=== PATIENT | female | born 1965 | race Caucasian/White ===

== ENCOUNTER 2024-10-03 07:50 | Outpatient (CLI) | payer OTHER, SELFPAY ==
--- NOTE | 2024-10-03 07:54 | MM_ITS ---
WS: [id number] BILATERAL SCREENING DIGITAL TOMOSYNTHESIS MAMMOGRAM WITH CAD HISTORY: SCREENING COMPARISON: None available. Bilateral CC and MLO views with tomosynthesis and synthetic mammography submitted. Computer aided det ection analyzed. Breast composition: The breasts are heterogeneously dense, which may obscure small masses. No suspici ous masses, microcalcifications or architectural distortion. MM/MM scr BI tomosynthesis [id number] IMPRESSION: BI-RADS: 3 - Probably Benign FOLLOW UP: 1 Year Follow-up
== END 2024-10-03 07:51 | disposition home or self-care (01) ==
LOC: RAD 07:52
PROVIDERS: PCP Nurse Practitioner; Visit Provider Nurse Practitioner
DX: Z12.31 Encounter for screening mammogram for malignant neoplasm of breast (principal); R92.333 Mammographic heterogeneous density, bilateral breasts
CPT/HCPCS: 77063; 77067

== ENCOUNTER → 2024-10-24 08:59 | Outpatient (BNVA) | payer OTHER, SELFPAY | PROVIDERS: PCP Nurse Practitioner; Visit Provider Nurse Practitioner Family | DX: L71.8 Other rosacea (principal); L91.8 Other hypertrophic disorders of the skin; D18.01 Hemangioma of skin and subcutaneous tissue; L85.3 Xerosis cutis; Z08 Encounter for follow-up examination after completed treatment for malignant neoplasm | CPT/HCPCS: 17000; 17110; 99204 ==

== ENCOUNTER → 2024-10-30 08:21 | Outpatient (BNVA) | payer OTHER, SELFPAY | PROVIDERS: PCP Nurse Practitioner; Visit Provider Specialist | DX: S83.206A Unspecified tear of unspecified meniscus, current injury, right knee, initial encounter; M25.561 Pain in right knee; G89.29 Other chronic pain; X58.XXXA Exposure to other specified factors, initial encounter | CPT/HCPCS: 73560; 73565; 99204 ==

== ENCOUNTER → 2024-11-06 07:38 | Outpatient (BNVA) | payer OTHER, SELFPAY | PROVIDERS: PCP Nurse Practitioner; Visit Provider Surgery | DX: Z12.11 Encounter for screening for malignant neoplasm of colon (principal); R03.0 Elevated blood-pressure reading, without diagnosis of hypertension | CPT/HCPCS: 99204 ==

== ENCOUNTER 2024-11-14 07:55 | Day surgery (SDC) | payer OTHER, SELFPAY ==
[2024-11-14 08:15] VITALS: BP 143/102; PULSE 93; RESP 18; TEMP 36.4; O2SAT 97; BMI 28.3
--- NOTE | 2024-11-14 08:18 | P.ANESASSM_ITS ---
Pre-Anesthetic Assessment Height/Weight: Height 1.6 m Preop Diagnosis: screening Operation Date: 11/14/24 09:15 Proposed Procedures p Colonoscopy 67174, G0121, Z12.11(Not Applicable) - Vladimir Duran MD Familial anesthetic complications: none Was Beta Radha taken within 24 hours: N/A Was Clonidine taken within 24 hours: N/A Social Alcohol and No tobacco Occassional alcohol, quit smoking 2004 Exam alert, oriented x 3, clear to auscultation bilaterally and regular rate & rhythm Airway Submandibular: within normal limits Cervical ROM: within normal limits Mallampati: Class II Dentition: full History/ROS No significant history except as noted and No significant complaints Pulmonary Chronic Obstructive Pulmonary Disease CV/HEM None reported None reported Hepatic None reported GI Gastroesophageal Reflux Disease Metabolic None reported Musc/skel None reported Rheumatoid arthritis Neuropsych None reported Anesthetic Plan ASA status: 3 Anesthesia: MAC Risk of > 500 ml blood loss (7ml/kg in children): No Medications/Allergies Home Medications ?Medication ?Instructions ?Recorded ?Confirmed ?Last Taken ?Type adalimumab 40 mg/0.8 mL See Rx Instructions SUBCUT . COMPLEX 10/30/24 11/14/24 11/01/24 History subcutaneous pen kit amitriptyline 50 mg tablet 50 mg PO DAILY 10/30/2404/0211/13/24 History bupropion HCl 150 mg 24 hr tablet, 150 mg PO QPM 10/3011/14/24 11/13/24 History extended release calcium 315 mg (as 1 tab PO BID 10/30/2411/13/24 History citrate)-vitamin D3 5 mcg (200 unit) tablet diclofenac sodium 1 % topical gel 2 g topical QID 10/1011/14/24 11/13/24 History (Arthritis Pain (diclofenac)) docusate sodium 50 mg capsule 50 mg PO BID 10/30/2411/13/24 History folic acid 1 mg tablet 1 mg PO DAILY 10/30/2411/1411/13/24 History hydroxychloroquine 300 mg tablet 300 mg PO DAILY 10/3011/14/24 11/13/24 History loratadine 10 mg tablet 10 mg PO DAILY 10/30/2404/0211/13/24 History methotrexate (PF) 25 mg/0.5 mL 25 mg SUBCUT .WEEKLY 11/14/24 11/08/24 History subcutaneous auto-injector (Rasuvo (PF)) pantoprazole 40 mg granules 40 mg PO DAILY 10/30/2411/13/24 History delayed-release for susp in packet sennosides 8.6 mg-docusate sodium 1 tab-cap PO DAILY 0 10/30/24 11/14/24 11/13/24 History 50 mg tablet syringe with needle 1 mL 27 gauge 10/30/24 11/14/24 U nknown History x 3/8 (BD Tuberculin Slip-Tip) zolpidem 5 mg tablet 5 mg PO DAILY 10/30/2411/1411/13/24 History Allergies Allergy/AdvReac Type Severity Reaction Status Date / Time Latex, Natural Rubber Allergy Intermediate hives Verified 11/12/24 10:06 small pox vaccine Allergy Intermediate swelling Uncoded 11/12/24 10:06 [facility] Anesthesia Social History Smoking and tobacco/nicotine status: never used tobacco/nicotine Data Anesthesia Cardiac Studies: No Data to Display
--- NOTE | 2024-11-14 08:18 | ANES.PREANE2 ---
Pre-Anesthetic Assessment Height/Weight: Height 1.6 m Preop Diagnosis: screening Operation Date: 11/14/24 09:15 Proposed Procedures p Colonoscopy 70924, G0121, Z12.11(Not Applicable) - Vladimir Duran MD Familial anesthetic complications: none Was Beta Radha taken within 24 hours: N/A Was Clonidine taken within 24 hours: N/A Social Alcohol and No tobacco Occassional alcohol, quit smoking 2004 Exam alert, oriented x 3, clear to auscultation bilaterally and regular rate & rhythm Airway Submandibular: within normal limits Cervical ROM: within normal limits Mallampati: Class II Dentition: full History/ROS No significant history except as noted and No significant complaints Pulmonary Chronic Obstructive Pulmonary Disease CV/HEM None reported None reported Hepatic None reported GI Gastroesophageal Reflux Disease Metabolic None reported Musc/skel None reported Rheumatoid arthritis Neuropsych None reported Anesthetic Plan ASA status: 3 Anesthesia: MAC Risk of > 500 ml blood loss (7ml/kg in children): No Medications/Allergies Home Medications ?Medication ?Instructions ?Recorded ?Confirmed ?Last Taken ?Type adalimumab 40 mg/0.8 mL See Rx Instructions SUBCUT .COMPLEX 10/30/24 11/14/24 11/01/24 History subcutaneous pen kit amitriptyline 50 mg tablet 50 mg PO DAILY 10/30/24 11/14/24 11/13/24 History bupropion HCl 150 mg 24 hr tablet, 150 mg PO QPM 10/30/24 11/14/24 11/13/24 History extended release calcium 315 mg (as 1 tab PO BID 10/30/24 11/14/24 11/13/24 History citrate)-vitamin D3 5 mcg (200 unit) tablet diclofenac sodium 1 % topical gel 2 g topical QID 10/30/24 11/14/24 11/13/24 History (Arthritis Pain (diclofenac)) docusate sodium 50 mg capsule 50 mg PO BID 10/30/24 11/14/24 11/13/24 History folic acid 1 mg tablet 1 mg PO DAILY 10/30/24 11/14/24 11/13/24 History hydroxychloroquine 300 mg tablet 300 mg PO DAILY 10/30/24 11/14/24 11/13/24 History loratadine 10 mg tablet 10 mg PO DAILY 10/30/24 11/14/24 11/13/24 History methotrexate (PF) 25 mg/0.5 mL 25 mg SUBCUT .WEEKLY 10/30/24 11/14/24 11/08/24 History subcutaneous auto-injector (Rasuvo (PF)) pantoprazole 40 mg granules 40 mg PO DAILY 10/30/24 11/14/24 11/13/24 History delayed-release for susp in packet sennosides 8.6 mg-docusate sodium 1 tab-cap PO DAILY 10/30/24 11/14/24 11/13/24 History 50 mg tablet syringe with needle 1 mL 27 gauge 10/30/24 11/14/24 Unknown History x 3/8 (BD Tuberculin Slip-Tip) zolpidem 5 mg tablet 5 mg PO DAILY 10/30/24 11/14/24 11/13/24 History Allergies Allergy/AdvReac Type Severity Reaction Status Date / Time Latex, Natural Rubber Allergy Intermediate hives Verified 11/12/24 10:06 small pox vaccine Allergy Intermediate swelling Uncoded 11/12/24 10:06 [facility] Anesthesia Social History Smoking and tobacco/nicotine status: never used tobacco/nicotine Data Anesthesia Cardiac Studies: No Data to Display
[2024-11-14] MEDS: sodium chloride 0.9% 500 ML 15 ML IV (08:21)
--- NOTE | 2024-11-14 08:25 | P.HPUD_ITS ---
Surgery/Procedure H&P Update DATE OF PROCEDURE: November 14, 2024 DATE H&P PERFORMED: 11/06/24 H&P UPDATE INFORMATION: I have reviewed H&P completed within last 30 days, I have examined patient prior to procedure, No changes to prior documentation and H&P is in [facility] EMR on date indicated PREOP DIAGNOSIS: screening PLANNED PROCEDURE: Operation Date: 11/14/24 09:15 Proposed Procedures p Colonoscopy 79742, G0121, Z12.11(Not Applicable) - Vladimir Duran MD
[2024-11-14 09:03] VITALS: BP 118/76; PULSE 81; RESP 18; TEMP 36.2; O2SAT 90
[2024-11-14 09:21] VITALS: BP 128/78; PULSE 70; RESP 16; O2SAT 95
[2024-11-14 09:26] VITALS: O2SAT 98
--- NOTE | 2024-11-14 09:40 | ANE.PACU2 ---
Inpatient post-anesthesia follow up: Airway intact: Yes Vital signs: Temperature 97.2 F Pulse Rate 70 Respiratory Rate 16 Blood Pressure 128/78 Pulse Oximetry 98 Oxygen Delivery Me thod Room Air Oxygen Flow Rate Fraction of Inspir ed Oxygen Hydration adequate: Yes Nausea and vomiting: No Pain level: 1 Mental status: Baseline
== END 2024-11-14 09:40 | disposition home or self-care (01) ==
PROVIDERS: PCP Nurse Practitioner; Visit Provider Surgery
PROC: 0DJD8ZZ Inspection of Lower Intestinal Tract, Via Natural or Artificial Opening Endoscopic (ICD-10-PCS; CPT 45378; principal; 2024-11-14 09:15)
DX: Z12.11 Encounter for screening for malignant neoplasm of colon (principal); J44.9 Chronic obstructive pulmonary disease, unspecified; K21.9 Gastro-esophageal reflux disease without esophagitis; Z87.891 Personal history of nicotine dependence; Z79.899 Other long term (current) drug therapy; Z88.8 Allergy status to other drugs, medicaments and biological substances; K63.89 Other specified diseases of intestine; D12.5 Benign neoplasm of sigmoid colon
CPT/HCPCS: 45380; 45385; 88305; J2704; J7040

== ENCOUNTER 2024-11-15 07:50 | Outpatient (CLI) | payer OTHER, SELFPAY ==
--- NOTE | 2024-11-15 08:00 | MR_ITS ---
WS: [id number] MRI RIGHT KNEE ARTHROGRAM TECHNIQUE: Axial PD, coronal PD fat sat, coronal PD, sagittal PD, and sagittal PD fat-sat images obtained. Intra-articular gadolinium CLINICAL INFORMATION: right knee pain. History of RIGHT knee scope x2. FINDINGS: Distal quadriceps and patella tendons are intact. Hypertrophic patella. Moderate chondromalacia patella. Medial and lateral patellar retinaculum are intact. Grade III chondromalacia involving the medial joint compartment with chondral fissuring and and a near full-thickness cartilage defect. No subchondral edema. Diffuse thickening with increased T1 and T2 signal involving the ACL likely due to mucoid degeneration. Recommend correlation for prior ACL injury. Normal lateral meniscus. High-grade tear involving the medial meniscus at the meniscal root with peripheral extrusion of the medial meniscus. Blunting of the posterior horn. Recommend correlation with prior meniscectomy. Full-thickness cartilage defect along the articular surface medial femoral condyle measures approximately 7 mm in AP dimension and 5 mm in transverse dimension. Small amount of fluid deep to the lateral collateral ligament which appears intact. Normal popliteus. Normal medial collateral ligament. Normal popliteal fossa.. Normal PCL. MR/MR knee RT wo/w con [id number] IMPRESSION: 1. 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 Recommend jeri elation for prior ACL injury. Normal PCL. 2. Chronic appearing tear involving the medial meniscus posterior horn at the meniscal root with moderate to loss of the medial joint space. 3. Near full-thickness cartilage defect involving the medial femoral condyle m easuring 7 x 5 mm at the articular surface. No subchondral edema. 4. Moderate chondromalacia patella. 5. Small amount of fluid deep to the lateral collateral ligament can be seen w ith grade 1 injury. LCL and MCL appear intact. 6. No other acute findings. Outbridge grading: grade III: partial-thickness cartilage loss with focal ulcer ation
--- NOTE | 2024-11-15 08:00 | IR_ITS ---
WS: [id number] Right knee arthrogram for MRI of the right knee, 11/15/2024 Clinical Data: knee pain Comparison: Bilateral knees, 10/30/2024 Fluoroscopy time: 0min [id number] # of spot films: 1 Findings: The lateral aspect of the right knee was cleansed with iodine. Approximately 5 mL of 1% lidocaine were injected to anesthetize the skin and subcutaneous tissues. A 22-gauge spinal needle was inserted in the knee joint and a mixture of saline, gadolinium, contrast and lidocaine was injected to a volume of 40 mL. No complications occurred. IR/[place] [id number] Impression: Right knee arthrogram
[2024-11-15] MEDS: iohexol 240 mg/mL 50 mL Btl 25 ML INTRA-ARTI (10:33)
== END 2024-11-15 07:51 | disposition home or self-care (01) ==
LOC: RAD 07:51
PROVIDERS: PCP Nurse Practitioner; Visit Provider Specialist
DX: S83.206A Unspecified tear of unspecified meniscus, current injury, right knee, initial encounter (principal); M25.561 Pain in right knee; M22.41 Chondromalacia patellae, right knee; X58.XXXA Exposure to other specified factors, initial encounter
CPT/HCPCS: 27369; 73723; 77002; A9577

== ENCOUNTER → 2024-11-26 09:18 | Outpatient (BNVA) | payer OTHER, SELFPAY | PROVIDERS: PCP Nurse Practitioner; Visit Provider Surgery | DX: Z09 Encounter for follow-up examination after completed treatment for conditions other than malignant neoplasm (principal); R03.0 Elevated blood-pressure reading, without diagnosis of hypertension | CPT/HCPCS: 99213 ==

== ENCOUNTER → 2024-12-04 07:57 | Outpatient (BNVA) | payer OTHER, SELFPAY | PROVIDERS: PCP Nurse Practitioner; Visit Provider Specialist | DX: M25.561 Pain in right knee (principal); Z09 Encounter for follow-up examination after completed treatment for conditions other than malignant neoplasm | CPT/HCPCS: 20610; 99214; J1100; J2795; J3301 ==

== ENCOUNTER 2024-12-18 10:21 | Outpatient (RCR) | payer OTHER, SELFPAY | END 2025-01-06 23:59 | disposition home or self-care (01) | LOC: SPT 10:21 | PROVIDERS: Visit Provider Specialist | DX: M25.561 Pain in right knee (principal) | CPT/HCPCS: 97110; 97161 ==

== ENCOUNTER → 2024-12-31 08:46 | Outpatient (BNVA) | payer OTHER, SELFPAY | PROVIDERS: PCP Nurse Practitioner; Visit Provider Internal Medicine Rheumatology | DX: M05.79 Rheumatoid arthritis with rheumatoid factor of multiple sites without organ or systems involvement (principal); Z79.899 Other long term (current) drug therapy; Z71.85 Encounter for immunization safety counseling | CPT/HCPCS: 36415; 80076; 82565; 85025; 85651; 86140; 86480; 86704; 86803; 87340; 99204 ==

== ENCOUNTER 2025-01-07 16:38 | Outpatient (RCR) | payer OTHER, SELFPAY | END 2025-02-05 23:59 | disposition home or self-care (01) | LOC: SPT 16:38 | PROVIDERS: Visit Provider Specialist | DX: M25.561 Pain in right knee (principal) | CPT/HCPCS: 97110 ==

== ENCOUNTER 2025-02-06 05:00 | Outpatient (RCR) | payer OTHER, SELFPAY | END 2025-02-28 09:05 | disposition home or self-care (01) | LOC: SPT 05:00 | PROVIDERS: Visit Provider Specialist | DX: M25.561 Pain in right knee (principal) | CPT/HCPCS: 97110 ==

== ENCOUNTER 2025-04-25 07:58 | Emergency (ER) | payer OTHER, SELFPAY ==
--- OUTSIDE RECORDS SUMMARY | 2024-07-15 08:00 | XMS_ITS | Encounter Summary ---
Author Name [facility] Address [address] [place] [address] Care Team Providers Care Caustics Loader Name Role Phone KAT HARGROVE Primary Care Provider Unavail able ANDREZ PAYNE Primary Care Provider Unavail able Insurance Providers: All historical and current Section Date Range: From patient's date of to the date document was created. This section includes the names of all active insurance providers for the patient. Insurance Provider Type of Coverage Plan Name Start of Policy Coverage End of Policy Coverage Group Number Member ID Insurance Provider's Telephone Number Policy Luna's Name Patient's Relationship to Policy Luna BCBS FEP RETIREE [id number] RETIR EE Feb 04, 2007 [id number] ALBERT,A NNETTE PATIENT BCBS FEP PREFERRED PROVIDER ORGANIZAT ION (PPO) [id number] Oct 09, 2005 [id number] [phone] ALBERT,A NNETTE PATIENT [place] F[place] PRESCRIPT [place]ON [id number] Oct 09, 2007 [id number] ALBERT,See NNETTE PATIENT [place] FEP RX [id number] PRESCRIPT ION [id number] Oct 09, 2006 [id number] [phone] See PRICE PATIENT Selected Encounter This section includes the information on record at [place] for the Encounter. Date/Time Encounter Type Encounter Description Reason Provider Source Jul 15, 2024 01:00 PM OFFICE O/P EST MOD 30 MIN RHEUMATOLOGY/ARTH RITIS ICD-10-CM M06.9 Rheumatoid arthritis, unspecified ARMANDO AMANDA IHAri Encounter Template Text not used by [place] Assessments - Encounter Diagnoses This section includes the primary and secondary diagnoses documented for the Encounter. Date/Time Primary/Secondary Diagnosis Diagnosis Name Provider Source Jul 15, 2024 01:50 PM PRIMARY Rheumatoid arthritis, unspecified DELMER GALICIA [facility] Jul 15, 2024 01:50 PM SECONDARY Other jail (current) drug therapy DELMER GALICIA [facility] Plan of Treatment: Future Appointments (+ 6 months) and Future Tests (+/- 45 days) The Plan of Treatment section includes future care activities for the patient from all [place] treatmentfacilities. This section includes future appointments and future orders which are active, pending or scheduled. Future Appointments This section includes appointments that were scheduled to occur 6 months from the date of the Encounter, up to a maximum of 20 appointments. The data comes from all [place] treatment facilities. Appointment Date/Time Appointment Type Appointme nt Facility Name Sep 19, 2024 09:01 AM AMBULATORY - MEDICINE [facility] Oct 03, 2024 08:20 AM AMBULATORY - NEUROLOGY [facility] Oct 14, 2024 09:00 AM AMBULATORY - MEDICINE [facility] Oct 14, 2024 02:00 PM AMBULATORY - MEDICINE [facility] Oct 24, 2024 09:30 AM AMBULATORY - MEDICINE [facility] Oct 30, 2024 08:30 AM AMBULATORY - MEDICINE [facility] Nov 05, 2024 09:30 AM AMBULATORY - MEDICINE [facility] Nov 06, 2024 08:00 AM AMBULATORY - MEDICINE [facility] Nov 06, 2024 02:10 PM AMBULATORY - MEDICINE [facility] Dec 05, 2024 09:11 AM AMBULATORY - MEDICINE [facility] Dec 31, 2024 09:00 AM AMBULATORY - MEDICINE [facility] Active, Pending, and Scheduled Orders This section includes a listing of several types of active, pending, and scheduled orders, including clinic medications orders, diagnostic test orders, procedure orders and consult orders; where the start date of the order is 45 days before the date of the Encounter or 45 days after the date of theEncounter. The data comes from all [place] treatment facilities. Test Date/Time Test Type Test Details Facility Name Jul 12, 2024 12:00 AM Laboratory - Chemi stry Order CBC WITH AUTO DIFF*CI,NE BLOOD, LAVENDER SP [facility] Jul 12, 2024 12:00 AM Laboratory - Chemi stry Order ALT*NE BLOOD, RED OR GREEN OR GOLD SP ONCE [facility] Jul 12, 2024 12:00 AM Laboratory - Chemi stry Order AST*NE BLOOD, RED OR GREEN OR GOLD SP ONCE [facility] Jul 12, 2024 12:00 AM Laboratory - Chemi stry Order ALBUMIN*NE BLOOD, RED OR GREEN OR GOLD SP ONCE [facility] Jul 12, 2024 12:00 AM Laboratory - Chemi stry Order CREATININE + eGFR*NE BLOOD, RED OR GREEN OR GOLD SP ONCE [facility] Jul 12, 2024 12:00 AM Laboratory - Chemi stry Order SEDRATE*NE BLOOD, SED RATE SP ONCE [facility] Jul 12, 2024 12:00 AM Laboratory - Chemi stry Order C-REACTIVE PROTEIN*NE BLOOD, RED OR GREEN OR GOLD SP [facility] Jul 15, 2024 01:20 PM Laboratory - Chemi stry Order ALT*NE BLOOD, RED OR GREEN OR GOLD SP ONCE [facility] Lab Results: +/- 30 days of the encounter This section includes the Chemistry and Hematology Lab Results on record with [place] for the patient. Radiology Reports and Pathology Reports are provided separately, in subsequent sections. Lab Results This section contains the Chemistry/Hematology Results that were resulted 30 days before or 30 daysafter the date of the Encounter. Date/Time Source Result Type Result - Unit Interpretation Reference Range Specimen Type Comment Jul 15, 2024 02:16 PM [facility] C-REACTIVE PROTEIN*NE BLOOD Specimen Type: BLOOD Comment: eGFR(mL/min/1.73 m2) CKD stage Interpretation >=90 G1 Normal 60-89 G2 Mild decrease 45-59 G3A Mild to moderate decrease 30-44 G3B Moderate to severe decrease 15-29 G4 Severe decrease <15 G5 Kidney failure Ordering Provider: DELMER GALICIA Report Released Date/Time: Jul 15, 2024 01:20 PM Reporting Lab: [facility] [address] [phone] Performing Lab: [facility] [address] [phone] C-REACTIVE PROTEIN*NE <0.5 mg/dL < 1.0 Jul 15, 2024 02:16 PM [facility] AST*NE BLOOD Specimen Type: BLOOD Comment: eGFR(mL/min/1.73 m2) CKD stage Interpretation >=90 G1 Normal 60-89 G2 Mild decrease 45-59 G3A Mild to moderate decrease 30-44 G3B Moderate to severe decrease 15-29 G4 Severe decrease <15 G5 Kidney failure Ordering Provider: DELMER GALICIA Report Released Date/Time: Jul 15, 2024 01:20 PM Reporting Lab: [facility] [address] [phone] Performing Lab: [facility] [address] [id number] AST*NE 29 [IU]/L 15-46 Jul 15, 2024 02:16 PM [facility] ALBUMIN*NE BLOOD Specimen Type: BLOOD Comment: eGFR(mL/min/1.73 m2) CKD stage Interpretation >=90 G1 Normal 60-89 G2 Mild decrease 45-59 G3A Mild to moderate decrease 30-44 G3B Moderate to severe decrease 15-29 G4 Severe decrease <15 G5 Kidney failure Ordering Provider: DELMER GALICIA Report Released Date/Time: Jul 15, 2024 01:20 PM Reporting Lab: [facility] [address] [phone] Performing Lab: [facility] [address] [phone] ALBUMIN*NE 4.6 g/dL 3.5-5.0 Jul 15, 2024 02:16 PM [facility] SEDRATE*NE BLOOD Specimen Type: BLOOD No comment entered. Ordering Provider: DELMER GALICIA Report Released Date/Time: Jul 15, 2024 01:20 PM Reporting Lab: [facility] [address] [phone] Performing Lab: [facility] [address] [phone] SEDRATE*NE 12 mm/h 0-30 Jul 15, 2024 02:16 PM [facility] CREATININE + eGFR*NE BLOOD Specimen Type: BLO OD Comment: eGFR(mL/min/1.73 m2) CKD stage Interpretation >=90 G1 Normal 60-89 G2 Mild decrease 45-59 G3A Mild to moderate decrease 30-44 G3B Moderate to severe decrease 15-29 G4 Severe decrease <15 G5 Kidney failure Ordering Provider: DELMER GALICIA Report Released Date/Time: Jul 15, 2024 01:20 PM Reporting Lab: [facility] [address] [place] [address] Performing Lab: [facility] [address] [place] [address] CREATININE*NE 1.0 mg/dL 0.5-1.0 eGFR (CKD-EPI) 66 Jul 15, 2024 02:16 PM [facility] CBC WITH AUTO DIFF*CI,NE BLOOD Specimen Type: BLOOD No comment entered. Ordering Provider: DELMER GALICIA Report Released Date/Time: Jul 15, 2024 01:20 PM Reporting Lab: [facility] [place] [address] Performing Lab: [facility] [place] [address] WBC 5.6 10*3/uL 4.0-11.0 RBC 4.52 10*6/uL 3.7-5.4 HGB 14.1 g/dL 11.5-16 HCT 42.3 34-48 MCV 93.6 fL 80.0-98.0 MCH 31.2 pg 27.0-33.0 MCHC 33.3 g/dL 32.0-36.0 PLT 254 10*3/uL 150-450 RDW 13.4 11.5-15.0 ABS NEUTROPHIL 3.1 10*3/uL 1.7-7.0 NEUTROPHIL % 55.1 43.0-76.0 LYMPHOCYTE % 31.9 16.0-45.0 MONOCYTE % 7.5 5.0-14.0 EOSINOPHIL % 4.1 0.0-5.0 BASOPHIL % 1.2 H 0.0-1.0 ABS LYMPHOCYTE 1.8 10*3/uL 1.0-3.5 ABS MONOCYTE 0.4 10*3/uL 0.2-1.1 ABS EOSINOPHIL 0.2 10*3/uL 0.0-0.4 ABS BASOPHIL 0.1 10*3/uL 0.0-0.1 MPV 10.1 fL 8.3-12.4 IMMATURE GRAN % 0.2 0.0-0.9 ABS IMMATURE GRAN 0.0 10*3/uL 0.00-0.07 NUCLEATED RBC % 0.0 0.0-0.2 ABS NUCLEATED RBC 0.0 10*3/uL 0.00-0.12 Social History: Smoking Status (Most current) and Tobacco Use (All prior to encounter date) This section includes the most current, and the historical, smoking and tobacco- related health factors from the [place] facility where the Encounter took place. Current Smoking Status This section includes the most current smoking, or tobacco-related health factor, from the [place] facility where the Encounter took place. Date/Time Current Smoking Status Comment Byron obrien February 14, 2023 08:15 AM VA-TOBACCO FORMER USER [facility] Tobacco Use History This section includes a history of the smoking, or tobacco-related health factors, that were collected on or before the date of the Encounter. The data comes from the [place] facility where the Encounter took place. Date/Time Smoking Status/Tobacco Use Comment Karen tarango February 14, 2023 08:15 AM [place]-TOBACCO QUIT 15 YRS OR MORE [facility] Encounter Notes: All associated encounter notes This section contains the clinical notes associated to the Encounter. Date/Time Encounter Note(s) Provider Source Jul 15, 2024 01:23 PM RHEUMATOLOGY OUTPATIENT NOTE: LOCAL TITLE: RHEUMATOLOGY CLINIC NOTE STANDARD TITLE: RHEUMATOLOGY OUTPATIENT NOTE DATE OF NOTE: JUL 15, 2024@13:23 ENTRY DATE: JUL 15, 2024@13:27:22 AUTHOR: DELMER GALICIA EXP COSIGNER: ARMANDO AMANDA URGENCY: STATUS: COMPLETED RHEUMATOLOGY CLINIC NOTE Has ADDENDA ACTIVE PROBLEMS: 1. Rheumatoid arthritis - Diagnosed 11/2018 - RF negative, anti-CCP 60, RYAN 1:80; non-erosive (hands/feet) - Previous tx: Triple tx with hcq, ssz discontinued after enbrel initiated - Oral MTX held temporarily in 2020 with acute ALT/AST elevation, now resolved Enbrel 50mg sc weekly (start date: 12/2020 to 08/2022) lost efficacy Current tx: MTX 15 mg sc weekly, Humira 40 mg q14d. folic acid 4 mg daily. HCQ 200 BID. 2. Keratoconjunctivitis sicca 3. Hyperlipidemia 4. Irritable bowel syndrome 5. PTSD 6. GERD 7. Tobacco use history - quit in 2004 8. Acute ALT/AST elevation in May 2021, resolved. ALT peaked at 140, AST peaked at 105. Hepatitis A/B/C viral studies, anti-smooth muscle antibody negative. Moderate alcohol use (3-4 drinks per week), BMI 30, previous hyperlipidemia/hypertriglycerid emia 9. Basal cell carcinoma - nose - s/p Mohs 2020 10. [facility] OA Active Outpatient Medications (excluding Supplies): Active Outpatient Medications Status 1) ADALIMUMAB-BWWD 40MG/0.8ML AUTOINJECTOR INJECT 40MG ACTIVE (0.8ML) UNDER THE SKIN EVERY 14 DAYS 2) AMITRIPTYLINE HCL 50MG TAB TAKE ONE TABLET BY MOUTH ACTIVE AT BEDTIME FOR MOOD 3) BUPROPION HCL 150MG 12HR SA TAB TAKE ONE TABLET BY ACTIVE (S) MOUTH EVERY 12 HOURS FOR MOOD 4) CALCIUM CITRATE 315MG/VIT D 200 UNT TAB TAKE 2 ACTIVE TABLETS BY MOUTH TWICE A DAY 5) CLONIDINE HCL 0.1MG TAB TAKE ONE TABLET BY MOUTH AT ACTIVE (S) BEDTIME NEEDED FOR NIGHTMARES FOR SYMPTOMS 6) DICLOFENAC NA 1% TOP GEL APPLY 2 GRAM TOPICALLY FOUR ACTIVE TIMES A DAY (USE DOSING CARD TO MEASURE DOSE) 7) DOCUSATE NA 50MG/SENNOSIDES 8.6MG TAB TAKE 2 TABLETS ACTIVE BY MOUTH DAILY FOR CONSTIPATION 8) FOLIC ACID 1MG TAB TAKE FOUR TABLETS BY MOUTH EVERY ACTIVE DAY 9) GABAPENTIN 300MG CAP TAKE THREE CAPSULES BY MOUTH ACTIVE (S) EVERY DAY FOR NIGHT SWEATS FOR NIGHT SWEATS 10) HYDROXYCHLOROQUINE SULFATE 300MG TAB TAKE ONE TABLET ACTIVE (S) BY MOUTH EVERY DAY FOR RHEUMATOID ARTHRITIS 11) LACTOBACILLUS ACIDOPHILUS CHEW TAB CHEW 2 TABLETS BY ACTIVE (S) MOUTH EVERY DAY FOR DIETARY SUPPLEMENT FOR DIGESTION 12) LORATADINE 10MG TAB TAKE ONE TABLET BY MOUTH EVERY ACTIVE (S) DAY FOR ALLERGIES (SAME CLARITIN) 13) METHOTREXATE NA 25MG/ML INJ INJECT 15 MG (0.6 ML) ACTIVE UNDER THE SKIN EVERY 7 DAYS 14) PANTOPRAZOLE NA 40MG EC TAB TAKE ONE TABLET BY MOUTH ACTIVE (S) EVERY DAY FOR GASTROESOPHAGEAL REFLUX DISEASE 15) ZOLPIDEM TARTRATE 5MG TAB TAKE ONE TABLET BY MOUTH AT ACTIVE BEDTIME NEEDED FOR SLEEP Active Non-VA Medications Status 1) Non-VA ZZFISH OIL 1000MG (500MG DHA/EPA) CAP 1000MG ACTIVE BY MOUTH EVERY DAY 2) Non-VA ZZTUMERIC CAP/TAB 1 CAP/TAB BY MOUTH EVERY DAY ACTIVE 17 Total Medications INTERVAL HISTORY: Ms. Zimmerman was seen today via video visit for follow up on her rheumatoid arthritis. She was last seen in person in March for her RA, at was continued on her current regimen on humira q14 days, mtx 15 subq, and HCQ 300mg daily. Today she reports that she has been in the process of moving to [facility] as her house is now built. She has been packing and going back and forth between [place] and it is a 7-[address] She has been having more issues with pain, stiffness and swelling in her hands recently. She notes most of the pain and swelling is in her PIPs, her thumb also bothers her. Her morning stiffness is now lasting about 1 hour. Her other joints are doing well. She does not think her joints are currently swollen, but sometimes her PIPs look more puffy. She continues to tolerate her medications well without side effect. AM Stiffness: 1 hour REVIEW OF SYSTEMS: Vision changes: none Oral Ulcers: none Rash: none Shortness of breath: none Chest pain: none Abdominal pain: none Nausea/Vomiting: none Numbness/Tingling: none Weakness limited to one side of the body: none Fever: none Signs of infection: none Other ROS per HPI PHYSICAL EXAMINATION: Limited today as seen via video visit. General: Alert, NAD Lungs: breathing appeared non labored Joints: no apparent swelling of hands or wrists over video visit LABS/XRAYS: wbc 6.1 K/uL (01/30/2024 07:13) hgb 14.6 g/dL (01/30/2024 07:13) plt 278 K/uL (01/30/2024 07:13) mcv 94.2 fL (01/30/2024 07:13) rdw 13.6 % (01/30/2024 07:13) ast 25 IU/L (01/30/2024 07:14) alt 19 IU/L (01/30/2024 07:14) alb 4.5 g/dL (01/30/2024 07:14) Cr 1.0 mg/dL (01/30/2024 07:14) esr 11 mm/hr (01/30/2024 07:13) crp <0.5 mg/dL (01/30/2024 07:14) C3 0 C4 0 uric acid No data available for: URIC ACID*NE LAB TESTS SELECTED Collection DT Specimen Test Name Result Units Ref Range 02/06/2018 09:19 BLOOD RHEUMATOID FACTOR <9 IU/ML 0 - 12 Hand & Foot Films: No data available Dexa Scans: Date Procedure CPT Status Case # 02/20/2024 DXA BONE DENSITY AXIAL [id number] Verified 2086 Normal bone mineral density in the lumbar spine. (It should be noted that the bone mineral density of the lumbar spine may be spuriously elevated in the setting of lumbar spondylosis. Correlation with plain film imaging of the lumbar spine recommended.) Mild osteopenia in the left femoral neck. Osteopenia in the right femoral neck. World Health Organization fracture risk assessment tool measures 10 year risk of major osteoporotic fracture at 9.0 % with risk of hip fracture at 0.8 %. 12/14/2021 DXA BONE DENSITY AXIAL 87123 Verified 1297 1. The lumbar spine bone mineral density is normal. 2. The mean femoral neck bone mineral density is mildly osteopenic. 3. The calculated ten-year fracture risk probability is as follows: Major osteoporotic fracture-15% and hip fracture-0.4%. 07/29/2019 DXA BONE DENSITY AXIAL [id number] Verified 634 1. The lumbar spine and mean femoral neck bone mineral densities are mildly osteopenic. 2. The calculated ten-year fracture risk probability is as follows: Major osteoporotic fracture-12% and hip fracture-0.4%. IMPRESSION/PLAN: 1) RA (714.0): Ms. Zimmerman was seen today via [facility] video visit for follow up of her RA. She had overall been doing well, however the past month has had more pain and stiffness in her hands bilaterally with her ongoing move to [facility]. She is overdue for lab work, she is currently in [place], so will get her labs drawn this week at [facility]. As long as stable, we will have her increase her MTX to 17.5mg subq weekly from 15mg. She previously had transient LFT elevation on 20mg so will monitor lab closely. We will otherwise continue her current medication regimen. With her move to [facility], no [facility] hydraulic lift driver in the area, but will be back in [place] semi-regularily to see family. We will continue to see her via [facility], and at least once annually in person. She prefers to do her next visit via VVC and see us in person in the Spring. - Increase methotrexate from 15 to 17.5 mg SQ once weekly with FA 4 mg daily - She is due for toxicity monitoring labs and will get this week at [facility] - Continue hydroxychloroquine 300mg daily (she has 300mg tabs and takes 1 per day, she prefers this to alternating 200/400mg) - Continue Humira q14 days - RTC in 3 months on VVC, next visit after this in person 2) Medication toxicity monitoring (v58.69): Labs 01/2023 stable and acceptable. -She is due for toxicity monitoring labs and will get these drawn at [facility] as she is in [facility] -Continue q3 months labs. She is aware of need for close lab monitoring and will get these drawn when she is in [facility] -Reports normal plaquenil eye exam 2022 with outside youth development professional. Continue yearly eye exams 3) Bone Health: DEXA 02/2024 with osteopenia, FRAX 8.7%/0.7%. - continue calcium/vitD The patient was instructed to return to clinic via VVC visit in 3 months, and to contact us with questions or concerns in the interim. This patient was staffed by Dr. Amanda who agrees with assessment and plan above. /néstor/ DELMER GALICIA Rheumatology Fellow Signed: 07/15/2024 13:48 /néstor/ ARMANDO AMANDA STAFF PHYSICIAN Cosigned: 07/15/2024 14:42 07/15/2024 ADDENDUM STATUS: AILYN Banuelos was seen in [facility] visit. She is doing well. We will not make any changes to her regimen. She is in [place] and will get labs done. acc /néstor/ ARMANDO AMANDA STAFF PHYSICIAN Signed: 07/15/2024 14:44 DELMER GALICIA [facility]
--- OUTSIDE RECORDS SUMMARY | 2024-09-19 04:01 | XMS_ITS | Encounter Summary ---
Author Name [facility] Address [address] [place] [address] Care Team Providers Care Efficiency Engineer Name Role Phone KAT HARGROVE Primary Care [...] 4 RETIR EE Feb 04, 2007 [id number] ALBERT,A NNETTE PATIENT BCBS FEP PREFERRED PROVIDER ORGANIZAT ION (PPO) [id number] Oct 09, 2005 [id number] [phone] ALBERT,A NNETTE PATIENT CAREMARK FEP PRESCRIPT ION [id number] Oct 09, 2007 [id number] [phone] ALBERT,See NNETTE PATIENT [place]EMARK FEP RX [id number] PRESCRIPT ION [id number] 500 Oct 09, 2006 [id number] See PRICE PATIENT Selected Encounter This section includes the information on record at NH for the Encounter. Date/Time Encounter Type Encounter Description Reason Provider Source Sep 19, 2024 09:01 AM OFFICE O/P NEW MOD 45 MIN PRIMARY CARE/MEDICINE ICD-10-CM F43.12 Post-traumatic stress disorder, chronic LYNDSEY HARGROVE IHE Encounter Template Text not used by VA Assessments - Encounter Diagnoses This section includes the primary and secondary diagnoses documented for the Encounter. Date/Time Primary/Secondary Diagnosis Diagnosis Name Provider Source Sep 22, 2024 09:20 PM PRIMARY Post-traumatic stress disorder, chronic ESTEBAN HARGROVE [facility] Sep 22, 2024 09:20 PM SECONDARY Allergic rhinitis, unspecified ESTEBAN HARGROVE R [facility] Sep 22, 2024 09:20 PM SECONDARY Basal cell carcinoma of skin of unspecified parts of face ESTEBAN HARGROVE R [facility] Sep 22, 2024 09:20 PM SECONDARY Chronic kidney disease, stage 3 unspecified ESTEBAN HARGROVE R [facility] Sep 22, 2024 09:20 PM SECONDARY Chronic obstructive pulmonary disease, unspecified ESTEBAN HARGROVE NE R [facility] Sep 22, 2024 09:20 PM SECONDARY Contact with and exposure to other hazardous substances ESTEBAN HARGROVE R [facility] Sep 22, 2024 09:20 PM SECONDARY Depression, unspecified ESTEBAN HARGROVE NE [facility] Sep 22, 2024 09:20 PM SECONDARY Gastro-esophageal reflux disease without esophagitis ESTEBAN HARGROVE R [facility] Sep 22, 2024 09:20 PM SECONDARY Hyperlipidemia, unspecified ESTEBAN HARGROVE NE [facility] Sep 22, 2024 09:20 PM SECONDARY Insomnia, unspecified ESTEBAN HARGROVE NE [facility] Sep 22, 2024 09:20 PM SECONDARY Irritable bowel syndrome, unspecified ESTEBAN HARGROVE NE [facility] Sep 22, 2024 09:20 PM SECONDARY Low back pain, unspecified ESTEBAN HARGROVE NE [facility] Sep 22, 2024 09:20 PM SECONDARY Oth disrd of bone density and structure, unspecified site ESTEBAN HARGROVE R [facility] Sep 22, 2024 09:20 PM SECONDARY Rheumatoid arthritis, unspecified ESTEBAN HARGROVE R [facility] Sep 22, 2024 09:20 PM SECONDARY Tinnitus, unspecified ear ESTEBAN HARGROVE R [facility] Plan of Treatment: Future Appointments (+ 6 months) and Future Tests (+/- 45 days) The Plan of Treatment section includes future care activities for the [facility] This section includes future appointments and future orders which are active, pending or scheduled. Future Appointments This section includes appointments that were scheduled to occur 6 months from the date of the Encounter, up to a maximum of 20 appointments. The data comes from all [place] treatment [facility]. Appointment Date/Time Appointment Type Appointme nt Facility Name Oct 03, 2024 08:20 AM AMBULATORY - [facility]UROLOGY [place] [facility] Oct 14, 2024 09:00 AM AMBULATORY - MEDICINE [place] [facility] Oct 14, 2024 02:00 PM AMBULATORY - MEDICINE [facility] Oct 24, 2024 09:30 AM AMBULATORY - MEDICINE [place] [facility] Oct 30, 2024 08:30 AM AMBULATORY - MEDICINE [place] [facility] Nov 05, 2024 09:30 AM AMBULATORY - MEDICINE [place] [facility] Nov 06, 2024 08:00 AM AMBULATORY - MEDICINE [place] [facility] Nov 06, 2024 02:10 PM [place]ULATORY - MEDIC[place] [facility] Dec 05, 2024 09:11 AM AMBULATORY - MEDICINE [place] [facility] Dec 31, 2024 09:00 AM AMBULATORY - MEDICINE [place] [facility] Feb 05, 2025 10:20 AM AMBULATORY - MEDIC[place] [facility] Mar 20, 2025 08:30 AM AMBULATORY - MEDICINE [facility] Active, Pending, and Scheduled Orders This section includes a listing of several types of active, pending, and scheduled orders, including clinic medications orders, diagnostic test orders, procedure orders and consult orders; where the start date of the order is 45 days before the date of the Encounter or 45 days after the date of theEncounter. The data comes from all [place] treatment [facility]. Test Date/Time Test Type Test Details Facility Name Oct 15, 2024 12:00 AM Laboratory - Chemi stry Order CBC (NO DIFF)*NE BLOOD, LAVENDER SP ONCE [facility] Oct 15, 2024 12:00 AM Laboratory - Chemi stry Order ALT*NE BLOOD, RED OR GREEN OR GOLD SP ONCE [facility] Oct 15, 2024 12:00 AM Laboratory - Chemi stry Order ALBUMIN*NE BLOOD, RED OR GREEN OR GOLD SP ONCE [facility] Oct 15, 2024 12:00 AM Laboratory - Chemi stry Order CREATININE + eGFR*NE BLOOD, RED OR GREEN OR GOLD SP ONCE [facility] Oct 15, 2024 12:00 AM Laboratory - Chemi stry Order AST*NE BLOOD, RED OR GREEN OR GOLD SP ONCE [facility] Oct 15, 2024 12:00 AM Laboratory - Chemi stry Order C-REACTIVE PROTEIN*NE BLOOD, RED OR GREEN OR GOLD SP [facility] Oct 15, 2024 12:00 AM Laboratory - Chemi stry Order SEDRATE*NE BLOOD, LAVENDER SP [facility] Lab Results: +/- 30 days of the encounter This section includes the Chemistry and Hematology Lab Results on record with NH for the patient. Radiology Reports and Pathology Reports are provided separately, in subsequent sections. Lab Results This section contains the Chemistry/Hematology Results that were resulted 30 days before or 30 daysafter the date of the Encounter. Date/Time Source Result Type Result - Unit Interpretation Reference Range Specimen Type Comment Sep 19, 2024 10:16 AM [facility] RHEUMATOID FACTOR (PB) SERUM Specimen Type: SERUM No comment entered. Ordering Provider: CATHY HARGROVE Report Released Date/Time: Sep 19, 2024 10:09 AM Reporting Lab: [place] [facility] [address] [place] [address] Performing Lab: [place] [facility] [address] [place] [address] RHEUMATOID FACTOR (PB) <15.0 [IU]/mL L 0-3 0 Sep 19, 2024 10:16 AM [facility] ESR,ISED-PB BLOOD Specimen Typ e: BLOOD No comment entered. Ordering Provider: KAT HARGROVE Report Released Date/Time: Sep 19, 2024 10:09 AM Reporting Lab: [place] [facility] [address] [place] [address] Performing Lab: [place] [facility] [address] [place] [address] ESR,ISED-PB 30 mm/h H 0-29 Sep 19, 2024 10:16 AM [facility] CBC BLOOD Specimen Type: BLOOD No comment entered. Ordering Provider: KAT HARGROVE Report Released Date/Time: Sep 19, 2024 10:09 AM Reporting Lab: [place] [facility] [address] [place] [address] Performing Lab: [place] [facility] [address] [place] [address] WBC 8.3 10*3/uL 3.6-11.2 RBC 4.95 10*6/uL 3.60-5.00 HGB 15.0 g/dL H 11.0-14.9 HCT 45.1 H 32.6-43.4 MCV 91.1 fL 80.0-100.0 MCH 30.3 pg 27.0-34.0 MCHC 33.3 g/dL 33.0-36.0 PLT 333 10*3/uL 150-400 MPV 10.4 fL 7.5-11.2 RDW 13.2 11.8-15.1 LYMPHOCYTES, AUTO % 23.4 MONOCYTES, AUTO % 7.3 NEUTROPHILS, AUTO % 61.8 EOSINOPHILS, AUTO % 6.2 BASOPHILS, AUTO % 1.1 LYMPHOCYTES, ABSOLUTE 1.93 10*3/uL 0.77- 4.50 MONOCYTES, ABSOLUTE 0.60 10*3/uL 0.19-0. 8 NEUTROPHILS, ABSOLUTE 5.10 10*3/uL 2.10- 8.00 EOSINOPHILS, ABSOLUTE 0.51 10*3/uL 0.00- 0.60 BASOPHILS, ABSOLUTE 0.09 10*3/uL 0.00-0. 20 IMMATURE GRANS, AUTO % 0.2 IMMATURE GRANS, AUTO ABS 0.02 10*3/uL 0. 00-0.05 Sep 19, 2024 10:16 AM [facility] HGA1C BLOOD Specimen Type: BLOOD No comment entered. Ordering Provider: KAT HARGROVE Report Released Date/Time: Sep 19, 2024 10:09 AM Reporting Lab: [place] [facility] [address] [place] [address] Performing Lab: [place] [facility] [address] [place] [address] HGA1C 5.7 4.0-6.0 Sep 19, 2024 10:16 AM [facility] COMPREHENSIVE METABOLIC PANEL PLASMA Specimen Type: PLASMA No comment entered. Ordering Provider: KAT HARGROVE Report Released Date/Time: Sep 19, 2024 10:09 AM Reporting Lab: [place] [facility] [address] [place] [address] Performing Lab: [place] [facility] [address] [place] [address] CREATININE 1.03 mg/dL 0.6-1.1 UREA NITROGEN 14 mg/dL 9-25 GLUCOSE 104 mg/dL H 72-99 SODIUM 140 meq/L 136-145 POTASSIUM 4.1 meq/L 3.5-5 CHLORIDE 105 meq/L 98-107 CARBON DIOXIDE 24 meq/L 22-31 CALCIUM 10.0 mg/dL 8.4-10.4 PROTEIN 7.5 g/dL 6-8.6 ALBUMIN 4.3 g/dL 3.4-5 TOTAL BILIRUBIN 0.2 mg/dL 0.2-1.2 ALKALINE PHOSPHATASE 109 U/L 40-150 AST/SGOT 16 U/L 5-34 ALT/SGPT 12 U/L 8-40 EGFR (CKD-EPI 2020) 63 Sep 19, 2024 10:16 AM [facility] CHOLE[facility] PANEL (PB) PLASMA Specimen Type: P LASMA No comment entered. Ordering Provider: KAT HARGROVE Report Released Date/Time: Sep 19, 2024 10:09 AM Reporting Lab: [place] [facility] [address] [place] [address] Performing Lab: [place] [facility] [address] [place] [address] CHOLESTEROL 222 mg/dL H 0-200 TRIGLYCERIDE 120 mg/dL 0-150 CALCULATED LDL 140.5 mg/dL HDL(New) 57.5 mg/dL H >40 HDL % OF TOTAL CHOLESTEROL (PB) 25.9 >25 Sep 19, 2024 10:16 AM [facility] TSH (MA-PB) SERUM Specimen Typ e: SERUM No comment entered. Ordering Provider: KAT HARGROVE Report Released Date/Time: Sep 19, 2024 10:09 AM Reporting Lab: [place] [facility] [address] [place] [address] Performing Lab: [place] [facility] [address] [place] [facility] TSH 2.264 u[IU]/mL 0.47-5 Sep 19, 2024 10:16 AM [facility] URINALYSIS (STL-PB) URINE Specimen Type: URIN E No comment entered. Ordering Provider: KAT HARGROVE Report Released Date/Time: Sep 19, 2024 10:09 AM Reporting Lab: [place] [facility] [address] [place] [facility] Performing Lab: [place] [facility] [address] [place] [facility] URINE COLOR Light Yellow Yellow U.BILIRUBIN NEGATIVE mg/dL Negative U.PH 6.5 5.0-8.0 APPEARANCE CLEAR Clear U.NITRITE NEGATIVE mg/dL Negative URN.GLUCOSE NORMAL mg/dL Negative URN.PROTEIN NEGATIVE mg/dL URN.UROBILINOGEN NORMAL mg/dL Normal URN.BLOOD NEGATIVE mg/dL Negative-Trace URN.KETONES NEGATIVE mg/dL Negative-Trac e URN.LEUK.EST. NEGATIVE Negative-Trace URN.SPECIFIC GRAVITY 1.017 1.005-1.029 Sep 19, 2024 10:16 AM [facility] VITAMIN D, 25-HYDROXY SERUM Specimen Type: SE RUM No comment entered. Ordering Provider: KAT HARGROVE Report Released Date/Time: Sep 19, 2024 10:09 AM Reporting Lab: [place] [facility] [address] [place] [facility] Performing Lab: [place] [facility] [address] [place] [address] VITAMIN D, 25-HYDROXY 29.7 ng/mL L 30-96 Vital Signs: All taken on the encounter date This section contains inpatient and outpatient Vital Signs collected on the date of the Encounter. Date/Time Temperature Pulse Blood Pressure Respiratory Rate SP02 Pain Height Weight Body Mass Index Source Sep 19, 2024 09:25 AM 98.4 77 134/88 18 99 0 63 163.6 29 [facility] Social History: Smoking Status (Most current) and Tobacco Use (All prior to encounter date) This section includes the most current, and the historical, smoking and tobacco- related health factors from the NH facility where the Encounter took place. Current Smoking Status This section includes the most current smoking, or tobacco-related health factor, from the NH facility where the Encounter took place. Date/Time Current Smoking Status Comment Facil ity Sep 19, 2024 09:01 AM NH-TOBACCO USE FORMER CIGARETTES [facility] Tobacco Use History This section includes a history of the smoking, or tobacco-related health factors, that were collected on or before the date of the Encounter. The data comes from the NH facility where the Encounter took place. Date/Time Smoking Status/Tobacco Use Comment F acility Sep 19, 2024 09:01 AM NH-TOBACCO USE FORMER CIGARETTES [facility] Radiology Reports: +/- 30 days of the encounter Radiology Reports For cases when an order for radiology services may have been completed prior to the date of the Encounter, the report list includes the Radiology Reports that were completed up to 30 days before dateof the Encounter. For cases when an order for radiology services may have been completed after the date of the Encounter, the report list also includes the Radiology Reports that were completed up to30 days after date of the Encounter. The data comes from all NH treatment facilities. Date/Time Radiology Report Provider Source Oct 03, 2024 08:00 AM FEE BASE OUTSIDE S CREENING MAMMOGRAM: CHAN MORRISON [id number] -[id number] F Exm Date: OCT 03, 2024@08:00 Req Phys: KAT HARGROVE Loc: PB-ALIZA PACT [facility] [facility] (Req Img Loc: PB-MAMMOGRAM Service: Unknown (Case [id number] COMPLETE) FEE BASE OUTSIDE SCREENING MAMMOG(JACOBY Detailed) CPT:47052 Reason for Study: Mammogram Clinical History: Report Status: Electronically Filed Date Reported: OCT 03, 2024 Report: see impression text Impression: Impression: Exam was performed at an outside facility. Images and report have not been reviewed or read by NH staff. To review report, you will need to log into [facility] and select the correct patient to see the canned in document. Consult dated:[id number] BIRADS:3 [facility] VERIFIED BY: / *ELECTRONICALLY FILED* [facility] [facility] Sep 19, 2024 10:10 AM KNEE,RIGHT 3 VIEWS : CHAN MORRISON [id number] -[id number] F Exm Date: SEP 19, 2024@10:10 Req Phys: KAT HARGROVE R Pat Loc: PB-ALIZA PACT [facility]EE[facility] [facility] (Req Img Loc: PB-XRAY HENNING Service: [place] [address] (Case [id number] COMPLETE) KNEE,RIGHT 3 VIEWS (RAD Detailed) CPT:05473 Proc Modifiers : RIGHT Reason for Study: right knee arthritis Clinical History: refer to ortho-history of RA Report Status: Verified Date Reported: SEP 19, 2024 Date Verified: SEP 19, 2024 Focuser E-Sig: Report: Right knee 3 views including AP weightbearing view. There is no fracture or dislocation. No bony destruction. Knee joint appears fairly well maintained. No significant degenerative changes. Impression: No significant degenerative changes Primary Interpreting Staff: VIRI MOHAN, RADIOLOGIST (Focuser, no e-sig) /VIRI Mendez [facility] Sep 19, 2024 10:10 AM CHEST X-RAY, 2 VIE WS: TAMIKO,CHAN FARIDA [id number] -[id number] F Exm Date: SEP 19, 2024@10:10 Req Phys: KAT HARGROVE R Pat Loc: PB-ALIZA PACT [facility] [address] [facility]ICE (Req Img Loc: PB-XRAY [place]ENNING Service: [place] [address] (Case [id number] COMPLETE) CHEST X-RAY, 2 VIEWS (RAD Detailed) CPT:76756 Reason for Study: screening Clinical History: Report Status: Verified Date Reported: SEP 19, 2024 Date Verified: SEP 19, 2024 Focuser E-Sig: Report: Chest 2 views. No infiltrates or effusions. Heart normal size. Impression: No acute cardiopulmonary process Primary Interpreting Staff: VIRI MOHAN, RADIOLOGIST (Focuser, no e-sig) /VIRI Mendez [facility] Encounter Notes: All associated encounter notes This section contains the clinical notes associated to the Encounter. Date/Time Encounter Note(s) Provider Source February 10, 2025 12:12 PM ADDENDUM: LOCAL TITLE: Addendum STANDARD TITLE: ADDENDUM DATE OF NOTE: FEBRUARY 10, 2025@12:12:34 ENTRY DATE: FEBRUARY 10, 2025@12:12:35 AUTHOR: MAYA CRUMP EXP COSIGNER: URGENCY: STATUS: COMPLETED came into clinic today to speak with PACT nurse regarding missed phone call. states that she has not scheduled follow up appointment just the initial appointment. She states [facility] wanted to send her to [place] but [place] would not schedule her until they recieved office notes from initial visit from [facility] or NH. Please contact for further questions. /néstor/ [facility] Signed: 02/10/2025 12:16 Receipt Acknowledged By: 02/18/2025 11:55 /néstor/ Chichi Luciano RN [facility], [facility] --- Original Document --- 02/07/25 NURSING NOTE PB: Tickler Reminder Please place tickler reminder for Dermatology consult for [facility] for follow up on Attempted to contact regarding tickler reminder to see if she has made dermatology follow up appt. /néstor/ Chichi Luciano RN [facility], [facility] Signed: 02/07/2025 14:09 MAYA CRUMP [facility] February 07, 2025 02:03 PM NURSING PROGRESS NOTE: LOCAL TITLE: NURSING NOTE PB STANDARD TITLE: NURSING PROGRESS NOTE DATE OF NOTE: FEBRUARY 07, 2025@14:03 ENTRY DATE: FEBRUARY 07, 2025@14:03:40 AUTHOR: CHICHI LUCIANO COSIGNER: URGENCY: STATUS: COMPLETED NURSING NOTE PB Has ADDENDA Tickler Reminder Please place tickler reminder for Dermatology consult for [facility] for follow up on Attempted to contact regarding tickler reminder to see if she has made dermatology follow up appt. /néstor/ Chichi Luciano RN [place] [facility]EL[facility], RADHA [facility] Signed: 02/07/2025 14:09 02/10/2025 ADDENDUM STATUS: COMPLETED came into clinic today to speak with PACT nurse regarding missed phone call. states that she has not scheduled follow up appointment just the initial appointment. She states [facility] wanted to send her to [place] but [place] would not schedule her until they recieved office notes from initial visit from [facility] or NH. Please contact for further questions. /néstor/ MAYA LUCIANOHENNING [facility] Signed: 02/10/2025 12:16 Receipt Acknowledged By: * AWAITING SIGNATURE * CHICHI LUCIANO JEANNIE RENEE [facility] Sep 19, 2024 10:10 AM PRIMARY CARE PROGRESS NOTE: LOCAL TITLE: PRIMARY CARE CLINIC PROGRESS NOTE PB STANDARD TITLE: PRIMARY CARE PROGRESS NOTE DATE OF NOTE: SEP 19, 2024@10:10 ENTRY DATE: SEP 19, 2024@10:10:32 AUTHOR: KAT HARGROVEIGNER: URGENCY: STATUS: COMPLETED PRIMARY CARE CLINIC PROGRESS NOTE PB Has ADDENDA PROVIDER ASSESSMENT DATE & TIME:Sep@10:10 CHIEF COMPLAINT: [facility] with [facility]. HISTORY OF PRESENT ILLNESS: Kannan is being seen to establish care with the NH and the [facility] PACT team. Kannan states she has depression most days. She is not actively suicidal. She has PTSD. She quit smoking in 2004. She is due for a colonoscopy and would like this locally in . Kannan is registered for the PACT Act and has a positive JENNIFER screen. She was in [place] in [phone]. She was around [place]. Kannan is also due for a mammogram. She would like this at [facility]. states she is not due for a pap for 2 years. [place] states she has been told she has COPD. Kannan would like a referral to chiro and acupuncture for her back pain. Kannan would like to be set up with Rheumatology here. She states her current Soldering Inspector will continue to fill her medication until she is established. needs a referral to Dermatology. [place] needs to see an opthamologist and would like to see Dr. Gutierrez. [place] would like to see Dr. Winn for her knee pain. Active problems/med list machine puller over: 1) Chronic Post-Traumatic Stress Disorder ([facility] [id number]) 2) Rheumatoid arthritis 3) Gastroesophageal reflux disease without esophagitis 4) Depression 5) Allergic Rhinitis ([facility] [id number]) 6) Thoracic back pain 7) Low back pain 8) Basal cell carcinoma of face 9) Insomnia 10) Carpal tunnel syndrome Active Outpatient Medications (including Supplies): No Medications Found REVIEW OF SYSTEMS: HEENT: No Headache. No blurry vision, vision loss, eye pain, red eyes, or foreign body. No runnynose, congestion, or nose bleed. No hearing loss, ringing in the ears, or vertigo. No sore throat or dental pain. RESPIRATORY: No cough, SOA, wheezing, or sputum production. CARDIOVASCULAR: No chest pain, palpitations, tachycardia, PND, or orthopnea. GI: No abdominal pain, nausea, vomiting, diarrhea, constipation, melena, or hematochezia. : No dysuria, hematuria, urinary frequency, weak stream, or post-void dribbling. MUSCULOSKELETAL:No muscle or joint pain. SKIN: No rash, lesions, or infection PSYCH: No Depression or Anxiety. Not suicidal. PHYSICAL ASSESSMENT: VITAL SIGNS Pulse: 77 (09/19/2024 09:25) Blood Pressure: 134/88 (09/19/2024 09:25) Respiratory Rate: 18 (09/19/2024 09:25) Temperature: 98.4 F [36.9 C] (09/19/2024 09:25) Weight: 163.6 lb [74.21 kg] (09/19/2024 09:25) Height: 63 in [160.0 cm] (09/19/2024 09:25) Pain: 0 (09/19/2024 09:25) HEENT:PERRL, EOMI, Fundi benign, TM's clear, Pharynx not red and without exudate, tonsils normal size. NECK: Supple, no lymhadenopathy, thyroid normal. CARDIAC: Regular rate and rhythm without murmur. No edema. RESPIRATORY: CTA, BEBS GI: Abdomen soft,with ABS, no HSM, no guarding or rebound. MUSCULOSKELETAL: Chronic joint pain with no acute change. FROM. Right knee crepitus with flexion/extension, patella stable. SKIN: [place] without rash or lesions. NEUROLOGICAL: The [place] is alert and oriented without distress. Affect appropriate. IMPRESSION: Rheumatoid Arthritis-chronic Depression-current Allergic Rhinitis-current PTSD-chronic Thoracic Back Pain-chronic Lumbar Back Pain-chronic Insomnia-chronic COPD-current, stable Right Knee Pain-current PLAN: Will refill medications. Labs today. Will order colonoscopy. Will consult chiro and acupuncture. Will consult for eye exam. Will consult for dermatology. Will consult orthopedics. Monthly self breast exam. Will consult for mammogram. RTC in one year or sooner if needed. Will consult Rheumatology. Patient is advised this primary care clinic has open access and he can make a same day appointment anytime a problem/concern arises. Patient further advised he can be seen on a walk-in basis as needed. Patient is provided clinic contact information. Medications reviewed and reconciled. Discussed diet and exercise as relevant to patient conditions. Treatment plan as noted above and the After Visit Summary was reviewed with [place]; opportunity provided to report concerns and ask question regarding aspects of care or treatment or services; concurrence reached and verbalized understanding. Please refer to addendum or follow up lab letter for plan of care/changes related to lab/test results not available at conclusion of appointment, if any. Discussed with patient that in the event of community imaging / testing being ordered in the future, once the imaging / testing has been completed, please notify PACT of within 1 week by a [facility] PACT member; this is due to intermittent lapses in notification of imaging completion within CPRS. All questions answered; agrees to plan of care. Follow up as listed above, annually, and as needed. Keep all completion at outside facility if not called with results appointments. Medications Reconciled. Time spent 30 minutes Avg Risk Colorectal Cancer Screen - L,N,P,PH: AVERAGE RISK colorectal cancer screening is due based on information available to this clinical reminder Screening is due now. Colonoscopy consult has been ordered. See orders tab for details. Mammogram Screening - L,N,P,PH,U: See orders tab for any orders that may have been entered. Toxic Exposure Screening Follow-Up - NS,P: Exposure Concern(s): 09/19/2024 Airborne Hazards/Open Burn Pit - Toxic Exposure Concern Follow-up Question(s): 09/19/2024 Benefits/Claims Questions - Toxic Exposure Concern Health/Medical Questions - Toxic Exposure Concern No Questions - Toxic Exposure Concern Registry Questions - Toxic Exposure Concern NH Healthcare Enrollment Questions - Toxic Exposure Concern /caregiver has no health or medical concerns related to their concern of environmental exposure. The following connections were provided to the /caregiver: Crisis Nurse/Organization (VSO) Zachariah Gonzales: /néstor/ LISA Hollingsworth- PARAMJIT Azar Signed: 09/22/2024 21:19 11/18/2024 ADDENDUM STATUS: COMPLETED Colonoscopy GAP Reminder - L,N,P,PH: Recommendations are needed in the clinical reminder system following the patient's most recent colorectal cancer screening/surveillance test (Colonoscopy, Sigmoidoscopy or CT Colonography) Prior/outside colonoscopy results: Polyps in sigmoid colon. Follow up recommended in 5 years Date: November 14, 2024 Colonoscopy reminder set 5 years from NOV 18, 2024. /néstor/ SERA Menchaca JJP [facility] Signed: 11/18/2024 14:31 KAT HARGROVE [place] PARAMJIT Sep 19, 2024 09:59 AM COMMUNICATION NOTE: LOCAL TITLE: SELF ALERT NOTE STANDARD TITLE: COMMUNICATION NOTE DATE OF NOTE: SEP 19, 2024@09:59 ENTRY DATE: SEP 19, 2024@09:59:40 AUTHOR: CHICHI LUCIANO COSIGNER: URGENCY: STATUS: COMPLETED Tickler/Reminder: remind me on: February 06, 2025@00:00 Tickler/Reminder Text: Please place tickler reminder for Dermatology consult for [facility] for follow up on /néstor/ SERA Menchaca Plainanyi YUSUF, [facility] Signed: 09/19/2024 10:00 Receipt Acknowledged By: 09/25/2024 17:54 /es/ Kat Hargrove [facility] CHICHI HAMMER HENNING GARRISON LUIS FELIPE Sep 19, 2024 09:43 AM GENERAL MEDICINE NOTE: LOCAL TITLE: General Note PB STANDARD TITLE: GENERAL MEDICINE NOTE DATE OF NOTE: SEP 19, 2024@09:43 ENTRY DATE: SEP 19, 2024@09:43:17 AUTHOR: KAT HARGROVE EXP COSIGNER: URGENCY: STATUS: COMPLETED Please place tickler reminder for Dermatology consult for [facility] for follow up on basal cell carcinoma on February 2025-needs appt in March. /néstor/ Kat Hargrove [facility] Signed: 09/19/2024 09:46 Receipt Acknowledged By: 09/19/2024 10:37 /es/ Chichi Luciano RN [facility], [facility] KAT HARGROVE HENNING GARRISON YUSUF Sep 19, 2024 09:27 AM PRIMARY CARE NURSING NOTE: LOCAL TITLE: PRIMARY CARE NURSING PROGRESS NOTE (TEXT) NURSING P STANDARD TITLE: PRIMARY CARE NURSING NOTE DATE OF NOTE: SEP 19, 2024@09:27 ENTRY DATE: SEP 19, 2024@09:27:40 AUTHOR: CHICHI LUCIANO COSIGNER: URGENCY: STATUS: COMPLETED New Patient CHAN MORRISON IS A 59 YEAR OLD FEMALE BEING SEEN IN CLINIC SEP 19, 2024. REASON FOR VISIT: Establishing care with the [facility]. Moved from [place]. Are you receiving care any where other than the NH? No HEALTH HISTORY: Patient reports current health hx as listed: Acid Reflux, Depression, PTSD, Low Back Issues RA SURGICAL HISTORY: Does patient report using home oxygen? No CURRENT ACTIVE MEDICATIONS FOR REVIEW: Allergies/ADRs (Tool #5) FACILITY ALLERGY/ADR -------- [facility] VACCINE [place] [facility] LATEX [facility] [facility] LATEX [place] [facility] LATEX [facility] [place] VACCINE Med. Reconciliation (Tool #1) INCLUDED IN THIS LIST: Alphabetical list of active outpatient prescriptions dispensed from this NH (local) and dispensed from another NH or [facility] facility (remote) as well as inpatient orders (local pending and active), local clinic medications, locally documented non-VA medications, and local prescriptions that have or been discontinued in the past 90 days. Non-VA Meds Last Documented On: Data not found NOTE The display of VA prescriptions dispensed from another NH or DoD facility (remote) is limited to active outpatient prescription entries matched to National Drug File at the originating site and may not include some items such as investigational drugs, compounds, etc. NOT INCLUDED IN THIS LIST: Medications self-entered by the patient into personal health records (i.e. [employer]) are NOT included in this list. Non-VA medications documented outside this NH, remote inpatient orders (regardless of status) and remote clinic medications are NOT included in this list. The patient and provider must always discuss medications the patient is taking, regardless of where the medication was dispensed or obtained. Remote ADALIMUMAB-BWWD 40MG/0.8ML AUTOINJECTOR INJECT 40MG (0.8ML) UNDER THE SKIN EVERY 14 DAYS Last Filled: 05/26/24 (Active at [facility]) Rx Expiration Date: 03/13/25 Supply: 84 Remote AMITRIPTYLINE HCL 50MG TAB TAKE ONE TABLET BY MOUTH AT BEDTIME FOR MOOD Last Filled: 10/18/24 (Active/Suspended at [facility]) Rx Expiration Date: 01/31/25 Days Supply: 90 Remote BUPROPION HCL 150MG 12HR TAB,SA TAKE ONE TABLET BY MOUTH EVERY 12 HOURS FOR MOOD Last Filled: 09/18/24 (Active at [facility]) Rx Expiration Date: 01/31/25 Days Supply: 90 Remote CALCIUM CITRATE 315MG/VITAMIN D 200UNT TAB TAKE 2 TABLETS BY MOUTH TWICE A DAY Last Filled: 10/06/24 (Active/Suspended at [facility]) Rx Expiration Date: 04/20/25 Days Supply: 90 Remote CLONIDINE HCL 0.1MG TAB TAKE ONE TABLET BY MOUTH AT BEDTIME NEEDED FOR NIGHTMARES FOR SYMPTOMS Last Filled: 09/18/24 (Active at [facility]) Rx Expiration Date: 01/31/25 Days Supply: 90 Remote DICLOFENAC NA 1% GEL,TOP APPLY 2 GRAM TOPICALLY FOUR TIMES A DAY (USE DOSING CARD TO MEASURE DOSE) Last Filled: 02/26/24 (Active at [facility]) Rx Expiration Date: 02/26/25 Days Supply: 90 Remote DOCUSATE NA 50MG/SENNOSIDES 8.6MG TAB TAKE 2 TABLETS BY MOUTH DAILY FOR CONSTIPATION Last Filled: 08/30/24 (Active at [facility]) Rx Expiration Date: 08/30/25 Days Supply: 50 Remote FOLIC ACID 1MG TAB TAKE FOUR TABLETS BY MOUTH EVERY DAY Last Filled: 10/19/24 (Active/Suspended at [facility]) Rx Expiration Date: 10/31/24 Days Supply: 90 Remote GABAPENTIN 300MG CAP TAKE THREE CAPSULES BY MOUTH EVERY DAY FOR NIGHT SWEATS FOR NIGHT SWEATS Last Filled: 09/18/24 (Active at [facility]) Rx Expiration Date: 01/31/25 Days Supply: 90 Remote HYDROXYCHLOROQUINE SO4 300MG TAB TAKE ONE TABLET BY MOUTH EVERY DAY FOR RHEUMATOID ARTHRITIS Last Filled: 08/30/24 (Active at [facility]) Rx Expiration Date: 03/13/25 Days Supply: 90 Remote LACTOBACILLUS ACIDOPHILUS TAB,CHEWABLE CHEW 2 TABLETS BY MOUTH EVERY DAY FOR DIETARY SUPPLEMENT FOR DIGESTION Last Filled: 09/18/24 (Active at [facility]) Rx Expiration Date: 01/31/25 Days Supply: 90 Remote LORATADINE 10MG TAB TAKE ONE TABLET BY MOUTH EVERY DAY FOR ALLERGIES (SAME CLARITIN) Last Filled: 09/18/24 (Active at [facility]) Rx Expiration Date: 01/31/25 Days Supply: 90 Remote METHOTREXATE NA 25MG/ML INJ INJECT 15 MG (0.6 ML) UNDER THE SKIN EVERY 7 DAYS Last Filled: 05/26/24 (Active at [facility]) Rx Expiration Date: 03/13/25 Days Supply: 84 Remote PANTOPRAZOLE NA 40MG TAB,EC TAKE ONE TABLET BY MOUTH EVERY DAY FOR GASTROESOPHAGEAL REFLUX DISEASE Last Filled: 09/18/24 (Active at [facility]) Rx Expiration Date: 01/31/25 Days Supply: 90 SUPPLIES Remote TUBERCULIN SYRINGE 1ML 27G 1/2IN USE SYRINGE UNDER THE SKIN EVERY 7 DAYS Last Filled: 06/20/24 (Active at [facility]) Rx Expiration Date: 10/31/24 Days Supply: 84 PHARMACY TERMS AND POSSIBLE PATIENT ACTIONS INPT = NH inpatient order IV = NH intravenous medication OUTPT = NH outpatient prescription PHARMACY POSSIBLE PATIENT TERMS EXPLANATION ACTIONS -------- --- ACTIVE A prescription that can be If you have refills, filled at the local VA pharmacy. you may request a refill of this prescription from your VA pharmacy. CLINIC A medication you received during If you have questions a visit to a VA clinic or about this medication emergency department. contact your VA healthcare team. DISCONTINUED A prescription your provider has Contact your VA stopped. It is no longer healthcare team if you available to be sent to you or need more of this picked up at the NH pharmacy medication. window. A prescription which is too old Contact your VA to fill. This does not refer to healthcare team if you the expiration date of the need more of this medication in the container. medication. NON-VA A medication that came from If this medication someplace other than a VA information is pharmacy. This may be a incorrect or out of prescription from either the VA date, please tell your or non VA providers that was VA healthcare team. filled outside the VA. Or, it may be an zgof-oto-buglczl (OTC), herbal, dietary supplements or sample medication. ON HOLD An active prescription that will Contact your VA not be filled until pharmacy pharmacy when you need resolves the issue. more of this medication. PARKED An active prescription that will Contact your VA not be filled until the patient pharmacy when you need requests it. this medication. PENDING This prescription order has been If you have been sent to the pharmacy for review instructed to start and is not ready yet. this medication now, contact your VA pharmacy. SUSPENDED An active prescription that is Contact your NH not scheduled to be filled yet. pharmacy if you need You should receive it before this medication now. you run out. ======== Patient reports taking medications as See Provier's note. Medication reviewed from [facility] IS PATIENT TAKING ANY OVER THE COUNTER MEDICATIONS, SUCH VITAMINS OR HERBAL SUPPLEMENTS, INCLUDING ANY MEDICATIONS PRESCRIBED BY ANOTHER PHYSICIAN? No ALLERGIES/ADVERSE REACTIONS: LATEX GLOVE Does patient have any new allergies to report since last visit? NO VITALS: TEMPERATURE: 98.4 F [36.9 C] (09/19/2024:) BP: 134/88 (09/19/2024:) RESP: 18 (09/19/2024:) PULSE: 77 (09/19/2024:) HT: 63 in [160.0 cm] (09/19/2024) WT: 163.6 lb [74.21 kg] (09/19/2024) BMI: 29.0 PAIN ASSESSMENT: (Most Recent Pain Score in Vitals Package: 0 (09/19/2024:) ) The patient indicated that they and their close contacts have not traveled outside of the [place] in the past 21 days. The patient reports the following symptoms: No symptoms present The patient is not immunocompromised. The patient does not report having a history of Multi Drug Resistant Organism (MDRO) within the last five years. The patient does not report having been exposed to measles, chickenpox, or zoster in last 30 days. Patient reports no pain at this visit. Pain Score = 0. STRESS: Thank you for your service. Now let us serve you. At the [facility], we strive to provide you with exceptional health care that improves your health and well-being. Are you feeling sad, empty, or depressed? No Do you need to talk about things in your life that worry you or cause you stress? No Do you need to talk about personal problems, family problems, alcohol use, drug use, or mental or emotional illness? No SUICIDE SCREENING: The patient was asked, Over the past two weeks, how often have you been bothered by thoughts that you would be better off or of hurting yourself in some way? Not At All SPIRITUAL ASSESSMENT: Are there adventist practices or spiritual concerns you want the dairy processing supervisor, your physician, and other health care team members to immediately know about? No Patient advised to call the clinic for any concerns, questions, or symptoms. Patient and/or caregiver verbalized understanding of plan of care. Suicide Screen - V: C-SSRS Screening [place] Suicide Severity Rating Scale (C-SSRS) screener 1. Over the past month, have you wished you were or wished you could go to sleep and not wake up? No 2. Over the past month, have you had any actual thoughts of killing yourself? No 3. Over the past month, have you been thinking about how you might do this? Response not required due to responses to other questions. 4. Over the past month, have you had these thoughts and had some intention of acting on them? Response not required due to responses to other questions. 5. Over the past month, have you started to work out or worked out the details of how to kill yourself? Response not required due to responses to other questions. 6. If yes, at any time in the past month did you intend to carry out this plan? Response not required due to responses to other questions. 7. In your lifetime, have you ever done anything, started to do anything, or prepared to do anything to end your life (for example, collected pills, obtained a gun, gave away valuables, went to the roof but didn't jump)? No 8. If YES, was this within the past 3 months? Response not required due to responses to other questions. 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 /caregiver believes the [place] was exposed to the following while serving in the Armed Forces: Airborne Hazards and Open Burn Pit: [place]/caregiver was made aware of educational resources that includes information on the Registry Program, presumptive conditions and how to file a claim. Printed information was offered and provided if desired. Health/Medical Questions All patients who report a health/medical concern will receive follow-up from a clinician. For urgent or emergent concerns, they were advised to follow local facility policy. Benefits/Claims Questions [place]/caregiver was informed of local point of contact. [place] Health Care Enrollment and Eligibility Questions /caregiver was informed of local point of contact. Registry Questions /caregiver was informed of local point of contact. No questions at this time [place]/caregiver was informed of local points of contact. Contact information for local resources: [facility] Registry Exam Program: [phone] Eligibility: [phone] [id number] Toxic Exposure Screening Follow-Up reminder is needed. Name of person notified: Esequiel Hargrove APRN [place] is already signed up for PA[employer] Act Depression Screening - V: Perform PHQ-2 A PHQ-2 screen was performed. The score was 0 which is a negative screen for depression. Over the past two weeks, how often have you been bothered by the following problems? 1. Little interest or pleasure in doing things Not at all 2. Feeling down, depressed, or hopeless Not at all Tobacco Use Screening - AT,DE,L,M,N,P,PH,PS,RT,S,U: The patient is a former cigarette smoker. The patient has never used other types of tobacco. HX of smoking for 18 years. Has not smoked in 20 years Screen for Embedded Fragments - L,N,P,S,U: SCREEN FOR EMBEDDED FRAGMENTS The patient reports no embedded fragments. Alcohol Use Screen (AUDIT-C) - V: Alcohol Screen: SCREEN FOR ALCOHOL (AUDIT-C) An alcohol screening test (AUDIT-C) was negative (score=0). 1. How often did you have a drink containing alcohol in the past year? Consider a drink to be a 12 ounce can or bottle of regular beer, 8 ounces of malt liquor, a 5 ounce glass of table wine, or a 1.5 ounce shot of liquor (like scotch, gin, or vodka). Never 2. How many drinks containing alcohol did you have on a typical day when you were drinking in the past year? Response not required due to responses to other questions. 3. How often did you have 4 or more drinks on one occasion in the past year? Response not required due to responses to other questions. PTSD Screening - V: PC-PTSD-5 A PTSD screening test (PC-PTSD-5) was positive (score=4). IN THE PAST MONTH, have you ever had any experience that was so frightening, horrible or traumatic. For example: A serious accident or fire a physical or sexual assault or abuse An earthquake or flood A war Seeing someone be killed or seriously injured Having a loved one through homicide or suicide 1. Have you ever experienced this kind of event? YES 2. Had nightmares about the event(s) or thought about the event(s) when you did not want to? YES 3. Tried hard not to think about the event(s) or went out of your way to avoid situations that reminded you of the event(s)? YES 4. Been constantly on guard, watchful, or easily startled? YES 5. [place] numb or detached from people, activities, or your surroundings? YES 6. [place] guilty or unable to stop blaming yourself or others for the event(s) or any problems the event(s) may have caused? NO Licensed Independent Provider notified of positive screen and need for follow-up. Name of provider notified: Kat Hargrove APRN Influenza Immunization - L,N,P,PH,U: Deferral / Refusal The patient declines to receive the recommended dose of seasonal influenza vaccine. Immunization: INFLUENZA, UNSPECIFIED FORMULATION Refusal Reason: PATIENT DECISION Patient refuses all immunization(s) in the FLU group Date Documented: 09/19/24 09:35 Advanced Directive Screen/Photography Instructor: ADVANCE DIRECTIVE SCREENING: I asked if the patient has an advance directive, and determined that: Patient does not have an Advance Directive. Patient was given form to update and return when completed. ADVANCE DIRECTIVE NOTIFICATION I provided the patient with written notification about advance directives. Level of understanding: Good Homelessness/Food Insecurity Screen - DI,L,N,P,PH,PS,S,U: In the past 2 months, have you been living in stable housing that you own, rent, or stay in as part of a household? Yes - Living in stable housing. Are you worried or concerned that in the next 2 months you may NOT have stable housing that you own, rent, or stay in as part of a household? No - Not worried about housing near future The [place] reports the following: Within the past 12 months, you worried whether your food would run out before you got money to buy more. Never true Within the past 12 months, the food you bought just didn't last and you didn't have money to get more. Never true Tdap Immunization - L,N,P,PH,U: The patient declines to receive the recommended dose of Tdap vaccine. Immunization: TDAP Refusal Reason: PATIENT DECISION Patient refuses all immunization(s) in the TDAP group Date Documented: 09/19/24 09:37 Weight Control/Nutrition Counseling: * The patient received the following counseling at this encounter: Patient was encouraged to restrict fat, especially saturated fats, in a normal diet. Benefit of a diet high in fiber was discussed. Patient was advised to include 5 or more servings of fruit and vegetables and six or more servings of grains as a well balanced diet. /néstor/ Chichi Luciano RN [place] CBLUIS FELIPE, JErinP [facility] Signed: 09/19/2024 09:38 CHICHI LUCIANO [place]
--- OUTSIDE RECORDS SUMMARY | 2024-10-14 09:00 | XMS_ITS | Encounter Summary ---
Author Name [facility] [facility] [place] [facility] [place] [facility] [place] Address [address] [place] [address] Care Team Providers Care Manager Of Hospital Name Role Phone KAT HARGROVE Primary Care [...] 4 RETIR EE Feb 04, 2007 104 [id number] [phone] ALBERT,A NNETTE PATIENT BCBS FEP PREFERRED PROVIDER ORGANIZAT ION (PPO) [id number] Oct 09, [phone] [id number] ALBERT,A NNETTE PATIENT [place] FEP PRESCRIPT ION [id number] Oct 09, 2007 [id number] ALBERT,See NNETTE PATIENT CAREMARK FEP RX [id number] PRESCRIPT ION [id number] 500 Oct 09, 2006 [id number] See PRICE PATIENT Selected Encounter This section includes the information on record at [place] for the Encounter. Date/Time Encounter Type Encounter Description Reason Provider Source Oct 14, 2024 02:00 PM OFFICE O/P EST MOD 30 MIN RHEUMATOLOGY/ARTH RITIS ICD-10-CM M06.9 Rheumatoid arthritis, unspecified LIVANARMANDO C IHAri Encounter Template Text not used by [place] Assessments - Encounter Diagnoses This section includes the primary and secondary diagnoses documented for the Encounter. Date/Time Primary/Secondary Diagnosis Diagnosis Name Provider Source Oct 14, 2024 03:14 PM PRIMARY Rheumatoid arthritis, unspecified FRIDAAMY LAWSONOE G [facility] Oct 14, 2024 03:14 PM SECONDARY Encounter for screening for other musculoskeletal disorder AMY GALICIAOE rEik [facility] Oct 14, 2024 03:14 PM SECONDARY Other residential (current) drug therapy FRIDAAMYDELMER Erik [facility] Plan of Treatment: Future Appointments (+ 6 months) and Future Tests (+/- 45 days) The Plan of Treatment section includes future care activities for the patient [facility] [place] [facility] This section includes future appointments and future orders which are active, pending or scheduled. Future Appointments This section includes appointments that were scheduled to occur 6 months from the date of the Encounter, up to a maximum of 20 appointments. The data comes from all [place] treatment facilities. Appointment Date/Time Appointment Type Appointme nt Facility Name Oct 24, 2024 09:30 AM AMBULATORY - MEDICINE [place] [facility] Oct 30, 2024 08:30 AM [facility] [place] [facility] Nov 05, 2024 09:30 AM [facility]ATORY - [place]IC[place] [facility] Nov 06, 2024 08:00 AM AMBULATORY - [place]ICINE [place] [facility] Nov 06, 2024 02:10 PM AMBULATORY - MEDICINE [place] [facility] Dec 05, 2024 09:11 AM AMBULATORY - MEDICINE [place] [facility] Dec 31, 2024 09:00 AM AMBULATORY - MEDICINE [place] [facility] Feb 05, 2025 10:20 AM AMBULATORY - MEDICINE [place] [facility] Mar 20, 2025 08:30 AM [facility]INE [facility] Active, Pending, and Scheduled Orders This section includes a listing of several types of active, pending, and scheduled orders, including clinic medications orders, diagnostic test orders, procedure orders and consult orders; where the start date of the order is 45 days before the date of the Encounter or 45 days after the date of theEncounter. The data comes from all [place] treatment facilities. Test Date/Time Test Type Test Details Facility Name Oct 15, 2024 12:00 AM Laboratory - Chemi stry Order ALT*NE BLOOD, RED OR GREEN OR GOLD SP ONCE [facility] Oct 15, 2024 12:00 AM Laboratory - Chemi stry Order CBC (NO DIFF)*NE BLOOD, LAVENDER SP ONCE [facility] Oct 15, 2024 12:00 AM Laboratory - Chemi stry Order ALBUMIN*NE BLOOD, RED OR GREEN OR GOLD SP ONCE [facility] Oct 15, 2024 12:00 AM Laboratory - Chemi stry Order AST*NE BLOOD, RED OR GREEN OR GOLD SP ONCE [facility] Oct 15, 2024 12:00 AM Laboratory - Chemi stry Order CREATININE + eGFR*NE BLOOD, RED OR GREEN OR GOLD SP ONCE [facility] Oct 15, 2024 12:00 AM Laboratory - Chemi stry Order SEDRATE*NE BLOOD, LAVENDER SP [facility] Oct 15, 2024 12:00 AM Laboratory - Chemi stry Order C-REACTIVE PROTEIN*NE BLOOD, RED OR GREEN OR GOLD SP [facility] Lab Results: +/- 30 days of the encounter This section includes the Chemistry and Hematology Lab Results on record with [place] for the patient. Radiology Reports and Pathology Reports are provided separately, in subsequent sections. Lab Results This section contains the Chemistry/Hematology Results that were resulted 30 days before or 30 daysafter the date of the Encounter. Date/Time Source Result Type Result - Unit Interpretation Reference Range Specimen Type Comment Sep 19, 2024 10:16 AM [facility] RHEUMATOID FACTOR (PB) SERUM Specimen Type: SERUM No comment entered. Ordering Provider: CATHY HARGROVE Report Released Date/Time: Sep 19, 2024 10:09 AM Reporting Lab: [place] [facility] [address] [facility] [place] [address] Performing Lab: [place] [facility] [address] [place] [facility] RHEUMATOID FACTOR (PB) <15.0 [IU]/mL L 0-3 0 Sep 19, 2024 10:16 AM [facility] ESR,ISED-PB BLOOD Specimen Typ e: BLOOD No comment entered. Ordering Provider: KAT HARGROVE Report Released Date/Time: Sep 19, 2024 10:09 AM Reporting Lab: [place] [facility] [address] [place] [address] Performing Lab: [place] [facility] [address] [place] [facility] ESR,ISED-PB 30 mm/h H 0-29 Sep 19, 2024 10:16 AM [facility] BLOOD Specimen Type: BLOOD No comment entered. Ordering Provider: KAT HARGROVE Report Released Date/Time: Sep 19, 2024 10:09 AM Reporting Lab: [place] [facility] [address] [place] [address] Performing Lab: [place] [facility] [address] [place] [facility] WBC 8.3 10*3/uL 3.6-11.2 RBC 4.95 10*6/uL [...] 0. 00-0.05 Sep 19, 2024 10:16 AM [facility] HGA1C BLOOD Specimen Type: BLOOD No comment entered. Ordering Provider: KAT HARGROVE Report Released Date/Time: Sep 19, 2024 10:09 AM Reporting Lab: [place] [facility] [address] [place] [address] Performing Lab: [place] [facility] [address] [place] [address] HGA1C 5.7 4.0-6.0 Sep 19, 2024 10:16 AM [facility] COMPREHENSIVE METABOLIC PANEL PLASMA Specimen Type: PLASMA No comment entered. Ordering Provider: KAT HARGROVE Report Released Date/Time: Sep 19, 2024 10:09 AM Reporting Lab: [place] [facility] [address] [place] [address] Performing Lab: [place] [facility] [address] [place] [address] CREATININE 1.03 mg/dL 0.6-1.1 UREA NITROGEN 14 [...] 2020) 63 Sep 19, 2024 10:16 AM [facility] CHOLESTEROL PANEL (PB) PLASMA Specimen Type: P LASMA No comment entered. Ordering Provider: KAT HARGROVE Report Released Date/Time: Sep 19, 2024 10:09 AM Reporting Lab: [place] [facility] [address] [place] [id number] Performing Lab: [place] [facility] [address] [place] [address] CHOLESTEROL 222 mg/dL H 0-200 TRIGLYCERIDE 120 mg/dL 0-150 CALCULATED LDL 140.5 mg/dL HDL(New) 57.5 mg/dL H >40 HDL % OF TOTAL CHOLESTEROL (PB) 25.9 >25 Sep 19, 2024 10:16 AM [facility] TSH (MA-PB) SERUM Specimen Typ e: SERUM No comment entered. Ordering Provider: KAT HARGROVE Report Released Date/Time: Sep 19, 2024 10:09 AM Reporting Lab: [place] [facility] [address] [place] [address] Performing Lab: [place] [facility] [address] [place] [address] TSH 2.264 u[IU]/mL 0.47-5 Sep 19, 2024 10:16 AM [facility] URINALYSIS (STL-PB) URINE Specimen Type: URIN E No comment entered. Ordering Provider: KAT HARGROVE Report Released Date/Time: Sep 19, 2024 10:09 AM Reporting Lab: [place] [facility] [address] [place] [address] Performing Lab: [place] [facility] [address] [place] [address] URINE COLOR Light Yellow Yellow U.BILIRUBIN NEGATIVE mg/dL Negative U.PH 6.5 5.0-8.0 APPEARANCE CLEAR Clear U.NITRITE NEGATIVE mg/dL Negative URN.GLUCOSE NORMAL mg/dL Negative URN.PROTEIN NEGATIVE mg/dL URN.UROBILINOGEN NORMAL mg/dL Normal URN.BLOOD NEGATIVE mg/dL Negative-Trace URN.KETONES NEGATIVE mg/dL Negative-Trac e URN.LEUK.EST. NEGATIVE Negative-Trace URN.SPECIFIC GRAVITY 1.017 1.005-1.029 Sep 19, 2024 10:16 AM [facility] VITAMIN D, 25-HYDROXY SERUM Specimen Type: SE RUM No comment entered. Ordering Provider: KAT HARGROVE Report Released Date/Time: Sep 19, 2024 10:09 AM Reporting Lab: [place] [facility] [address] [place] [address] Performing Lab: [place] [facility] [address] [place] [address] VITAMIN D, 25-HYDROXY 29.7 ng/mL L 30-96 Social History: Smoking Status (Most current) and Tobacco Use (All prior to encounter date) This section includes the most current, and the historical, smoking and tobacco- related health factors from the [place] facility where the Encounter took place. Current Smoking Status This section includes the most current smoking, or tobacco-related health factor, from the [place] facility where the Encounter took place. Date/Time Current Smoking Status Comment Facil ity February 14, 2023 08:15 AM [place]-TOBACCO FORMER USER [facility] Tobacco Use History This section includes a history of the smoking, or tobacco-related health factors, that were collected on or before the date of the Encounter. The data comes from the [place] facility where the Encounter took place. Date/Time Smoking Status/Tobacco Use Comment F acility February 14, 2023 08:15 AM [place]-TOBACCO QUIT 15 YRS OR MORE [facility] Radiology Reports: +/- 30 days of the [...] the Encounter. The data comes from all [place] treatment facilities. Date/Time Radiology Report Provider Source Oct 03, 2024 08:00 AM FEE BASE OUTSIDE S CREENING MAMMOGRAM: MARY JANE ZIMMERMAN [id number] -[id number] F Exm Date: OCT 03, 2024@08:00 Req Phys: KAT HARGROVE Loc: PB-ALIZA PACT KEEGAN LOPEZ (Req Img Loc: PB-MAMMOGRAM Service: Unknown (Case [id number] COMPLETE) FEE BASE OUTSIDE SCREENING MAMMOG(JACOBY Detailed) CPT:02207 Reason for Study: Mammogram Clinical History: Report Status: Electronically Filed Date Reported: OCT 03, 2024 Report: see impression text Impression: Impression: Exam was performed at an outside facility. Images and report have not been reviewed or read by [place] staff. To review report, you will need to log into [facility] and select the correct patient to see the canned in document. Consult dated:[id number] BIRADS:3 [facility] VERIFIED BY: / *ELECTRONICALLY FILED* [place] [facility] Sep 19, 2024 10:10 AM KNEE,RIGHT 3 VIEWS : MARY JANE ZIMMERMAN [id number] -[id number] F Exm Date: SEP 19, 2024@10:10 Req Phys: KAT HARGROVE Loc: [facility] (Req Img Loc: PB-XRAY [facility] Service: [place] [address] (Case [id number] COMPLETE) KNEE,RIGHT 3 VIEWS (RAD Detailed) CPT:74431 Proc Modifiers : RIGHT Reason for Study: right knee arthritis Clinical History: refer to ortho-history of RA Report Status: Verified Date Reported: SEP 19, 2024 Date Verified: SEP 19, 2024 Dimensional Engineer E-Sig: Report: Right knee 3 views including AP weightbearing view. There is no fracture or dislocation. No bony destruction. Knee joint appears fairly well maintained. No significant degenerative changes. Impression: No significant degenerative changes Primary Interpreting Staff: VIRI MOHAN, RADIOLOGIST (Dimensional Engineer, no e-sig) /VIRI Mendez [facility] Sep 19, 2024 10:10 AM CHEST X-RAY, 2 VIE WS: MARY JANE ZIMMERMAN [id number] -[id number] F Exm Date: SEP 19, 2024@10:10 Req Phys: KAT HARGROVE Pat Loc: PB-ALIZA PACT [facility] DEVICE SALES CONSULTANT (Req Img Loc: PB-XRAY [facility] Service: [place] [address] (Case [id number] COMPLETE) CHEST X-RAY, 2 VIEWS (RAD Detailed) CPT:27951 Reason for Study: screening Clinical History: Report Status: Verified Date Reported: SEP 19, 2024 Date Verified: SEP 19, 2024 Dimensional Engineer E-Sig: Report: Chest 2 views. No infiltrates or effusions. Heart normal size. Impression: No acute cardiopulmonary process Primary Interpreting Staff: VIRI MOHAN, RADIOLOGIST (Dimensional Engineer, no e-sig) /VIRI Mendez [facility] Encounter Notes: All associated encounter notes This section contains the clinical notes associated to the Encounter. Date/Time Encounter Note(s) Provider Source Oct 14, 2024 02:20 PM RHEUMATOLOGY OUTPATIENT NOTE: LOCAL TITLE: RHEUMATOLOGY CLINIC NOTE STANDARD TITLE: RHEUMATOLOGY OUTPATIENT NOTE DATE OF NOTE: OCT 14, 2024@14:20 ENTRY DATE: OCT 14, 2024@14:20:40 AUTHOR: DELMER GALICIA EXP COSIGNER: ARMANDO AMANDA [...] to 08/2022) lost efficacy Current tx: MTX 17.5 mg sc weekly, Humira 40 mg q14d. folic acid 4 mg daily. HCQ 300mg daily 2. Keratoconjunctivitis sicca 3. Hyperlipidemia 4. Irritable [...] Status 1) ADALIMUMAB-BWWD 40MG/0.8ML AUTOINJECTOR INJECT 40MG (0.8ML) ACTIVE UNDER THE SKIN EVERY 14 DAYS 2) AMITRIPTYLINE HCL 50MG TAB TAKE ONE TABLET BY MOUTH AT ACTIVE BEDTIME Indication: FOR MOOD 3) BUPROPION HCL 150MG 12HR SA TAB TAKE ONE TABLET BY MOUTH ACTIVE EVERY 12 HOURS Indication: FOR MOOD 4) CALCIUM CITRATE 315MG/VIT D 200 UNT TAB TAKE 2 TABLETS BY ACTIVE MOUTH TWICE A DAY Indication: FOR DIETARY SUPPLEMENT 5) CLONIDINE HCL 0.1MG TAB TAKE ONE TABLET BY MOUTH AT BEDTIME ACTIVE NEEDED FOR SYMPTOMS Indication: FOR NIGHTMARES 6) DICLOFENAC NA 1% TOP GEL APPLY 2 GRAM TOPICALLY FOUR TIMES A ACTIVE DAY (USE DOSING CARD TO MEASURE DOSE) Indication: OSTEOARTHRITIS 7) DOCUSATE NA 50MG/SENNOSIDES 8.6MG TAB TAKE 2 TABLETS BY ACTIVE MOUTH DAILY Indication: FOR CONSTIPATION 8) GABAPENTIN 300MG CAP TAKE THREE CAPSULES BY MOUTH EVERY DAY ACTIVE Indication: FOR NIGHT SWEATS 9) HYDROXYCHLOROQUINE SULFATE 300MG TAB TAKE ONE TABLET BY ACTIVE MOUTH EVERY DAY Indication: FOR RHEUMATOID ARTHRITIS 10) LACTOBACILLUS ACIDOPHILUS CHEW TAB CHEW 2 TABLETS BY MOUTH ACTIVE EVERY DAY FOR DIGESTION Indication: FOR DIETARY SUPPLEMENT 11) LORATADINE 10MG TAB TAKE ONE TABLET BY MOUTH EVERY DAY ACTIVE (SAME CLARITIN) Indication: FOR ALLERGIES 12) METHOTREXATE NA 25MG/ML INJ INJECT 15 MG (0.6 ML) UNDER THE ACTIVE SKIN EVERY 7 DAYS Indication: RHEUMATOID ARTHRITIS 13) PANTOPRAZOLE NA 40MG EC TAB TAKE ONE TABLET BY MOUTH EVERY ACTIVE DAY Indication: FOR GASTROESOPHAGEAL REFLUX DISEASE Active Non-VA Medications Status 1) Non-VA ZZFISH OIL 1000MG (500MG DHA/EPA) CAP 1000MG BY MOUTH ACTIVE EVERY DAY 2) Non-VA ZZTUMERIC CAP/TAB 1 CAP/TAB BY MOUTH EVERY DAY ACTIVE 15 Total Medications INTERVAL HISTORY: Ms. Zimmerman was seen today via C video visit for follow up of her RA. At her last visit her MTX was increased to 17.5mg weekly subq given some increased stiffness in her fingers, and she was continued on humira q14 days, and hydroxychloroquine 300mg daily (she has 300mg tabs and prefers to take one of these to alternating 200mg/400mg every other day). Today, she reports that she has overall been doing well since her last video visit with us. 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 She has been getting [place] with there at the [place] and [place] have a new [facility] [place]. Unfortunately they do not have any rheumatology care there through the [place] and she would have to drive several hours to see a metallurgist helper, so she would like to continue to follow with us. She reports that she has had a bit more stiffness in the cold winter weather in her hands, but does feel that going up on the MTX has helped and does feel that her RA is doing well currently, she would like to continue on her same regimen. she has not noted any swelling in her joints. She is having about 30 minutes of morning stiffness or less. No medication side effects. She did establish with ophthalmology today and had HCQ eye exam with no toxicity noted. She had labs with her PCP in 09/19/24 which included CBC and CMP which were unremarkable. AM Stiffness: 30 minutes REVIEW OF SYSTEMS: Vision changes: none Oral Ulcers: none Rash: none Shortness of breath: none Chest pain: none Abdominal pain: none Nausea/Vomiting: none Numbness/Tingling: none Weakness limited to one side of the body: none Fever: none Signs of infection: none Other ROS per HPI PHYSICAL EXAMINATION: Measurement DT TEMP PULSE RESP BP HT WT F(C) IN(CM) LB(KG)[BMI] ---- ----- ---- -- ------ 04/24/2024 08:03 97.6(36.4) 83 18 121/77 Measurement DT CVP POx CG CMH20(MMHG) (L/MIN)(%) IN(CM) ------ 04/24/2024 08:03 97 Measurement DT Pain ---- 04/24/2024 08:03 0 Weight: UNKNOWN Exam limited by virtual video visit today General: Alert, NAD Lungs: breathing appears non labored over video visit Joints: hands do not appear to have swelling over video LABS/XRAYS: wbc 5.6 K/uL (07/15/2024 14:16) hgb 14.1 g/dL (07/15/2024 14:16) plt 254 K/uL (07/15/2024 14:16) mcv 93.6 fL (07/15/2024 14:16) rdw 13.4 % (07/15/2024 14:16) ast 29 IU/L (07/15/2024 14:16) alt 19 IU/L (01/30/2024 07:14) alb 4.6 g/dL (07/15/2024 14:16) Cr 1.0 mg/dL (07/15/2024 14:16) esr 12 mm/hr (07/15/2024 14:16) crp <0.5 mg/dL (07/15/2024 14:16) C3 0 C4 0 uric acid No data available for: URIC ACID*NE UA No data available Urine Micro ____ Urine spot Pro/CR SLT - Lab Tests Selected No data available for: CREATININE RANDOM URINE(..04/26)*ia PROTEIN RANDOM URINE(..04/26)*ia LAB TESTS SELECTED Collection DT Specimen Test Name Result Units Ref Range 02/06/2018 09:19 BLOOD RHEUMATOID FACTOR <9 IU/ML 0 - 12 LAB CUMULATIVE SELECTED CBC1 No data available for: ANTI-CCP LAB CUMULATIVE SELECTED 1 No data available for: ANCA SCREEN*ne,ci LAB CUMULATIVE SELECTED 3 No data available for: PR3 (PROTEINASE-3) ANTIBODIES LAB CUMULATIVE SELECTED 4 No data available for: RYAN SCREEN*ne LAB CUMULATIVE SELECTED 5 No data available for: ANTI-CCP ryan 0 ryan panel: No selection items chosen for this component. TB Quantiferon No data available for: QUANTIFERON*ne NIL*ne,ia MITOGEN-NIL*ne,ia TB AG-NIL*ne,ia Hep C 0 HBV SAgNo data available for: HBsAg*ic HBV SAbNo data available for: HBsAb*ic HBV CAb0 Hand & Foot Films: No data available Dexa Scans: Date Procedure CPT Status Case # 02/20/2024 DXA BONE DENSITY AXIAL [id number] Verified 2086 Normal bone mineral density in [...] 0.8 %. 12/14/2021 DXA BONE DENSITY AXIAL [id number] Verified 1297 1. The lumbar spine bone mineral density is normal. 2. The mean femoral neck bone mineral density is mildly osteopenic. 3. The calculated ten-year fracture risk probability is as follows: Major osteoporotic fracture-15% and hip fracture-0.4%. IMPRESSION/PLAN: 1) RA (714.0): Ms. Zimmerman was seen today via [facility] video visit for follow up of her RA. She is following with us via VV as she has relocated to [facility] and no [facility] rheumatology care in the area, she has otherwise [facility] the [facility]. She has been doing well since her last visit, with no major flare ups of RA symptoms. At her last visit MTX was increased to 17.5mg subq weekly given stiffness in her hands and she found this helpful. She otherwise has continued on HCQ 300mg daily, and humira q2 weeks. We will continue her current medications without modification, and plan to see her back via VVC in 3 months. When she is in town, discussed we would like to see her in person if able every year or so. - continue methotrexate 17.5 mg SQ once weekly with FA 4 mg daily - Continue hydroxychloroquine 300mg daily (she has 300mg tabs and takes 1 per day, she prefers this to alternating 200/400mg) - Continue Humira q14 days - had MTX monitoring labs [facility] at [facility],reviewed in [facility] and acceptable - RTC in 3 months on VVC, next visit after this in person 2) Medication toxicity monitoring (v58.69): Labs 09/2024 in [facility] stable and acceptable. -She will continue to get q3 month toxicity monitoring labs done with her PCP in [place], next due in December -Reports normal plaquenil eye exam 10/14/2024. Continue yearly eye exams 3) Bone Health: DEXA 02/2024 with osteopenia, FRAX 8.7%/0.7%. - continue calcium/vitD The patient was instructed to return to clinic via VVC visit in 3 months, and to contact us with questions or concerns in the interim. This patient was staffed by Dr. Amanda who agrees with assessment and plan above. /néstor/ DELMER GALICIA Rheumatology Fellow Signed: 10/14/2024 15:08 /néstor/ ARMANDO AMANDA STAFF PHYSICIAN Cosigned: 10/15/2024 15:20 10/15/2024 ADDENDUM STATUS: COMPLETED I was present during Mary Jane's VVC visit and agree with the assessment and plan above. acc /néstor/ ARMANDO AMANDA STAFF PHYSICIAN Signed: 10/15/2024 15:21 DELMER GALICIA [facility]
--- OUTSIDE RECORDS SUMMARY | 2024-10-31 06:06 | XMS_ITS | Encounter Summary ---
Author Name [facility] [place] [facility] [place] [facility] [place] Address [address] [place] [address] Care Team Providers Care Health Promotion Educator Name Role Phone KAT HARGROVE Primary Care [...] 4 RETIR EE Feb 04, 2007 104 [id number] ALBERT,A NNETTE PATIENT BCBS FEP PREFERRED PROVIDER ORGANIZAT ION (PPO) [id number] Oct 09, 2005 105 [id number] ALBERT,A NNETTE PATIENT CAREMARK FEP PRESCRIPT ION [id number] 500 Oct 09, 2007 [id number] [phone] ALBERT,See NNETTE PATIENT CAREMARK FEP RX [id number] PRESCRIPT ION [id number] 500 Oct 09, 2006 [id number] See PRICE PATIENT Selected Encounter This section includes the information on record at [place] for the Encounter. Date/Time Encounter Type Encounter Description Reason Provider Source Oct 31, 2024 11:06 AM Outpatient Encounter ADMIN PAT ACTIVTIES (MASNONCT) EMIGDIO SOMERS IHAri Encounter Template Text not used by [place] Plan of Treatment: Future Appointments (+ 6 months) and Future Tests (+/- 45 days) The Plan of Treatment section includes future care activities for the patient from all [place] [facility] This section includes future appointments and future orders which are active, pending or scheduled. Future Appointments This section includes appointments that were scheduled to occur 6 months from the date of the Encounter, up to a maximum of 20 appointments. The data comes from all [facility]. Appointment Date/Time Appointment Type Appointme nt Facility Name Nov 05, 2024 09:30 AM [facility] - [facility] Nov 06, 2024 08:00 AM [facility] Nov 06, 2024 02:10 PM AMBULATORY - [facility] Dec 05, 2024 09:11 AM [facility] - [facility] Dec 31, 2024 09:00 AM [facility] Feb 05, 2025 10:20 AM [facility]ORY - [facility] Mar 20, 2025 08:30 AM [facility]ATORY - MEDICINE [facility] Active, Pending, and Scheduled Orders This section includes a listing of several types of active, pending, and scheduled orders, including clinic medications orders, diagnostic test orders, procedure orders and consult orders; where the start date of the order is 45 days before the date of the Encounter or 45 days after the date of theEncounter. The data comes from all [facility]. Test Date/Time Test Type Test Details Facility Name Oct 15, 2024 12:00 AM Laboratory - Chemi stry Order ALT*NE BLOOD, RED OR GREEN OR GOLD SP ONCE [facility] Oct 15, 2024 12:00 AM Laboratory - Chemi stry Order ALBUMIN*NE BLOOD, RED OR GREEN OR GOLD SP ONCE [facility] Oct 15, 2024 12:00 AM Laboratory - Chemi stry Order AST*NE BLOOD, RED OR GREEN OR GOLD SP ONCE [facility] Oct 15, 2024 12:00 AM Laboratory - Chemi stry Order CREATININE + eGFR*NE BLOOD, RED OR GREEN OR GOLD SP ONCE [facility] Oct 15, 2024 12:00 AM Laboratory - Chemi stry Order C-REACTIVE PROTEIN*NE BLOOD, RED OR GREEN OR GOLD SP [facility] Oct 15, 2024 12:00 AM Laboratory - Chemi stry Order CBC (NO DIFF)*NE BLOOD, LAVENDER SP ONCE [facility] Oct 15, 2024 12:00 AM Laboratory - Chemi stry Order SEDRATE*NE BLOOD, LAVENDER SP [facility] Radiology Reports: +/- 30 days [...] the Encounter. The data comes from all [facility] facilities. Date/Time Radiology Report Provider Source Oct 03, 2024 08:00 AM FEE BASE OUTSIDE S CREENING MAMMOGRAM: CHAN MORRISON [id number] -[id number] F Exm Date: OCT 03, 2024@08:00 Req Phys: KAT HARGROVE Loc: PB-ALIZA PACT KEEGAN BATTERY ASSEMBLER (Req Img Loc: PB-MAMMOGRAM Service: Unknown (Case [id number] COMPLETE) FEE BASE OUTSIDE SCREENING MAMMOG(JACOBY Detailed) CPT:83747 Reason for Study: Mammogram Clinical History: Report Status: Electronically Filed Date Reported: OCT 03, 2024 Report: see impression text Impression: Impression: Exam was performed at an outside facility. Images and report have not been reviewed or read by [place] staff. To review report, you will need to log into [facility] and select the correct patient to see the canned in document. Consult dated:[id number] BIRADS:3 [facility] VERIFIED BY: / *ELECTRONICALLY FILED* EMERITA JI [facility] Encounter Notes: All associated encounter notes This section contains the clinical notes associated to the Encounter. Date/Time Encounter Note(s) Provider Source Oct 31, 2024 11:06 AM PRIMARY CARE NOTE: LOCAL TITLE: TVC TRAVELING PCMM NOTE PB STANDARD TITLE: PRIMARY CARE NOTE DATE OF NOTE: OCT 31, 2024@11:06 ENTRY DATE: OCT 31, 2024@11:06:48 AUTHOR: EMIGDIO SOMERS EXP COSIGNER: URGENCY: STATUS: COMPLETED Pt. has established care with [facility] on 09-19-24. PCMM complete. /néstor/ EMIGDIO Velasquez Cboc RNCC Signed: 10/31/2024 11:07 EMIGDIO SOMERS [facility]
--- OUTSIDE RECORDS SUMMARY | 2024-11-11 05:41 | XMS_ITS ---
Author Name [facility] [facility] [place] [facility] [place] Address [address] [place] [address] Care Team Providers Care Training And Development Project Leader Name Role Phone KAT HARGROVE Primary Care [...] 4 RETIR EE Feb 04, 2007 104 [id number] ALBERT,A NNETTE PATIENT BCBS FEP PREFERRED PROVIDER ORGANIZAT ION (PPO) [id number] Oct 09, 2005 105 [id number] [phone] ALBERT,A NNETTE PATIENT CAREMARK FEP PRESCRIPT ION [id number] 500 Oct 09, 2007 [id number] [phone] ALBERT,A NNETTE PATIENT CAREMARK FEP RX [id number] PRESCRIPT ION [id number] 500 Oct 09, 2006 [id number] [phone] See PRICE PATIENT Selected Encounter This section includes the information on record at [place] for the Encounter. Date/Time Encounter Type Encounter Description Reason Provider Source Nov 11, 2024 10:41 AM Outpatient Encounter ADMIN PAT ACTIVTIES (MASNONCT) INES VOGEL IHAri Encounter Template Text not used by [place] Plan of Treatment: Future Appointments (+ 6 months) and Future Tests (+/- 45 days) The Plan of Treatment section includes future care activities for the patient from all [place] [facility]. This section includes future appointments and future orders which are active, pending or scheduled. Future Appointments This section includes appointments that were scheduled to occur 6 months from the date of the Encounter, up to a maximum of 20 appointments. The data comes from all [facility] facilities. Appointment Date/Time Appointment Type Appointme nt Facility Name Dec 05, 2024 09:11 AM AMBULATORY - MEDICINE [facility] Dec 31, 2024 09:00 AM AMBULATORY - MEDICINE [facility] Feb 05, 2025 10:20 AM AMBULATORY - MEDICINE [facility] Mar 20, 2025 08:30 AM AMBULATORY - MEDICINE [facility] Active, Pending, and Scheduled Orders This section includes a listing of several types of active, pending, and scheduled orders, including clinic medications orders, diagnostic test orders, procedure orders and consult orders; where the start date of the order is 45 days before the date of the Encounter or 45 days after the date of theEncounter. The data comes from all [facility]. Test Date/Time Test Type Test Details Facility Name Oct 15, 2024 12:00 AM Laboratory - Chemi stry Order CBC (NO DIFF)*NE BLOOD, LAVENDER SP ONCE [facility] Oct 15, 2024 12:00 AM Laboratory - Chemi stry Order ALT*NE BLOOD, RED OR GREEN OR GOLD SP ONCE [facility] Oct 15, 2024 12:00 AM Laboratory - Chemi stry Order AST*NE BLOOD, RED OR GREEN OR GOLD SP ONCE [facility] Oct 15, 2024 12:00 AM Laboratory - Chemi stry Order ALBUMIN*NE BLOOD, RED OR GREEN OR GOLD SP ONCE [facility] Oct 15, 2024 12:00 AM Laboratory - Chemi stry Order CREATININE + eGFR*NE BLOOD, RED OR GREEN OR GOLD SP ONCE [facility] Oct 15, 2024 12:00 AM Laboratory - Chemi stry Order SEDRATE*NE BLOOD, LAVENDER SP [facility] Oct 15, 2024 12:00 AM Laboratory - Chemi stry Order C-REACTIVE PROTEIN*NE BLOOD, RED OR GREEN OR GOLD SP [facility] Social History: Smoking Status (Most current) and Tobacco Use (All prior to encounter date) This section includes the most current, and the historical, smoking and tobacco- related health factors from the [place] facility where the Encounter took place. Current Smoking Status This section includes the most current smoking, or tobacco-related health factor, from the [place] facility where the Encounter took place. Date/Time Current Smoking Status Comment Facil ity February 14, 2023 08:15 AM [place]-TOBACCO QUIT 15 YRS OR MORE [facility] Tobacco Use History This section includes a history of the smoking, or tobacco-related health factors, that were collected on or before the date of the Encounter. The data comes from the [place] facility where the Encounter took place. Date/Time Smoking Status/Tobacco Use Comment F acility February 14, 2023 08:15 AM [place]-TOBACCO QUIT 15 YRS OR MORE [facility] Encounter Notes: All associated encounter notes This section contains the clinical notes associated to the Encounter. Date/Time Encounter Note(s) Provider Source Nov 11, 2024 10:41 AM ADMINISTRATIVE NOT E: LOCAL TITLE: TRAVELING COORDINATOR PCMM NOTE STANDARD TITLE: ADMINISTRATIVE NOTE DATE OF NOTE: NOV 11, 2024@10:41 ENTRY DATE: NOV 11, 2024@10:41:51 AUTHOR: INES VOGEL EXP COSIGNER: URGENCY: STATUS: COMPLETED PCMM alert received to transfer care to: [facility] Relocation:Verified Scheduled to establish care on: Established care on: Sep Alert: Approved will be un-assigned from [place] Care established at another location Transfer of care initiated by: [place] Comments: /néstor/ INES VOGEL RN Signed: 11/11/2024 10:42 Receipt Acknowledged By: 11/11/2024 10:48 /es/ Regina Garza Associate Professor Of Management/PCMM Coordinator INES VOGEL [facility], [facility]
--- OUTSIDE RECORDS SUMMARY | 2025-01-01 05:21 | XMS_ITS ---
Author Name [facility] [place] Address [address] [place] [address] Care Team Providers Care Tactical Air Control Party Manager Name Role Phone KAT HARGROVE Primary Care [...] 4 RETIR EE Feb 04, 2007 104 [id number] ALBERT,A NNETTE PATIENT BCBS FEP PREFERRED PROVIDER ORGANIZAT ION (PPO) [id number] Oct 09, 2005 105 [id number] ALBERT,A NNETTE PATIENT [employer] FEP PRESCRIPT ION [id number] 500 Oct 09, 2007 [id number] [phone] ALBERT,See NNETTE PATIENT CAREMARK FEP RX [id number] PRESCRIPT ION [id number] 500 Oct 09, 2006 [id number] [phone] See DESOUZA PATIENT Selected Encounter This section includes the information on record at [place] for the Encounter. Date/Time Encounter Type Encounter Description Reason Provider Source Jan 01, 2025 10:21 AM MTMS BY PHARM LONG TERM CARE SOCIAL WORKER 15 MIN CLINICAL PHARMACY ICD-10-CM M06.9 Rheumatoid arthritis, unspecified ROSA BROCK Encounter Template Text not used by [place] Assessments - Encounter Diagnoses This section includes the primary and secondary diagnoses documented for the Encounter. Date/Time Primary/Secondary Diagnosis Diagnosis Name Provider Source Jan 01, 2025 10:27 AM PRIMARY Rheumatoid arthritis, unspecified ROSA BROCK V [facility] Plan of Treatment: Future Appointments (+ 6 months) and Future Tests (+/- 45 days) The Plan of Treatment section includes future care activities for the patient from all [place] treatmentfacilities. This section includes future appointments and future orders which are active, pending or scheduled. Future Appointments This section includes appointments that were scheduled to occur 6 months from the date of the Encounter, up to a maximum of 20 appointments. The data comes from all [place] treatment facilities. Appointment Date/Time Appointment Type Appointme nt Facility Name Feb 05, 2025 10:20 AM AMBULATORY - MEDICINE [facility] Mar 20, 2025 08:30 AM AMBULATORY - MEDICINE [facility] Encounter Notes: All associated encounter notes This section contains the clinical notes associated to the Encounter. Date/Time Encounter Note(s) Provider Source Jan 01, 2025 10:21 AM PHARMACY CONSULT: LOCAL TITLE: NON FORMULARY CONSULT PB STANDARD TITLE: PHARMACY CONSULT DATE OF NOTE: JAN 01, 2025@10:21 ENTRY DATE: JAN 01, 2025@10:21:24 AUTHOR: ROSA BROCK V EXP COSIGNER: URGENCY: STATUS: COMPLETED The medical record has been reviewed with regard to this prior authorization drug request. This prior authorization drug request originated with a [facility] provider. Medication requested: ADALIMUMAB-BWWD 40MG/0.8ML AUTOINJECTOR (HADLIMA) Medication indication: Rheumatoid arthritis Medical history relevant to this request: Rheumatoid arthritis.In addition to PRED,MTX & HCQ. Hadlima approved at previous [facility]. Process as Hadlima Adalimumab-BWWD 40mg/0.8ml autoinjector The request is approved - Meets [place] Continuity of Care Criteria /néstor/ ROSA BROCK CLINICAL NURSING HOME ASSISTANT ADMINISTRATOR Signed: 01/01/2025 10:27 Receipt Acknowledged By: 01/01/2025 12:32 /es/ ROSA MAGALLANES CPhT [facility]
--- OUTSIDE RECORDS SUMMARY | 2025-03-20 03:30 | XMS_ITS | Encounter Summary ---
Author Name [facility] Organization [facility] [place] Address [address] [place] [address] Care Team Providers Care Supervisor Tubing Name Role Phone KAT HARGROVE Primary Care [...] 4 RETIR EE Feb 04, 2007 104 [id number] [phone] ALBERT,A NNETTE PATIENT BCBS FEP PREFERRED PROVIDER ORGANIZAT ION (PPO) [id number] Oct 09, 2005 [id number] [phone] ALBERT,A NNETTE PATIENT CAREMARK FEP PRESCRIPT ION [id number] 500 Oct 09, 2007 [id number] [phone] ALBERT,See NNETTE PATIENT CAREMARK FEP RX [id number] PRESCRIPT ION [id number] 500 Oct 09, 2006 [id number] [phone] See DESOUZA PATIENT Selected Encounter This section includes the information on record at [place] for the Encounter. Date/Time Encounter Type Encounter Description Reason Provider Source Mar 20, 2025 08:30 AM OFFICE O/P EST MOD 30 MIN PRIMARY CARE/MEDICINE ICD-10-CM M06.9 Rheumatoid arthritis, unspecified LYNDSEY HARGROVE R IHE Encounter Template Text not used by [place] Assessments - Encounter Diagnoses This section includes the primary and secondary diagnoses documented for the Encounter. Date/Time Primary/Secondary Diagnosis Diagnosis Name Provider Source Mar 24, 2025 11:52 AM PRIMARY Rheumatoid arthritis, unspecified ESTEBAN HARGROVE [place] [facility] Mar 24, 2025 11:52 AM SECONDARY Chronic obstructive pulmonary disease, unspecified KARLY HARGROVEERI [place] [facility] Mar 24, 2025 11:52 AM SECONDARY Gastro-esophageal reflux disease without esophagitis ESTEBAN HARGROVE [place] [facility] Mar 24, 2025 11:52 AM SECONDARY Hyperlipidemia, unspecified ESTEBAN HARGROVE [place] [facility] Mar 24, 2025 11:52 AM SECONDARY Insomnia, unspecified KARLY HARGROVEERI [place] [facility] Mar 24, 2025 11:52 AM SECONDARY Irritable bowel syndrome, unspecified HARGROVEKARLYERI [place] [facility] Mar 24, 2025 11:52 AM SECONDARY Low back pain, unspecified ESTEBAN HARGROVE [place] [facility] Plan of Treatment: Future Appointments (+ 6 months) and Future Tests (+/- 45 days) The Plan of Treatment section includes future care activities for the patient from all [place] treatmentfacilities. This section includes future appointments and future orders which are active, pending or scheduled. Active, Pending, and Scheduled Orders This section includes a listing of several types of active, pending, and scheduled orders, including clinic medications orders, diagnostic test orders, procedure orders and consult orders; where the start date of the order is 45 days before the date of the Encounter or 45 days after the date of theEncounter. The data comes from all [place] treatment facilities. Test Date/Time Test Type Test Details Facility Name Apr 23, 2025 12:36 PM Consult Order COMMUNITY CARE-CHIROPRACTIC [id number] Cons Rn New Graduate's Choice EMERITA SLADE [facility] Vital Signs: All taken on the encounter date This section contains inpatient and outpatient Vital Signs collected on the date of the Encounter. Date/Time Temperature Pulse Blood Pressure Respiratory Rate SP02 Pain Height Weight Body Mass Index Source Mar 20, 2025 08:40 AM 97.7 79 129/84 97 165.1 29 [facility] Social History: Smoking Status (Most current) and Tobacco Use (All prior to encounter date) This section includes the most current, and the historical, smoking and tobacco- related health factors from the [place] facility where the Encounter took place. Current Smoking Status This section includes the most current smoking, or tobacco-related health factor, from the [place] facility where the Encounter took place. Date/Time Current Smoking Status Comment Facil ity Sep 19, 2024 09:01 AM PR-TOBACCO USE FORMER CIGARETTES [facility] Tobacco Use History This section includes a history of the smoking, or tobacco-related health factors, that were collected on or before the date of the Encounter. The data comes from the [place] facility where the Encounter took place. Date/Time Smoking Status/Tobacco Use Comment F acility Sep 19, 2024 09:01 AM VA-TOBACCO USE FORMER CIGARETTES [facility] Encounter Notes: All associated encounter notes This section contains the clinical notes associated to the Encounter. Date/Time Encounter Note(s) Provider Source Mar 20, 2025 09:17 AM PRIMARY CARE NURSING NOTE: LOCAL TITLE: PRIMARY CARE NURSING PROGRESS NOTE (TEXT) NURSING P STANDARD TITLE: PRIMARY CARE NURSING NOTE DATE OF NOTE: MAR 20, 2025@09:17 ENTRY DATE: MAR 20, 2025@09:17:11 AUTHOR: CHICHI LUCIANO EXP COSIGNER: URGENCY: STATUS: COMPLETED Established Patient CHAN MORRISON IS A 59 YEAR OLD FEMALE BEING SEEN IN CLINIC MAR 20, 2025. REASON FOR VISIT: RTC 6 months Are you receiving care any where other than the VA? No HEALTH AND SURGICAL HISTORY: Does patient report using home oxygen? No CURRENT ACTIVE MEDICATIONS FOR REVIEW: If the list for review does not include a component, then it was not applicable to this patient. Allergies/ADRs (Tool #5) FACILITY ALLERGY/ADR -------- [facility] VACCINE [facility] LATEX [facility] [place] [facility] LATEX [facility] LATEX [facility] [place] VACCINE Med. Reconciliation (Tool #1) INCLUDED IN THIS LIST: Alphabetical list of active outpatient prescriptions dispensed from this [place] (local) and dispensed from another [place] or [facility] facility (remote) as well as inpatient orders (local pending and active), local clinic medications, locally documented non-VA medications, and local prescriptions that have or been discontinued in the past 90 days. Non-VA Meds Last Documented On: Data not found NOTE The display of VA prescriptions dispensed from another [place] or DoD facility (remote) is limited to active outpatient prescription entries matched to National Drug File at the originating site and may not include some items such as investigational drugs, compounds, etc. NOT INCLUDED IN THIS LIST: Medications self-entered by the patient into personal health records (i.e. [employer]) are NOT included in this list. Non-VA medications documented outside this [place], remote inpatient orders (regardless of status) and remote clinic medications are NOT included in this list. The patient and provider must always discuss medications the patient is taking, regardless of where the medication was dispensed or obtained. OUTPT ADALIMUMAB-BWWD 40MG/0.8ML AUTOINJECTOR (Status = Discontinued) INJECT 40MG/0.8ML UNDER THE SKIN EVERY 14 DAYS Rx# [id number] Last Released: Qty/Days Supply: 12/06 Rx Expiration Date: 01/01/26 Refills Remainin OUTPT ADALIMUMAB-BWWD 40MG/0.8ML AUTOINJECTOR (Status = Active) INJECT 40MG/0.8ML UNDER THE SKIN EVERY 14 DAYS Rx# [id number] Last Released: 02/11/25 Qty/Days Supply: Rx Expiration Date: 01/01/26 Refills Remainin Remote ADALIMUMAB-BWWD 40MG/0.8ML AUTOINJECTOR INJECT 40MG (0.8ML) UNDER THE SKIN EVERY 14 DAYS Last Filled: 12/04/24 (Active at [facility]) Rx Expiration Date: 12/04/25 Days Supply: 84 OUTPT AMITRIPTYLINE HCL 50MG TAB (Status = Active/Suspended) TAKE ONE TABLET BY MOUTH AT BEDTIME FOR DEPRESSION Rx# [id number] Last Released: 12/25/24 Qty/Days Supply: 90 Rx Expiration Date: 09/23/25 Refills Remainin Indication: FOR DEPRESSION OUTPT BUPROPION HCL 150MG 12HR SA TAB (Status = Active) TAKE ONE TABLET BY MOUTH TWICE A DAY FOR DEPRESSION SWALLOW WHOLE - DO NOT CRUSH OR CHEW. Rx# [id number] Last Released: 02/24/25 Qty/Days Supply: 180/90 Rx Expiration Date: 09/23/25 Refills Remainin Indication: FOR DEPRESSION OUTPT CALCIUM 500MG/VITAMIN D 200 UNT TAB (Status = Active) TAKE 1 TABLET BY MOUTH ONCE A DAY FOR CALCIUM SUPPLEMENTATION TAKE WITH FOOD Rx# [id number] Last Released: 02/28/25 Qty/Days Supply: 120/90 Rx Expiration Date: 09/23/25 Refills Remainin Indication: FOR CALCIUM SUPPLEMENTATION OUTPT DOCUSATE NA 50MG/SENNOSIDES 8.6MG TAB (Status = Active/Suspended) TAKE 2 TABLETS BY MOUTH ONCE A DAY FOR SOFTENING STOOL HOLD FOR LOOSE STOOL/DIARRHEA. Rx# [id number] Last Released: 12/25/24 Qty/Days Supply: 200/90 Rx Expiration Date: 09/23/25 Refills Remainin Indication: FOR SOFTENING STOOL OUTPT FOLIC ACID 1MG TAB (Status = Discontinued) TAKE FOUR TABLETS BY MOUTH ONCE A DAY FOR FOLIC ACID SUPPLEMENTATION Rx# [id number] Last Released: 12/03/24 Qty/Days Supply: 400/90 Rx Expiration Date: 11/22/25 Refills Remainin Indication: FOR FOLIC ACID SUPPLEMENTATION OUTPT FOLIC ACID 1MG TAB (Status = Active/Suspended) TAKE FOUR TABLETS BY MOUTH ONCE A DAY Rx# [id number] Last Released: 02/03/25 Qty/Days Supply: 400/90 Rx Expiration Date: 01/01/26 Refills Remainin OUTPT GABAPENTIN 300MG CAP (Status = Active) TAKE ONE CAPSULE BY MOUTH THREE TIMES A DAY FOR NERVE PAIN Rx# [id number] Last Released: 02/19/25 Qty/Days Supply: 270/90 Rx Expiration Date: 09/23/25 Refills Remainin Indication: FOR NERVE PAIN OUTPT HYDROXYCHLOROQUINE SULFATE 200MG TAB (Status = Discontinued) TAKE ONE AND ONE-HALF TABLETS BY MOUTH ONCE A DAY FOR RHEUMATOID ARTHRITIS -REMINDER TO HAVE EYE EXAMS EVERY 12 MONTHS. TAKE WITH FOOD Rx# [id number] Last Released: 11/13/24 Qty/Days Supply: 135/90 Rx Expiration Date: 09/23/25 Refills Remainin Indication: FOR RHEUMATOID ARTHRITIS OUTPT HYDROXYCHLOROQUINE SULFATE 200MG TAB (Status = Active/Suspended) TAKE ONE AND ONE-HALF TABLETS BY MOUTH ONCE A DAY -REMINDER TO HAVE EYE EXAMS EVERY 12 MONTHS. TAKE WITH FOOD Rx# [id number] Last Released: 01/29/25 Qty/Days Supply: 135/90 Rx Expiration Date: 01/01/26 Refills Remainin OUTPT LACTOBACILLUS ACIDOPHILUS CAP (Status = Active) TAKE 2 CAPSULES BY MOUTH ONCE A DAY FOR NUTRITION/DIETARY SUPPLEMENTATION Rx# [id number] Last Released: 03/04/25 Qty/Days Supply: 200/90 Rx Expiration Date: 09/26/25 Refills Remainin Indication: FOR NUTRITION/DIETARY SUPPLEMENTATION OUTPT LORATADINE 10MG TAB (Status = Active) TAKE ONE TABLET BY MOUTH ONCE A DAY FOR ALLERGIC RHINITIS ON EMPTY STOMACH Rx# [id number] Last Released: 02/17/25 Qty/Days Supply: 90/90 Rx Expiration Date: 09/23/25 Refills Remainin Indication: FOR ALLERGIC RHINITIS OUTPT METHOTREXATE NA 25MG/ML PF INJ (Status = Active) INJECT 17.5MG/0.7ML INTRAMUSCULARLY EVERY 7 DAYS SINGLE DOSE VIALS Rx# [id number] Last Released: 02/11/25 Qty/Days Supply: Rx Expiration Date: 01/01/26 Refills Remainin OUTPT PANTOPRAZOLE NA 40MG EC TAB (Status = Active) TAKE ONE TABLET BY MOUTH EVERY MORNING BEFORE A MEAL FOR GASTROESOPHAGEAL REFLUX DISEASE TAKE 30 MINUTES BEFORE MEAL(S) Rx# [id number] Last Released: 02/18/25 Qty/Days Supply: Rx Expiration Date: 09/23/25 Refills Remainin Indication: FOR GASTROESOPHAGEAL REFLUX DISEASE OUTPT PREDNISONE 20MG TAB (Status = Active) TAKE ONE TO TWO TABLETS BY MOUTH ONCE A DAY NEEDED FOR UP TO 7 DAYS. TAKE WITH FOOD OR MILK. Rx# [id number] Last Released: 01/02/25 Qty/Days Supply: Rx Expiration Date: 01/01/26 Refills Remainin OUTPT ZOLPIDEM TARTRATE 5MG TAB (Status = Active) TAKE ONE TABLET BY MOUTH AT BEDTIME NEEDED FOR INSOMNIA (TAKE IMMEDIATELY BEFORE BEDTIME DUE TO RAPID ONSET OF ACTION) Rx# [id number] Last Released: 02/13/25 Qty/Days Supply: Rx Expiration Date: 03/25/25 Refills Remainin Indication: FOR INSOMNIA SUPPLIES OUTPT SYRINGE 2.5-3ML/NDL 22G 1.5IN (Status = Active) USE 1 SYRINGE INTRAMUSCULARLY ONCE A DAY FOR INJECTION Rx# [id number] Last Released: 02/12/25 Qty/Days Supply: Rx Expiration Date: 02/12/26 Refills Remainin Indication: FOR INJECTION OUTPT TUBERCULIN SYRINGE 1ML 28G 1/2IN (Status = Active) USE SYRINGE INTRAMUSCULARLY DIRECTED Rx# [id number] Last Released: Qty/Days Supply: Rx Expiration Date: 06/11/25 Refills Remainin PHARMACY TERMS AND POSSIBLE PATIENT ACTIONS INPT = [place] inpatient order IV = PR intravenous medication OUTPT = [place] outpatient prescription PHARMACY POSSIBLE PATIENT TERMS EXPLANATION ACTIONS -------- --- ACTIVE A prescription that can be If you have refills, filled at the local [place] pharmacy. you may request a refill of this prescription from your VA pharmacy. CLINIC A medication you received during If you have questions a visit to a [place] clinic or about this medication emergency department. contact your VA healthcare team. DISCONTINUED A prescription your provider has Contact your VA stopped. It is no longer healthcare team if you available to be sent to you or need more of this picked up at the [place] pharmacy medication. window. A prescription which is [...] the VA. Or, it may be an lodw-upc-soyynom (OTC), herbal, dietary supplements or sample medication. [...] An active prescription that is Contact your VA not scheduled to be filled yet. pharmacy if you need You should receive it before this medication now. you run out. ======== Medication list reviewed with Patient Patient/Caregiver reports taking medications as ordered. IS PATIENT TAKING ANY OVER THE COUNTER MEDICATIONS, SUCH VITAMINS OR HERBAL SUPPLEMENTS, INCLUDING ANY MEDICATIONS PRESCRIBED BY ANOTHER PHYSICIAN? No Does patient have any new allergies to report since last visit? NO VITALS: TEMPERATURE: 97.7 F [36.5 C] (03/20/2025 08:40) BP: 129/84 (03/20/2025 08:40) RESP: 18 (09/19/2024 09:25) PULSE: 79 (03/20/2025 08:40) HT: 63 in [160.0 cm] (09/19/2024 09:25) WT: 165.1 lb [74.89 kg] (03/20/2025 08:40) BMI: 29.3 PAIN ASSESSMENT: (Most Recent Pain Score in Vitals Package: 0 (09/19/2024 09:25) ) The patient indicated that they and [...] Now let us serve you. At the [facility], we strive to provide you with exceptional [...] Not At All SPIRITUAL ASSESSMENT: Are there jain practices or spiritual concerns you want the mixing machine tender, your physician, and other health care team members to immediately know about? No Patient advised to call the clinic for any concerns, questions, or symptoms. Patient and/or caregiver verbalized understanding of plan of care. /néstor/ Chichi Luciano RN [facility], [facility] Signed: 03/20/2025 09:19 CHICHI LUCIANO ND [facility] Mar 20, 2025 08:57 AM PRIMARY CARE PROGRESS NOTE: LOCAL TITLE: PRIMARY CARE CLINIC PROGRESS NOTE PB STANDARD TITLE: PRIMARY CARE PROGRESS NOTE DATE OF NOTE: MAR 20, 2025@08:57 ENTRY DATE: MAR 20, 2025@08:57:56 AUTHOR: KAT HARGROVE COSIGNER: URGENCY: STATUS: COMPLETED PROVIDER ASSESSMENT DATE & TIME:Mar@08:58 CHIEF COMPLAINT: 6 month follow up on chronic illness. HISTORY OF PRESENT ILLNESS: is being seen for month follow up on chronic illness. [place] is followed with Rheumatology and Orthopedics. is compliant with medications. [place] needs some refills on her medications. [place] does not use alcohol or tobacco products. denies any home needs. Active problems/med list sinker puller: 1) Chronic Post-Traumatic Stress Disorder ([facility] 168465505) 2) Rheumatoid arthritis 3) Gastroesophageal reflux disease without esophagitis 4) Depression 5) Allergic Rhinitis ([facility] 62504823) 6) Thoracic back pain 7) Low back pain 8) Basal cell carcinoma of face 9) Insomnia 10) Carpal tunnel syndrome 11) Osteopenia 12) Chronic kidney disease stage 3 13) Tinnitus 14) Irritable bowel syndrome 15) Hyperlipidemia ([facility] 10227025) 16) COPD - Chronic Obstructive Pulmonary Disease ([facility] [id number]) 17) Exposure to potentially hazardous substance ([facility] [id number]) Active Outpatient Medications (including Supplies): Active Outpatient Medications Status 1) ADALIMUMAB-BWWD 40MG/0.8ML AUTOINJECTOR INJECT 40MG/0.8ML ACTIVE UNDER THE SKIN EVERY 14 DAYS 2) AMITRIPTYLINE HCL 50MG TAB TAKE ONE TABLET BY MOUTH AT ACTIVE (S) BEDTIME Indication: FOR DEPRESSION 3) BUPROPION HCL 150MG 12HR SA TAB TAKE ONE TABLET BY MOUTH ACTIVE TWICE A DAY SWALLOW WHOLE - DO NOT CRUSH OR CHEW. Indication: FOR DEPRESSION 4) CALCIUM 500MG/VITAMIN D 200 UNT TAB TAKE 1 TABLET BY MOUTH ACTIVE ONCE A DAY TAKE WITH FOOD Indication: FOR CALCIUM SUPPLEMENTATION 5) DOCUSATE NA 50MG/SENNOSIDES 8.6MG TAB TAKE 2 TABLETS BY ACTIVE (S) MOUTH ONCE A DAY HOLD FOR LOOSE STOOL/DIARRHEA. Indication: FOR SOFTENING STOOL 6) FOLIC ACID 1MG TAB TAKE FOUR TABLETS BY MOUTH ONCE A DAY ACTIVE (S) 7) GABAPENTIN 300MG CAP TAKE ONE CAPSULE BY MOUTH THREE TIMES A ACTIVE DAY Indication: FOR NERVE PAIN 8) HYDROXYCHLOROQUINE SULFATE 200MG TAB TAKE ONE AND ONE-HALF ACTIVE (S) TABLETS BY MOUTH ONCE A DAY -REMINDER TO HAVE EYE EXAMS EVERY 12 MONTHS. TAKE WITH FOOD 9) LACTOBACILLUS ACIDOPHILUS CAP TAKE 2 CAPSULES BY MOUTH ONCE ACTIVE A DAY Indication: FOR NUTRITION/DIETARY SUPPLEMENTATION 10) LORATADINE 10MG TAB TAKE ONE TABLET BY MOUTH ONCE A DAY ON ACTIVE EMPTY STOMACH Indication: FOR ALLERGIC RHINITIS 11) METHOTREXATE NA 25MG/ML PF INJ INJECT 17.5MG/0.7ML ACTIVE INTRAMUSCULARLY EVERY 7 DAYS SINGLE DOSE VIALS 12) PANTOPRAZOLE NA 40MG EC TAB TAKE ONE TABLET BY MOUTH EVERY ACTIVE MORNING BEFORE A MEAL TAKE 30 MINUTES BEFORE MEAL(S) Indication: FOR GASTROESOPHAGEAL REFLUX DISEASE 13) PREDNISONE 20MG TAB TAKE ONE TO TWO TABLETS BY MOUTH ONCE A ACTIVE DAY NEEDED FOR UP TO 7 DAYS. TAKE WITH FOOD OR MILK. 14) SYRINGE 2.5-3ML/NDL 22G 1.5IN USE 1 SYRINGE INTRAMUSCULARLY ACTIVE ONCE A DAY Indication: FOR INJECTION 15) TUBERCULIN SYRINGE 1ML 28G 1/2IN USE SYRINGE INTRAMUSCULARLY ACTIVE DIRECTED 16) ZOLPIDEM TARTRATE 5MG TAB TAKE ONE TABLET BY MOUTH AT ACTIVE BEDTIME NEEDED (TAKE IMMEDIATELY BEFORE BEDTIME DUE TO RAPID ONSET OF ACTION) Indication: FOR INSOMNIA REVIEW OF SYSTEMS: HEENT: No Headache. No [...] urinary frequency, weak stream, or post-void dribbling. MUSCULOSKELETAL:Chronic joint pain. SKIN: No rash, lesions, or infection PSYCH: No Depression or Anxiety. Not suicidal. PHYSICAL ASSESSMENT: VITAL SIGNS Pulse: 79 (03/20/2025 08:40) Blood Pressure: 129/84 (03/20/2025 08:40) Respiratory Rate: 18 (09/19/2024 09:25) Temperature: 97.7 F [36.5 C] (03/20/2025 08:40) Weight: 165.1 lb [74.89 kg] (03/20/2025 08:40) Height: 63 in [160.0 cm] (09/19/2024 09:25) Pain: 0 (09/19/2024 09:25) HEENT:PERRL, EOMI, Fundi benign, TM's clear, Pharynx not red and without exudate, tonsils normal size. NECK: Supple, no lymhadenopathy, thyroid normal. CARDIAC: Regular rate and rhythm without murmur. No edema. RESPIRATORY: CTA, BEBS GI: Abdomen soft,with ABS, no HSM, no guarding or rebound. MUSCULOSKELETAL:Chronic joint pain with no acute change. FROM. SKIN: [place] without rash or lesions. NEUROLOGICAL: The [place] is alert and oriented without distress. Affect appropriate. IMPRESSION: Hyperlipidemia-stable GERD-stable Rheumatoid Arthritis-chronic Insomnia-chronic IBS-chronic Low Back Pain-chronic COPD-chronic PLAN: Increase water intake. Continue current medications. Will refill medications. Labs today. Monthly self breast exam. RTC in 6 months or sooner if needed. Patient is advised this primary care clinic [...] the After Visit Summary was reviewed with ; opportunity provided to report concerns and ask [...] results appointments. Medications Reconciled. Time spent 30 minutes. Cervical Cancer Screening - L,N,P,PH,U: The Pap smear reminder is being deferred. Reason: denies at this time /néstor/ LISA Hollingsworth- PARAMJIT Azar Signed: 03/24/2025 11:52 KAT HARGROVE
--- OUTSIDE RECORDS SUMMARY | 2025-03-20 09:45 | XMS_ITS | Encounter Summary ---
Author Name [facility] [place] [facility] [place] [facility] [place] Address [address] [place] [address] Care Team Providers Care Therapist Phys Name Role Phone KAT HARGROVE Primary Care [...] 4 RETIR EE Feb 04, 2007 104 [id number] ALBERT,A NNETTE PATIENT BCBS FEP PREFERRED PROVIDER ORGANIZAT ION (PPO) [id number] Oct 09, 2005 105 [id number] ALBERT,A NNETTE PATIENT CAR[employer] FEP PRESCRIPT ION [id number] 500 Oct 09, 2007 [id number] [phone] ALBERT,See NNETTE PATIENT CAREMARK FEP RX [id number] PRESCRIPT ION [id number] 500 Oct 09, 2006 [id number] [phone] See PRICE PATIENT Selected Encounter This section includes the information on record at [place] for the Encounter. Date/Time Encounter Type Encounter Description Reason Pro vider Source Mar 20, 2025 02:45 PM Outpatient Encounter ADMIN PAT ACTIVTIES (MASNONCT) IHE Encounter Template Text not used by [place] Plan of Treatment: Future Appointments (+ 6 months) and Future Tests (+/- 45 days) The Plan of Treatment section includes future care activities for the patient from all [place] treatmentfacilities. This section includes future appointments and [...] of theEncounter. The data comes from all [place] treatment facilities. Test Date/Time Test Type Test Details Facility Name Apr 23, 2025 12:36 PM Consult Order [facility] CARE-CHIROPRACTIC [id number] Cons [employer] Entertainer's Choice [facility] Encounter Notes: All associated encounter notes This section contains the clinical notes associated to the Encounter. Date/Time Encounter Note(s) Provider Source Mar 20, 2025 02:45 PM ADMINISTRATIVE NOT E: LOCAL TITLE: ADMINISTRATIVE NOTE PB STANDARD TITLE: ADMINISTRATIVE NOTE DATE OF NOTE: MAR 20, 2025@14:45 ENTRY DATE: MAR 20, 2025@14:45:34 AUTHOR: LAURA MONIQUE V EXP COSIGNER: URGENCY: STATUS: COMPLETED Voicemail left for requesting a return call to schedule pb-vernell pact jonathan amaral wh pid 09/19. Letter mailed. /es/ LAURA CHOW [facility] Signed: 03/20/2025 14:46 LAURA MONIQUE [facility]
--- OUTSIDE RECORDS SUMMARY | 2025-04-23 05:14 | XMS_ITS | Encounter Summary ---
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 Date/Time Encounter Type Encounter Description Reason Pro vider Source Apr 23, 2025 10:14 AM Outpatient Encounter COMMUNITY CARE CONSULT IHE Encounter Template Text not used by [facility] Plan of Treatment: Future Appointments (+ 6 months) and Future Tests (+/- 45 days) The Plan of Treatment section includes future care activities for the patient from all [facility] treatmentfacilities. This section includes future appointments and future orders which are active, pending or scheduled. Future Appointments This section includes appointments that were scheduled to occur 6 months from the date of the Encounter, up to a maximum of 20 appointments. The data comes from all [facility] treatment facilities. Appointment Date/Time Appointment Type Appointme nt Facility Name Sep 23, 2025 08:30 AM AMBULATORY - MEDICINE [facility] Active, Pending, and Scheduled Orders This section includes a listing of several types of active, pending, and scheduled orders, including clinic medications orders, diagnostic test orders, procedure orders and consult orders; where the start date of the order is 45 days before the date of the Encounter or 45 days after the date of theEncounter. The data comes from all [facility] treatment facilities. Test Date/Time Test Type Test Details Facility Name Apr 23, 2025 12:36 PM Consult Order COMMUNITY CARE-CHIROPRACTIC [id number] Cons Quality Control Technician's Choice [facility] Encounter Notes: All associated encounter notes This section contains the clinical notes associated to the Encounter. Date/Time Encounter Note(s) Provider Source Apr 23, 2025 10:23 AM LETTERS: LOCAL TITLE: COMMUNITY CARE-REQUEST FOR SERVICES (RFS) LETTER PB STANDARD TITLE: LETTERS DATE OF NOTE: APR 23, 2025@10:23 ENTRY DATE: APR 23, 2025@10:23:22 AUTHOR: MACRINA GREEN COSIGNER: URGENCY: STATUS: COMPLETED Name of Ordering Provider: Dr. Toni Hall Office: [facility] Address, [facility]: [address] [place] [id number] Dear Provider, [place] Information: Patient Name: CHAN MORRISON Date of : Mar The Ajay Vo [facility] has received the request for continuation of care from you for services that were not originally authorized in the [facility] for this . A consult has been entered for requested services. This consult request will be reviewed for services offered within the [facility] before approving services to community provider. If approved for community services, authorization will be faxed to the referred provider's office. It is recommended no further appointments be scheduled until the consult has been approved for community care, as the care may be deemed inappropriate for referral outside [facility]. Should you have questions, please contact us at [phone] to speak with a patient sales service executive. As a reminder, if applicable, return medical records within 30 days for routine services. Sincerely, Community Care Staff MACRINA GREEN [facility] Apr 23, 2025 10:14 AM NONVA NOTE: LOCAL TITLE: COMMUNITY CARE-REQUEST FOR SERVICE NOTE PB STANDARD TITLE: NONVA NOTE DATE OF NOTE: APR 23, 2025@10:14 ENTRY DATE: APR 23, 2025@10:14:15 AUTHOR: MACRINA GREEN EXP COSIGNER: URGENCY: STATUS: COMPLETED COMMUNITY CARE-REQUEST FOR SERVICE NOTE PB Has ADDENDA Request for Services (RFS) documentation has been sent for scanning to [facility] Community Care Consult: COMMUNITY CARE-Chiropractic [id number] Consult No: [id number] Date sent to scanning: Apr A Request for Service (RFS) form [id number] has been received which includes the following: Care Requested: RFS received from Dr. Hall requesting continuation of care for M54.41, M99.03, M54.6, M54.51, M62.830, M99.02, M99.04, and M99.05. Next appointment scheduled 04/25/2025 at 0810. Requesting 12 visits. ICD-10 Dx code: M54.41 Date [facility] received request: Apr Date service required: Apr Requesting Community Provider Information: Name of Ordering Provider: Dr. Toni Hall Office: [facility] Address, [facility]: [address] [place] [id number] /es/ MACRINA GREEN RN [facility] Signed: 04/23/2025 10:19 04/23/2025 ADDENDUM STATUS: COMPLETED [facility] Scanned Document - Addendum. Request for Services (RFS) documentation has been sent for scanning to [facility] Community Care Consult: [facility] CARE-Chiropractic [id number] Consult No: [id number] Date sent to scanning: Apr SCANNED DOCUMENT SIGNATURE NOT REQUIRED Electronically Filed: 04/23/2025 by: MACRINA Rosenthal [facility]
--- NOTE | 2025-04-25 08:05 | XR_ITS ---
WS: [id number] XR knee LT 3V* [id number] REASON FOR EXAM: Pain FINDINGS: No fracture or focal bone lesion. Joint spaces are intact and well preserved. The knee is unchanged compared to 10/30/2024. XR/XR knee LT 3V* [id number] IMPRESSION: Stable knee with no acute abnormality.
--- OUTSIDE RECORDS SUMMARY | 2025-04-25 08:10 | XMS_ITS | Continuity of Care Document ---
Author Name [facility] Organization [facility] Care Team Providers Care Hat Brusher Machine Name Role Phone [facility] Unavailable Unavailable Problems Combined list of problems from Department of Defense and Veterans Affairs facilities. It does not include entries that were removed or entered in error. Problem Status Onset Date Problem Type Date of Resolution Comments Source Depression Active 004 Condition [facility] Arthritis Active 003 Condition [facility] Allergic Rhinitis (SCT 46083389) Active Condition [facility] Allergic rhinitis (SNOMED CT 36702411) Active Condition [facility] Atrophic vaginitis Active Condition [facility] Basal cell carcinoma of face Active Condition [facility] Basal cell carcinoma of nose Active Condition [facility] Carpal tunnel syndrome Active Condition [facility] Chronic kidney disease stage 3 Active Condition [facility] Chronic Kidney Disease Stage 3 (SCT 548011618) Active Condition [facility] Chronic Post-Traumatic Stress Disorder (SCT 900733884) Active Condition [facility] Chronic post-traumatic stress disorder following combat (SNOMED CT 954995362) Active Condition [facility] COPD - Chronic Obstructive Pulmonary Disease (SCT 72059408) Active Condition [facility] Depression Active Condition [facility] Depression, NOS Active Condition [facility] Dyspareunia Active Condition [facility] Exposure to potentially hazardous substance (SCT 781689494389741) Active Condition February 06 4 Entered By: DANIEL MEDINA Comment: Entered automatically through JENNIFER Problem List documentation program [facility] Exposure to potentially hazardous substance (SCT 689117190993664) Active Condition Sep 25 4 Entered By: RAMIRO HEALY Comment: Entered automatically through JENNIFER Problem List documentation program [facility] Gastroesophageal reflux disease Active Condition [facility] Gastroesophageal reflux disease without esophagitis Active Condition [facility] Headache Active Condition [facility] History of squamous cell carcinoma of skin Active Condition [facility] History of traumatic brain injury Active Condition [facility] Hyperlipidemia (SCT 68013032) Active Condition [facility] Hyperlipidemia (SNOMED CT 91909970) Active Condition [facility] Insomnia Active Condition [facility] Insomnia (SNOMED CT 644980617) Active Condition [facility] Irritable bowel (SNOMED CT 66573631) Active Condition [facility] Irritable bowel syndrome Active Condition [facility] Keratoconjunctivitis sicca Active Condition [facility] Low back pain Active Condition [facility] Low back pain (SNOMED CT 378020587) Active Condition [facility] Neck pain Active Condition [facility] Osteopenia Active Condition March 05 024 Entered By: SHERRY PAYNE Comment: - last DEXA 02/2024 [facility] Osteopenia Active Condition [facility] PTSD, Chronic Active Condition [facility] Rheumatoid arthritis Active Condition [facility] Thoracic back pain Active Condition [facility] Tinnitus Active Condition [facility] Tinnitus of left ear Active Condition V [facility] Tinnitus of right ear Active Condition [facility] Tobacco Use Disorder Active Condition COUNT INCLUDES [facility] Vulvovaginitis Active Condition [facility] Acne (ICD-9-CM 706.1) Inactive Condition 02/21/2022 [facility] Constipation (SNOMED CT 23610459) Inactive Condition 02/21/2022 [facility] Degeneration of cervical intervertebral disc (ICD-9-CM 722.4) Inactive Condition 02/21/2022 [facility] Family History of other Specified Malignant Neoplasm (ICD-9-CM V16.8) Inactive Condition 02/21/2022 [facility] Heart Murmurs * (ICD-9-CM 785.2) Inactive Condition 02/21/2022 [facility] Hip: arthralgia (pain on rotation, pain in groin) * (ICD-9-CM 719.45) Inactive Condition 02/21/2022 [facility] Hypertriglyceridemia * (ICD-9-CM 272.1) Inactive Condition 02/21/2022 [facility] Irritability and anger Inactive Condition 02/21/2022 [facility] Nervousness Inactive Condition 02/21/2022 [facility] Paresthesias * (ICD-9-CM 782.0) Inactive Condition 02/21/2022 [facility] Personal History of Tobacco Use (ICD-9-CM V15.82) Inactive Condition 02/21/2022 [facility] RECTAL BLEEDING Inactive Condition 02/21/2022 Oct 18, 2012 Entered By: LASHAE BORJA Comment: colonoscopy 10/21 at [place] normal. Repeat in 10 yrs [facility] Snoring * Inactive Condition 02/21/2022 [facility] TINEA CRURIS Inactive Condition 02/21/2022 [facility] URINARY INCONTINENCE, UNSPEC Inactive Condition 02/21/2022 [facility] Diagnosis: ICD-10-CM M06.9 Rheumatoid arthritis, unspecified Active Diagnosis [facility] Diagnosis: ICD-10-CM K02.52 Dental caries on pit and fissure surfc penetrat into dentin Active Diagnosis [place] [facility] Diagnosis: ICD-10-CM F43.12 Post-traumatic stress disorder, chronic Active Diagnosis [facility] Diagnosis: ICD-10-CM Z12.2 Encntr screen for malignant neoplasm of respiratory organs Active Diagnosis [place] [facility] Diagnosis: ICD-10-CM C44.311 Basal cell carcinoma of skin of nose Active Diagnosis [facility] Diagnosis: ICD-10-CM Z76.0 Encounter for issue of repeat prescription Active Diagnosis [facility] Diagnosis: ICD-10-CM M25.561 Pain in right knee Active Diagnosis [facility] Diagnosis: ICD-10-CM Z01.810 Encounter for preprocedural cardiovascular examination Active Diagnosis [facility] Diagnosis: ICD-10-CM Z71.89 Other specified counseling Active Diagnosis [facility] Medications Combined list of outpatient medications from Department of Defense and [facility] facilities.Medications provided include 1) outpatient medications from the last 15 months, and 2) patient-reported medications. Medication Details Route Status Patient Instructions Prescription Expires Prescription Number Last Dispense Date Ordering Provider Order Date Order Qty Source ADALIMUMAB- BWWD 40MG/0.8ML AUTOINJECTO R INJECT 40MG/0.8 ML UNDER THE SKIN EVERY 14 DAYS SUBCUT ANEOUS ACTIVE 01/01/2026 [id number] 5 NOEL ZIMMERMAN 2024 6 [place] [facility] ADALIMUMAB- BWWD 40MG/0.8ML AUTOINJECTO R INJECT 40MG (0.8ML) UNDER THE SKIN EVERY 14 DAYS SUBCUT ANEOUS ACTIVE 12/04/2025 [id number] 5 YING PORTILLO 2024 6 [facility] ADALIMUMAB- BWWD 40MG/0.8ML AUTOINJECTO R INJECT 40MG/0.8 ML UNDER THE SKIN EVERY 14 DAYS SUBCUT ANEOUS DISCONT INUED 01/01/2026 [id number] 5 NOEL ZIMMERMAN 2024 2 [place] [facility] ADALIMUMAB- BWWD 40MG/0.8ML AUTOINJECTO R INJECT 40MG (0.8ML) UNDER THE SKIN EVERY 14 DAYS SUBCUT ANEOUS DISCONT INUED 03/13/2025 [id number] YING PORTILLO 2023 6 [facility] [place] AMITRIPTYLI NE HCL 50MG TAB TAKE ONE TABLET BY MOUTH AT BEDTIME FOR DEPRESSI ON ORAL SUSPEND ED 09/23/2025 [id number] 5 Halle HARGROVE R 2024 90 [facility] [place] AMITRIPTYLI NE HCL 50MG TAB TAKE ONE TABLET BY MOUTH AT BEDTIME FOR MOOD ORAL DISCONT INUED 01/31/2025 [id number] 5 Peggy PAYNE 2023 90 [facility] BUPROPION HCL 150MG 12HR TAB,SA TAKE ONE TABLET BY MOUTH TWICE A DAY FOR DEPRESSI ON SWALLOW WHOLE - DO NOT CRUSH OR CHEW. ORAL SUSPEND ED 09/23/2025 [id number] 5 Halle HARGROVE 2024 180 [facility] BUPROPION HCL 150MG 12HR TAB,SA TAKE ONE TABLET BY MOUTH EVERY 12 HOURS FOR MOOD ORAL DISCONT INUED 01/31/2025 [id number] 4 Peggy PAYNE 2023 180 [facility] CALCIUM 500MG/VITAM IN D 200UNT TAB TAKE 1 TABLET BY MOUTH ONCE A DAY FOR CALCIUM SUPPLEME NTATION TAKE WITH FOOD ORAL SUSPEND ED 09/23/2025 [id number] 5 Halle HARGROVE R 2023 120 [facility] CALCIUM CITRATE 315MG/VITAM IN D 200UNT TAB TAKE 2 TABLETS BY MOUTH TWICE A DAY ORAL DISCONT INUED 04/20/2025 [id number] 4 Peggy PAYNE 2023 360 [facility] CLONIDINE HCL 0.1MG TAB TAKE ONE TABLET BY MOUTH AT BEDTIME NEEDED FOR NIGHTMAR ES FOR SYMPTOMS ORAL 01/31/2025 [id number] 5 Peggy PAYNE 2023 90 [facility] DICLOFENAC NA 1% GEL,TOP APPLY 2 GRAM TOPICALL Y FOUR TIMES A DAY (USE DOSING CARD TO MEASURE DOSE) TOPICA L 02/26/2025 [id number] 4 PARISH COSTELLO 2023 800 [facility] DOCUSATE NA 50MG/SENNOS IDES 8.6MG TAB TAKE 2 TABLETS BY MOUTH ONCE A DAY FOR SOFTENIN G STOOL HOLD FOR LOOSE STOOL/DI ARRHEA. ORAL SUSPEND ED 09/23/2025 [id number] 5 Halle HARGROVE 2024 200 [facility] DOCUSATE NA 50MG/SENNOS IDES 8.6MG TAB TAKE 2 TABLETS BY MOUTH DAILY FOR CONSTIPA TION ORAL DISCONT INUED 08/30/2025 [id number] 5 Peggy PAYNE 2023 100 [facility] DOCUSATE NA 50MG/SENNOS IDES 8.6MG TAB TAKE 2 TABLETS BY MOUTH DAILY FOR CONSTIPA TION ORAL DISCONT INUED 11/15/2024 [id number] 4 Peggy PAYNE 2023 100 [facility] FISH OIL 1000MG (500MG DHA/EPA) CAP,ORAL TAKE 1 CAPSULE BY MOUTH EVERY DAY ORAL ACTIVE NAHEED OTTOHI HARJINDER Chapman 2018 [facility] FOLIC ACID 1MG TAB TAKE FOUR TABLETS BY MOUTH ONCE A DAY ORAL ACTIVE 01/01/2026 [id number] 5 NOEL ZIMMERMAN 2024 400 [place] [facility] FOLIC ACID 1MG TAB TAKE FOUR TABLETS BY MOUTH ONCE A DAY FOR FOLIC ACID SUPPLEME NTATION ORAL DISCONT INUED 11/22/2025 [id number] 5 Halle HARGROVE 2024 400 [facility] FOLIC ACID 1MG TAB TAKE ONE TABLET BY MOUTH ONCE A DAY FOR FOLIC ACID SUPPLEME NTATION ORAL DISCONT INUED (EDIT) 09/23/2025 [id number] 5 Halle HARGROVE 2024 100 [facility] FOLIC ACID 1MG TAB TAKE FOUR TABLETS BY MOUTH EVERY DAY ORAL DISCONT INUED 10/31/2024 [id number] 4 EMILY BURTON IN T 2023 400 [facility] [place] [facility] GABAPENTIN 300MG CAP TAKE ONE CAPSULE BY MOUTH THREE TIMES A DAY FOR NERVE PAIN ORAL SUSPEND ED 09/23/2025 [id number] 5 Halle HARGROVE 2024 270 [facility] GABAPENTIN 300MG CAP TAKE THREE CAPSULES BY MOUTH EVERY DAY FOR NIGHT SWEATS FOR NIGHT SWEATS ORAL DISCONT INUED 01/31/2025 [id number] 4 Peggy PAYNE 2023 270 [facility] HYDROXYCHLO ROQUINE SO4 200MG TAB TAKE ONE AND ONE-HALF TABLETS BY MOUTH ONCE A DAY -REMINDE R TO HAVE EYE EXAMS EVERY 12 MONTHS. TAKE WITH FOOD ORAL ACTIVE 01/01/2026 [id number] 5 NOEL ZIMMERMAN 2024 135 [place] [facility] HYDROXYCHLO ROQUINE SO4 200MG TAB TAKE ONE AND ONE-HALF TABLETS BY MOUTH ONCE A DAY FOR RHEUMATO ID ARTHRITI S -REMINDE R TO HAVE EYE EXAMS EVERY 12 MONTHS. TAKE WITH FOOD ORAL DISCONT INUED 09/23/2025 [id number] 5 Halle HARGROVE 2024 135 [facility] HYDROXYCHLO ROQUINE SO4 200MG TAB TAKE ONE TABLET BY MOUTH TWICE A DAY ORAL DISCONT INUED (EDIT) 10/31/2024 [id number] 4 EMILY BURTON IN T 2023 180 [facility] [place] [facility] HYDROXYCHLO ROQUINE SO4 300MG TAB TAKE ONE TABLET BY MOUTH EVERY DAY FOR RHEUMATO ID ARTHRITI S ORAL DISCONT INUED 03/13/2025 [id number] YING PORTILLO 2023 90 [facility] [place] [facility] LACTOBACILL US ACIDOPHILUS CAP TAKE 2 CAPSULES BY MOUTH ONCE A DAY FOR NUTRITIO N/DIETAR Y SUPPLEME NTATION ORAL SUSPEND ED 09/26/2025 [id number] 5 Halle HARGROVE 2023 200 [facility] LACTOBACILL US ACIDOPHILUS TAB,CHEWABL E CHEW 2 TABLETS BY MOUTH EVERY DAY FOR DIETARY SUPPLEME NT FOR DIGESTIO N ORAL 01/31/2025 [id number] 5 Peggy PAYNE 2023 200 [facility] LORATADINE 10MG TAB TAKE ONE TABLET BY MOUTH ONCE A DAY FOR ALLERGIC RHINITIS ON EMPTY STOMACH ORAL SUSPEND ED 09/23/2025 [id number] 5 Halle HARGROVE R 2024 90 [place] [facility] LORATADINE 10MG TAB TAKE ONE TABLET BY MOUTH EVERY DAY FOR ALLERGIE S (SAME CLARITIN ) ORAL DISCONT INUED 01/31/2025 [id number] 4 Peggy PAYNE 2023 90 [facility] Franc Meloxicam (Meloxicam) , 15mg, Tablet, Oral, [facility], 1000 Ea. Bottle Cancele d [id number] : 2023 0 Pharmac y Data Transac tion Service Facilit y METHOTREXAT E NA 25MG/ML (PF) INJ INJECT 17.5MG/0 .7ML INTRAMUS CULARLY EVERY 7 DAYS SINGLE DOSE VIALS INTRAM USCULA R ACTIVE 01/01/2026 [id number] 5 NOEL ZIMMERMAN 2024 10 [place] [facility] METHOTREXAT E NA 25MG/ML INJ INJECT 0.7ML INTRAMUS CULARLY EVERY 7 DAYS INTRAM USCULA R ACTIVE 04/08/2026 [id number] 5 NOEL ZIMMERMAN 2024 10 [place] [facility] METHOTREXAT E NA 25MG/ML INJ INJECT 15 MG (0.6 ML) UNDER THE SKIN EVERY 7 DAYS SUBCUT ANEOUS DISCONT INUED 10/31/2024 [id number] EMILY BURTON IN [place] 2023 4 [facility] N METHOTREXAT E NA 25MG/ML INJ INJECT 15 MG (0.6 ML) UNDER THE SKIN EVERY 7 DAYS SUBCUT ANEOUS 03/13/2025 [id number] YING PORTILLO 2023 8 [facility] OXYCODONE HCL (OXYCODONE HCL), 5MG, TABLET, ORAL, [facility], 100 ea. BOTTLE Active [id number] 2023 42 Pharmac y Data Transac tion Service Facilit y PANTOPRAZOL E NA 40MG TAB,EC TAKE ONE TABLET BY MOUTH EVERY MORNING BEFORE A MEAL FOR GASTROES OPHAGEAL REFLUX DISEASE TAKE 30 MINUTES BEFORE MEAL(S) ORAL SUSPEND ED 09/23/2025 [id number] 5 Halle HARGROVE 2024 90 [facility] PANTOPRAZOL E NA 40MG TAB,EC TAKE ONE TABLET BY MOUTH EVERY DAY FOR GASTROES OPHAGEAL REFLUX DISEASE ORAL DISCONT INUED 01/31/2025 [id number] 4 Peggy PAYNE 2023 90 [facility] PREDNISONE 20MG TAB TAKE ONE TO TWO TABLETS BY MOUTH ONCE A DAY NEEDED FOR UP TO 7 DAYS. TAKE WITH FOOD OR MILK. ORAL ACTIVE 01/01/2026 [id number] 5 NOEL ZIMMERMAN 2024 30 [place] [facility] ZOLPIDEM TARTRATE 5MG TAB TAKE ONE TABLET BY MOUTH AT BEDTIME NEEDED FOR INSOMNIA (TAKE IMMEDIAT LOU BEFORE BEDTIME DUE TO RAPID ONSET OF ACTION) ORAL 03/25/2025 [id number] 5 Halle HARGROVE 2023 30 [facility] ZOLPIDEM TARTRATE 5MG TAB TAKE ONE TABLET BY MOUTH AT BEDTIME NEEDED FOR SLEEP ORAL 08/02/2024 [id number] Peggy PAYNE 2023 30 [facility] ZZTUMERIC CAP/TAB TAKE 1 CAP/TAB BY MOUTH EVERY DAY ORAL ACTIVE Erin RAI 2019 [facility] Allergies, Adverse Reactions, Alerts Combined list of allergies from Department of Defense and Veterans Affairs facilities. It does not include entries that were removed or entered in error. Substance Category Reaction Severity Reaction type Status Date Reported Comments Source LATEX Propensity to adverse reactions to drug (finding) Itching active 6 [facility] LATEX Propensity to adverse reactions to drug (finding) Eruption active 9 [facility] LATEX [place] Propensity to adverse reactions to drug (finding) Urticaria SEVERE active 4 [facility] SMALLPOX VACCINE Propensity to adverse reactions to drug (finding) active 4 [facility] SMALLPOX VACCINE Propensity to adverse reactions to drug (finding) Lymphadenopa thy active 6 [facility] SMALLPOX VACCINE Propensity to adverse reactions to drug (finding) Edema active 9 [facility] Immunizations Combined list of available immunizations from the Department of Defense and Veterans Affairs facilities. Immunization Series Date Given Administered By Site Reaction Lot Number CVX Code Drug Billet Cutter Status Comments Source ZOSTER RECOMBINANT 2 2021 187 complet ed [facility] ZOSTER RECOMBINANT 1 2021 187 complet ed [facility] INFLUENZA, INJECTABLE, QUADRIVALENT, PRESERVATIVE FREE 2019 150 complet ed [facility] [place] [facility] PNEUMOCOCCAL POLYSACCHARID E [id number] 2 2019 33 complet ed HISTORICA L INFORMATI ON - FROM OTHER REGISTRY, [facility] PNEUMOCOCCAL CONJUGATE PCV 13 2018 133 complet ed wyeth [id number] 07/28 [facility] Influenza, injectable, quadrivalent, preservative free 1 2017 Unknown, Provider [id number] 150 [employer] (SEQ) complet ed Influenza , injectabl e, quadrival ent, preservat ewelina free [facility] INFLUENZA, SEASONAL, INJECTABLE 2017 141 complet ed [facility] [place] [facility] INFLUENZA, INJECTABLE, QUADRIVALENT, PRESERVATIVE FREE 2017 150 complet ed [facility] INFLUENZA, SEASONAL, INJECTABLE, PRESERVATIVE FREE 2015 140 complet ed [facility] INFLUENZA, INJECTABLE, QUADRIVALENT, PRESERVATIVE FREE 2015 150 complet ed [facility] INFLUENZA, UNSPECIFIED FORMULATION 2013 88 complet ed [facility] TETANUS DIPHTHERIA AND PERTUSSIS (HISTORICAL) 2013 107 complet ed [id number] 05-03-2016 [facility] INFLUENZA, UNSPECIFIED FORMULATION 2011 88 complet ed [facility] INFLUENZA, UNSPECIFIED FORMULATION 2010 88 complet ed [facility] NOVEL INFLUENZA-H1N 1-09, ALL FORMULATIONS 2008 128 complet ed [facility] [place] [facility] INFLUENZA, UNSPECIFIED FORMULATION 2008 NONE 88 complet ed Completed Series, [facility] INFLUENZA, UNSPECIFIED FORMULATION 2006 88 complet ed [facility] INFLUENZA, UNSPECIFIED FORMULATION 2003 MAN BAE 88 complet ed [facility] anthrax vaccine 3 2003 Unknown, Provider [id number] [employer] [facility] ([place]) complet ed anthrax vaccine DoD influenza virus vaccine, split virus (incl. purified surface antigen)-reti red CODE 1 2002 Unknown, Provider [id number] 15 [employer] ([facility]) complet ed influenza virus vaccine, split virus (incl. purified surface antigen)- retired CODE DoD hepatitis B vaccine, adult dosage 1 2002 Unknown, Provider UNK 43 Unknown (UNK) complet ed hepatitis B vaccine, adult dosage DoD hepatitis A vaccine, adult dosage 2 2002 Unknown, Provider UNK 52 Unknown (UNK) complet ed hepatitis A vaccine, adult dosage DoD anthrax vaccine 2 2002 Unknown, Provider [id number] Other (OTH) complet ed anthrax vaccine DoD hepatitis B vaccine, adult dosage 2 2002 Unknown, Provider UNK 43 Unknown (UNK) complet ed hepatitis B vaccine, adult dosage DoD anthrax vaccine 3 2002 Unknown, Provider UNK 24 Unknown (UNK) complet ed anthrax vaccine DoD TD(ADULT) UNSPECIFIED FORMULATION 2002 139 complet ed [facility] anthrax vaccine 2 2002 Unknown, Provider UNK 24 Unknown (UNK) complet ed anthrax vaccine DoD meningococcal polysaccharid e vaccine (MPSV4) 1 2002 Unknown, Provider UNK 32 Unknown (UNK) complet ed meningoco ccal polysacch aride vaccine (MPSV4) DoD yellow fever vaccine 1 2002 Unknown, Provider UNK 37 Unknown (UNK) complet ed yellow fever vaccine DoD hepatitis B vaccine, unspecified formulation 1 2002 Unknown, Provider UNK 45 Unknown (UNK) complet ed hepatitis B vaccine, unspecifi ed formulati on DoD typhoid vaccine, unspecified formulation 1 2002 Unknown, Provider UNK 91 Unknown (UNK) complet ed typhoid vaccine, unspecifi ed formulati on DoD tetanus and diphtheria toxoids, adsorbed, preservative free, for adult use (2 Lf of tetanus toxoid and 2 Lf of diphtheria toxoid) 1 2002 Unknown, Provider UNK 09 Unknown (UNK) complet ed tetanus and diphtheri a toxoids, adsorbed, preservat ewelina free, for adult use (2 Lf of tetanus toxoid and 2 Lf of diphtheri a toxoid) DoD influenza virus vaccine, split virus (incl. purified surface antigen)-reti red CODE 1 2002 Unknown, Provider UNK 15 Unknown (UNK) complet ed influenza virus vaccine, split virus (incl. purified surface antigen)- retired CODE DoD anthrax vaccine 1 2002 Unknown, Provider [id number] Jahaira (BAY) complet ed anthrax vaccine DoD hepatitis A vaccine, adult dosage 1 2002 Unknown, Provider UNK 52 Unknown (UNK) complet ed hepatitis A vaccine, adult dosage DoD TD(ADULT) UNSPECIFIED FORMULATION 2002 139 complet ed [employer] influenza virus vaccine, split virus (incl. purified surface antigen)-reti red CODE 1 2000 Unknown, Provider [id number] 15 [employer] Pasteur ([facility]) complet ed influenza virus vaccine, split virus (incl. purified surface antigen)- retired CODE DoD Results Combined list of recent chemistry, hematology and other laboratory results from Department of Defense and Veterans Affairs, ranging from 15 months to all on record, depending upon the facility. Order Name Results Value Reference Range Date Interpretation Specimen Comments Source RHEUMATO ID FACTOR (PB) RHEUMATOID FACTOR [UNITS/VOL UME] IN SERUM OR PLASMA <15.0[IU ]/mL 0 - 30 09/19 L Specimen Type: SERUM No comment entered. Ordering Provider: SHAYY HARGROVE Report Released Date/Time: Sep 19, 2024 10:09 AM Reporting Lab: [place] [facility] [address] [place] [phone] Performing Lab: [place] [facility] [address] [place] [address] [facility] ESR,ISED -PB ERYTHROCYT E SEDIMENTAT ION RATE 30 mm/h 0 - 29 09/19 H Specimen Type: BLOOD No comment entered. Ordering Provider: SHAYY HARGROVE Report Released Date/Time: Sep 19, 2024 10:09 AM Reporting Lab: [place] [facility] [address] [place] [phone] Performing Lab: [place] [facility] [address] [place] [address] [facility] CBC LEUKOCYTES [#/VOLUME] IN BLOOD BY AUTOMATED COUNT 8.3 10*3/uL 3.6 - 11.2 09/19 Specimen Type: BLOOD No comment entered. Ordering Provider: SHAYY HARGROVE Report Released Date/Time: Sep 19, 2024 10:09 AM Reporting Lab: [place] [facility] [address] [place] [address] Performing Lab: [place] [facility] [address] [place] [address] [facility] CBC ERYTHROCYT ES [#/VOLUME] IN BLOOD BY AUTOMATED COUNT 4.95 10*6/uL 3.60 - 5.00 09/19 Specimen Type: BLOOD No comment entered. Ordering Provider: SHAYY HARGROVE Report Released Date/Time: Sep 19, 2024 10:09 AM Reporting Lab: [place] [facility] [address] [place] [address] Performing Lab: [place] [facility] [address] [place] [address] [facility] CBC HEMOGLOBIN [MASS/VOLU ME] IN BLOOD 15.0 g/dL 11.0 - 14.9 09/19 H Specimen Type: BLOOD No comment entered. Ordering Provider: SHAYY HARGROVE R Report Released Date/Time: Sep 19, 2024 10:09 AM Reporting Lab: [place] [facility] [address] [place] [address] Performing Lab: [place] [facility] [address] [place] [address] [facility] CBC HEMATOCRIT [VOLUME FRACTION] OF BLOOD 45.1 32.6 - 43.4 09/19 H Specimen Type: BLOOD No comment entered. Ordering Provider: SHAYY HARGROVE R Report Released Date/Time: Sep 19, 2024 10:09 AM Reporting Lab: [place] [facility] [address] [place] [id number] Performing Lab: [place] [facility] [facility] [address] [place] [id number] [facility] CBC MCV [ENTITIC VOLUME] BY AUTOMATED COUNT 91.1 fL 80.0 - 100.0 09/19 Specimen Type: BLOOD No comment entered. Ordering Provider: SHAYY HARGROVE R Report Released Date/Time: Sep 19, 2024 10:09 AM Reporting Lab: [place] [facility] [address] [place] [address] Performing Lab: [place] [facility] [address] [place] [id number] [facility] CBC MCH [ENTITIC MASS] BY AUTOMATED COUNT 30.3 pg 27.0 - 34.0 09/19 Specimen Type: BLOOD No comment entered. Ordering Provider: SHAYY HARGROVE R Report Released Date/Time: Sep 19, 2024 10:09 AM Reporting Lab: [place] [facility] [address] [place] [facility] Performing Lab: [place] [facility] [address] [place] [address] [facility] CBC MCHC [MASS/VOLU ME] BY AUTOMATED COUNT 33.3 g/dL 33.0 - 36.0 09/19 Specimen Type: BLOOD No comment entered. Ordering Provider: SHAYY HARGROVE Report Released Date/Time: Sep 19, 2024 10:09 AM Reporting Lab: [place] [facility] [address] [place] [address] Performing Lab: [place] [facility] [address] [place] [address] [facility] CBC PLATELETS [#/VOLUME] IN BLOOD BY AUTOMATED COUNT 333 10*3/uL 150 - 400 09/19 Specimen Type: BLOOD No comment entered. Ordering Provider: SHAYY HARGROVE Report Released Date/Time: Sep 19, 2024 10:09 AM Reporting Lab: [place] [facility] [address] [place] [address] Performing Lab: [place] [facility] [address] [place] [address] [facility] CBC PLATELET MEAN VOLUME [ENTITIC VOLUME] IN BLOOD BY AUTOMATED COUNT 10.4 fL 7.5 - 11.2 09/19 Specimen Type: BLOOD No comment entered. Ordering Provider: SHAYY HARGROVE R Report Released Date/Time: Sep 19, 2024 10:09 AM Reporting Lab: [place] [facility] [address] [place] [address] Performing Lab: [place] [facility] [address] [place] [address] [facility] CBC ERYTHROCYT E DISTRIBUTI ON WIDTH [RATIO] BY AUTOMATED COUNT 13.2 11.8 - 15.1 09/19 Specimen Type: BLOOD No comment entered. Ordering Provider: SHAYY HARGROVE R Report Released Date/Time: Sep 19, 2024 10:09 AM Reporting Lab: [place] [facility] [address] [place] [address] Performing Lab: [place] [facility] [address] [place] [address] [facility] CBC LYMPHOCYTE S/100 LEUKOCYTES IN BLOOD BY AUTOMATED COUNT 23.4 09/19 Specimen Type: BLOOD No comment entered. Ordering Provider: SHAYY HARGROVE R Report Released Date/Time: Sep 19, 2024 10:09 AM Reporting Lab: [place] [facility] [address] [place] [address] Performing Lab: [place] [facility] [address] [place] [address] [facility] CBC MONOCYTES/ 100 LEUKOCYTES IN BLOOD BY AUTOMATED COUNT 7.3 09/19 Specimen Type: BLOOD No comment entered. Ordering Provider: SHAYY HARGROVE Report Released Date/Time: Sep 19, 2024 10:09 AM Reporting Lab: [place] [facility] [address] [place] [address] Performing Lab: [place] [facility] [address] [place] [address] [facility] CBC NEUTROPHIL S/100 LEUKOCYTES IN BLOOD BY AUTOMATED COUNT 61.8 09/19 Specimen Type: BLOOD No comment entered. Ordering Provider: SHAYY HARGROVE R Report Released Date/Time: Sep 19, 2024 10:09 AM Reporting Lab: [place] [facility] [address] [place] [address] Performing Lab: [place] [facility] [address] [place] [address] [facility] CBC EOSINOPHIL S/100 LEUKOCYTES IN BLOOD BY AUTOMATED COUNT 6.2 09/19 Specimen Type: BLOOD No comment entered. Ordering Provider: SHAYY HARGROVE R Report Released Date/Time: Sep 19, 2024 10:09 AM Reporting Lab: [place] [facility] [address] [place] [address] Performing Lab: [place] [facility] [address] [place] [address] [facility] CBC BASOPHILS/ 100 LEUKOCYTES IN BLOOD BY AUTOMATED COUNT 1.1 09/19 Specimen Type: BLOOD No comment entered. Ordering Provider: SHAYY HARGROVE R Report Released Date/Time: Sep 19, 2024 10:09 AM Reporting Lab: [place] [facility] [address] [place] [address] Performing Lab: [place] [facility] [address] [place] [address] [facility] CBC LYMPHOCYTE S [#/VOLUME] IN BLOOD BY AUTOMATED COUNT 1.93 10*3/uL 0.77 - 4.50 09/19 Specimen Type: BLOOD No comment entered. Ordering Provider: SHAYY HARGROVE R Report Released Date/Time: Sep 19, 2024 10:09 AM Reporting Lab: [place] [facility] [address] [place] [address] Performing Lab: [place] [facility] [address] [place] [address] [facility] CBC MONOCYTES [#/VOLUME] IN BLOOD BY AUTOMATED COUNT 0.60 10*3/uL 0.19 - 0.8 09/19 Specimen Type: BLOOD No comment entered. Ordering Provider: SHAYY HARGROVE R Report Released Date/Time: Sep 19, 2024 10:09 AM Reporting Lab: [place] [facility] [address] [place] [phone] Performing Lab: [place] [facility] [address] [place] [address] [facility] CBC NEUTROPHIL S [#/VOLUME] IN BLOOD BY AUTOMATED COUNT 5.10 10*3/uL 2.10 - 8.00 09/19 Specimen Type: BLOOD No comment entered. Ordering Provider: SHAYY HARGROVE R Report Released Date/Time: Sep 19, 2024 10:09 AM Reporting Lab: [place] [facility] [address] [place] [phone] Performing Lab: [place] [facility] [address] [place] [address] [facility] CBC EOSINOPHIL S [#/VOLUME] IN BLOOD BY AUTOMATED COUNT 0.51 10*3/uL 0.00 - 0.60 09/19 Specimen Type: BLOOD No comment entered. Ordering Provider: SHAYY HARGROVE R Report Released Date/Time: Sep 19, 2024 10:09 AM Reporting Lab: [place] [facility] [address] [place] [address] Performing Lab: [place] [facility] [address] [place] [address] [place] [address] [facility] CBC BASOPHILS [#/VOLUME] IN BLOOD BY AUTOMATED COUNT 0.09 10*3/uL 0.00 - 0.20 09/19 Specimen Type: BLOOD No comment entered. Ordering Provider: SHAYY HARGROVE Report Released Date/Time: Sep 19, 2024 10:09 AM Reporting Lab: [place] [facility] [address] [place] [address] Performing Lab: [place] [facility] [address] [place] [address] [place] [address] [facility] CBC IMMATURE GRANULOCYT ES/100 LEUKOCYTES IN BLOOD BY AUTOMATED COUNT 0.2 09/19 Specimen Type: BLOOD No comment entered. Ordering Provider: SHAYY HARGROVE R Report Released Date/Time: Sep 19, 2024 10:09 AM Reporting Lab: [place] [facility] [address] [place] [phone] Performing Lab: [place] [facility] [address] [place] [address] [facility] CBC IMMATURE GRANULOCYT ES [#/VOLUME] IN BLOOD BY AUTOMATED COUNT 0.02 10*3/uL 0.00 - 0.05 09/19 Specimen Type: BLOOD No comment entered. Ordering Provider: SHAYY HARGROVE R Report Released Date/Time: Sep 19, 2024 10:09 AM Reporting Lab: [place] [facility] [address] [place] [phone] Performing Lab: [place] [facility] [address] [place] [address] [facility] HGA1C HEMOGLOBIN A1C/HEMOGL OBIN.TOTAL IN BLOOD 5.7 4.0 - 6.0 09/19 Specimen Type: BLOOD No comment entered. Ordering Provider: SHAYY HARGROVE Report Released Date/Time: Sep 19, 2024 10:09 AM Reporting Lab: [place] [facility] [address] [place] [phone] Performing Lab: [place] [facility] [address] [place] [address] [facility] COMPREHE NSIVE METABOLI C PANEL CREATININE [MASS/VOLU ME] IN SERUM OR PLASMA 1.03 mg/dL 0.6 - 1.1 09/19 Specimen Type: PLASMA No comment entered. Ordering Provider: SHAYY HARGROVE Report Released Date/Time: Sep 19, 2024 10:09 AM Reporting Lab: [place] [facility] [address] [place] [address] Performing Lab: [place] [facility] [address] [place] [address] [facility] COMPREHE NSIVE METABOLI C PANEL UREA NITROGEN [MASS/VOLU ME] IN SERUM OR PLASMA 14 mg/dL 9 - 25 09/19 Specimen Type: PLASMA No comment entered. Ordering Provider: SHAYY HARGROVE Report Released Date/Time: Sep 19, 2024 10:09 AM Reporting Lab: [place] [facility] [address] [place] [address] Performing Lab: [place] [facility] [address] [place] [address] [facility] COMPREHE NSIVE METABOLI C PANEL GLUCOSE [MASS/VOLU ME] IN SERUM OR PLASMA 104 mg/dL 72 - 99 09/19 H Specimen Type: PLASMA No comment entered. Ordering Provider: SHAYY HARGROVE Report Released Date/Time: Sep 19, 2024 10:09 AM Reporting Lab: [place] [facility] [address] [place] [address] Performing Lab: [place] [facility] [address] [place] [address] [facility] COMPREHE NSIVE METABOLI C PANEL SODIUM [MOLES/VOL UME] IN SERUM OR PLASMA 140 meq/L 136 - 145 09/19 Specimen Type: PLASMA No comment entered. Ordering Provider: SHAYY HARGROVE Report Released Date/Time: Sep 19, 2024 10:09 AM Reporting Lab: [place] [facility] [address] [place] [address] Performing Lab: [place] [facility] [address] [place] [address] [facility] COMPREHE NSIVE METABOLI C PANEL POTASSIUM [MOLES/VOL UME] IN SERUM OR PLASMA 4.1 meq/L 3.5 - 5 09/19 Specimen Type: PLASMA No comment entered. Ordering Provider: SHAYY HARGROVE Report Released Date/Time: Sep 19, 2024 10:09 AM Reporting Lab: [place] [facility] [address] [place] [address] Performing Lab: [place] [facility] [address] [place] [address] [place] [facility] COMPREHE NSIVE METABOLI C PANEL CHLORIDE [MOLES/VOL UME] IN SERUM OR PLASMA 105 meq/L 98 - 107 09/19 Specimen Type: PLASMA No comment entered. Ordering Provider: SHAYY HARGROVE Report Released Date/Time: Sep 19, 2024 10:09 AM Reporting Lab: [place] [facility] [address] [place] [address] Performing Lab: [place] [facility] [address] [place] [address] [facility] COMPREHE NSIVE METABOLI C PANEL CARBON DIOXIDE, TOTAL [MOLES/VOL UME] IN SERUM OR PLASMA 24 meq/L 22 - 31 09/19 Specimen Type: PLASMA No comment entered. Ordering Provider: SHAYY HARGROVE Report Released Date/Time: Sep 19, 2024 10:09 AM Reporting Lab: [place] [facility] [address] [place] [address] Performing Lab: [place] [facility] [address] [place] [address] [facility] COMPREHE NSIVE METABOLI C PANEL CALCIUM [MASS/VOLU ME] IN SERUM OR PLASMA 10.0 mg/dL 8.4 - 10.4 09/19 Specimen Type: PLASMA No comment entered. Ordering Provider: SHAYY HARGROVE Report Released Date/Time: Sep 19, 2024 10:09 AM Reporting Lab: [place] [facility] [address] [place] [address] Performing Lab: [place] [facility] [address] [place] [address] [facility] COMPREHE NSIVE METABOLI C PANEL PROTEIN [MASS/VOLU ME] IN SERUM OR PLASMA 7.5 g/dL 6 - 8.6 09/19 Specimen Type: PLASMA No comment entered. Ordering Provider: SHAYY HARGROVE Report Released Date/Time: Sep 19, 2024 10:09 AM Reporting Lab: [place] [facility] [address] [place] [address] Performing Lab: [place] [facility] [address] [place] [address] [facility] COMPREHE NSIVE METABOLI C PANEL ALBUMIN [MASS/VOLU ME] IN SERUM OR PLASMA 4.3 g/dL 3.4 - 5 09/19 Specimen Type: PLASMA No comment entered. Ordering Provider: SHAYY HARGROVE Report Released Date/Time: Sep 19, 2024 10:09 AM Reporting Lab: [place] [facility] [address] [place] [address] Performing Lab: [place] [facility] [address] [place] [address] [facility] COMPREHE NSIVE METABOLI C PANEL BILIRUBIN. TOTAL [MASS/VOLU ME] IN SERUM OR PLASMA 0.2 mg/dL 0.2 - 1.2 09/19 Specimen Type: PLASMA No comment entered. Ordering Provider: SHAYY HARGROVE R Report Released Date/Time: Sep 19, 2024 10:09 AM Reporting Lab: [place] [facility] [address] [place] [address] Performing Lab: [place] [facility] [address] [place] [address] [facility] COMPREHE NSIVE METABOLI C PANEL ALKALINE PHOSPHATAS E [ENZYMATIC ACTIVITY/V OLUME] IN SERUM OR PLASMA 109 U/L 40 - 150 09/19 Specimen Type: PLASMA No comment entered. Ordering Provider: SHAYY HARGROVE Report Released Date/Time: Sep 19, 2024 10:09 AM Reporting Lab: [place] [facility] [address] [place] [address] Performing Lab: [place] [facility] [address] [place] [address] [facility] COMPREHE NSIVE METABOLI C PANEL ASPARTATE AMINOTRANS FERASE [ENZYMATIC ACTIVITY/V OLUME] IN SERUM OR PLASMA 16 U/L 5 - 34 09/19 Specimen Type: PLASMA No comment entered. Ordering Provider: SHAYY HARGROVE Report Released Date/Time: Sep 19, 2024 10:09 AM Reporting Lab: [place] [facility] [address] [place] [address] Performing Lab: [place] [facility] [address] [place] [address] [facility] COMPREHE NSIVE METABOLI C PANEL ALANINE AMINOTRANS FERASE [ENZYMATIC ACTIVITY/V OLUME] IN SERUM OR PLASMA 12 U/L 8 - 40 09/19 Specimen Type: PLASMA No comment entered. Ordering Provider: SHAYY HARGROVE Report Released Date/Time: Sep 19, 2024 10:09 AM Reporting Lab: [place] [facility] [address] [place] [address] Performing Lab: [place] [facility] [address] [place] [address] [facility] COMPREHE NSIVE METABOLI C PANEL GLOMERULAR FILTRATION RATE/1.73 SQ M.PREDICTE D [VOLUME RATE/AREA] IN SERUM, PLASMA OR BLOOD BY CREATININE -BASED FORMULA (CKD-EPI 2020) 63 09/19 Specimen Type: PLASMA No comment entered. Ordering Provider: SHAYY HARGROVE Report Released Date/Time: Sep 19, 2024 10:09 AM Reporting Lab: [place] [facility] [address] [place] [address] Performing Lab: [place] [facility] [address] [place] [address] [facility] CHOLESTE ROL PANEL (PB) CHOLESTERO L [MASS/VOLU ME] IN SERUM OR PLASMA 222 mg/dL 0 - 200 09/19 H Specimen Type: PLASMA No comment entered. Ordering Provider: SHAYY HARGROVE Report Released Date/Time: Sep 19, 2024 10:09 AM Reporting Lab: [place] [facility] [address] [place] [address] Performing Lab: [place] [facility] [address] [place] [address] [facility] CHOLESTE ROL PANEL (PB) TRIGLYCERI DE [MASS/VOLU ME] IN SERUM OR PLASMA 120 mg/dL 0 - 150 09/19 Specimen Type: PLASMA No comment entered. Ordering Provider: SHAYY HARGROVE R Report Released Date/Time: Sep 19, 2024 10:09 AM Reporting Lab: [place] [facility] [address] [place] [address] Performing Lab: [place] [facility] [address] [place] [address] [facility] CHOLESTE ROL PANEL (PB) CHOLESTERO L IN LDL [MASS/VOLU ME] IN SERUM OR PLASMA BY CALCULAJESSICAO N 140.5 mg/dL 09/19 Specimen Type: PLASMA No comment entered. Ordering Provider: SHAYY HARGROVE Report Released Date/Time: Sep 19, 2024 10:09 AM Reporting Lab: [place] [facility] [address] [place] [address] Performing Lab: [place] [facility] [address] [place] [address] [facility] CHOLESTE ROL PANEL (PB) CHOLESTERO L IN HDL [MASS/VOLU ME] IN SERUM OR PLASMA 57.5 mg/dL 40 09/19 H Specimen Type: PLASMA No comment entered. Ordering Provider: SHAYY HARGROVE R Report Released Date/Time: Sep 19, 2024 10:09 AM Reporting Lab: [place] [facility] [address] [place] [address] Performing Lab: [place] [facility] [address] [place] [address] [facility] CHOLESTE ROL PANEL (PB) CHOLESTERO L IN HDL/CHOLES TEROL.TOTA L [MASS RATIO] IN SERUM OR PLASMA 25.9 25 09/19 Specimen Type: PLASMA No comment entered. Ordering Provider: SHAYY HARGROVE R Report Released Date/Time: Sep 19, 2024 10:09 AM Reporting Lab: [place] [facility] [address] [place] [address] Performing Lab: [place] [facility] [address] [place] [address] [facility] TSH (MA-PB) THYROTROPI N [UNITS/VOL UME] IN SERUM OR PLASMA 2.264 u[IU]/mL 0.47 - 5 09/19 Specimen Type: SERUM No comment entered. Ordering Provider: SHAYY HARGROVE Report Released Date/Time: Sep 19, 2024 10:09 AM Reporting Lab: [place] [facility] [address] [place] [id number] Performing Lab: [place] [facility] [address] [place] [address] [facility] URINALYS IS (STL-PB) COLOR OF URINE Light Yellow 09/19 Specimen Type: URINE No comment entered. Ordering Provider: SHAYY HARGROVE Report Released Date/Time: Sep 19, 2024 10:09 AM Reporting Lab: [place] [facility] [address] [place] [id number] Performing Lab: [place] [facility] [address] [place] [address] [facility] URINALYS IS (STL-PB) BILIRUBIN. TOTAL [PRESENCE] IN URINE BY TEST STRIP NEGATIVE mg/dL 09/19 Specimen Type: URINE No comment entered. Ordering Provider: SHAYY HARGROVE R Report Released Date/Time: Sep 19, 2024 10:09 AM Reporting Lab: [place] [facility] [address] [place] [address] Performing Lab: [place] [facility] [address] [place] [address] [facility] URINALYS IS (STL-PB) PH OF URINE BY TEST STRIP 6.5 5.0 - 8.0 09/19 Specimen Type: URINE No comment entered. Ordering Provider: SHAYY HARGROVE Report Released Date/Time: Sep 19, 2024 10:09 AM Reporting Lab: [place] [facility] [address] [place] [address] Performing Lab: [place] [facility] [address] [place] [address] [facility] URINALYS IS (STL-PB) APPEARANCE OF URINE CLEAR 09/19 Specimen Type: URINE No comment entered. Ordering Provider: SHAYY HARGROVE Report Released Date/Time: Sep 19, 2024 10:09 AM Reporting Lab: [place] [facility] [address] [place] [address] Performing Lab: [place] [facility] [address] [place] [address] [facility] URINALYS IS (STL-PB) NITRITE [PRESENCE] IN URINE BY TEST STRIP NEGATIVE mg/dL 09/19 Specimen Type: URINE No comment entered. Ordering Provider: SHAYY HARGROVE Report Released Date/Time: Sep 19, 2024 10:09 AM Reporting Lab: [place] [facility] [address] [place] [address] Performing Lab: [place] [facility] [address] [place] [address] [facility] URINALYS IS (STL-PB) GLUCOSE [MASS/VOLU ME] IN URINE BY TEST STRIP NORMALmg /dL 09/19 Specimen Type: URINE No comment entered. Ordering Provider: SHAYY HARGROVE Report Released Date/Time: Sep 19, 2024 10:09 AM Reporting Lab: [place] [facility] [address] [place] [address] Performing Lab: [place] [facility] [address] [place] [address] [facility] URINALYS IS (STL-PB) PROTEIN [MASS/VOLU ME] IN URINE BY TEST STRIP NEGATIVE mg/dL 09/19 Specimen Type: URINE No comment entered. Ordering Provider: SHAYY HARGROVE Report Released Date/Time: Sep 19, 2024 10:09 AM Reporting Lab: [place] [facility] [address] [place] [address] Performing Lab: [place] [facility] [address] [place] [address] [facility] URINALYS IS (STL-PB) URN.UROBIL INOGEN NORMALmg /dL 09/19 Specimen Type: URINE No comment entered. Ordering Provider: SHAYY HARGROVE Report Released Date/Time: Sep 19, 2024 10:09 AM Reporting Lab: [place] [facility] [address] [place] [address] Performing Lab: [place] [facility] [address] [place] [address] [facility] URINALYS IS (STL-PB) HEMOGLOBIN [MASS/VOLU ME] IN URINE BY TEST STRIP NEGATIVE mg/dL 09/19 Specimen Type: URINE No comment entered. Ordering Provider: SHAYY HARGROVE Report Released Date/Time: Sep 19, 2024 10:09 AM Reporting Lab: [place] [facility] [address] [place] [id number] Performing Lab: [place] [facility] [address] [place] [address] [facility] URINALYS IS (STL-PB) KETONES [MASS/VOLU ME] IN URINE BY TEST STRIP NEGATIVE mg/dL 09/19 Specimen Type: URINE No comment entered. Ordering Provider: SHAYY HARGROVE Report Released Date/Time: Sep 19, 2024 10:09 AM Reporting Lab: [place] [facility] [address] [place] [id number] Performing Lab: [place] [facility] [address] [place] [address] [facility] URINALYS IS (STL-PB) URN.LEUK.E ST. NEGATIVE 09/19 Specimen Type: URINE No comment entered. Ordering Provider: SHAYY HARGROVE Report Released Date/Time: Sep 19, 2024 10:09 AM Reporting Lab: [place] [facility] [address] [place] [phone] Performing Lab: [place] [facility] [address] [place] [id number] [facility] URINALYS IS (STL-PB) SPECIFIC GRAVITY OF URINE 1.017 1.005 - 1.029 09/19 Specimen Type: URINE No comment entered. Ordering Provider: SHAYY HARGROVE Report Released Date/Time: Sep 19, 2024 10:09 AM Reporting Lab: [place] [facility] [address] [place] [address] Performing Lab: [place] [facility] [address] [place] [address] [facility] VITAMIN D, 25-HYDRO XY 25-HYDROXY VITAMIN D3 [MASS/VOLU ME] IN SERUM OR PLASMA 29.7 ng/mL 30 - 96 09/19 L Specimen Type: SERUM No comment entered. Ordering Provider: SHAYY HARGROVE Report Released Date/Time: Sep 19, 2024 10:09 AM Reporting Lab: [place] [facility] [address] [place] [address] Performing Lab: [place] [facility] [address] [place] [address] [facility] C-REACTI VE PROTEIN* NE C REACTIVE PROTEIN [MASS/VOLU ME] IN SERUM OR PLASMA <0.5mg/d L < 1.0 - 1.0 07/15 Specimen Type: BLOOD Comment: eGFR(mL/min /1.73 m2) CKD stage Interpretat ion >=90 G1 Normal 60-89 G2 Mild decrease 45-59 G3A Mild to moderate decrease 30-44 G3B Moderate to severe decrease 15-29 G4 Severe decrease <15 G5 Kidney failure Ordering Provider: NATALIE GALICIA Report Released Date/Time: Jul 15, 2024 01:20 PM Reporting Lab: [facility] [address] [place] [address] Performing Lab: [facility] [address] [facility] Vital Signs Combined list of inpatient and outpatient Vital Signs from Department of Defense and Veterans Affairs, ranging from 12 months to all on record, depending upon the facility. Vital Sign Value Date Comments Source SYSTOLIC BLOOD PRESSURE 129 03/20/2025 08:40:00 [facility] DIASTOLIC BLOOD PRESSURE 84 03/20/2025 08:40:00 [place] [facility] PULSE OXIMETRY 97 03/20/2025 08:40:00 [facility] WEIGHT 165.1 03/20/2025 08:40:00 [place] [facility] BMI 29 kg/m2 03/20/2025 08:40:00 [place] [facility] TEMPERATURE 97.7 03/20/2025 08:40:00 [place] [facility] PULSE 79 03/20/2025 08:40:00 [place] [facility] SYSTOLIC BLOOD PRESSURE 134 09/19/2024 09:25:55 [place] [facility] DIASTOLIC BLOOD PRESSURE 88 09/19/2024 09:25:55 [place] [facility] PULSE OXIMETRY 99 09/19/2024 09:25:55 [place] [facility] WEIGHT 163.6 09/19/2024 09:25:55 [place] [facility] BMI 29 kg/m2 09/19/2024 09:25:55 [place] [facility] PAIN 0 09/19/2024 09:25:55 [place] [facility] HEIGHT 63 09/19/2024 09:25:55 [place] [facility] TEMPERATURE 98.4 09/19/2024 09:25:55 [place] [facility] PULSE 77 09/19/2024 09:25:55 [place] [facility] RESPIRATION 18 09/19/2024 09:25:55 [facility] Encounters Combined list of: 1) Encounters from Department of Veterans [facility] facilities going backup to the last 18 months, not all VA inpatient encounters are included; 2) Encounters from the Department of [facility] facilities going backup to 280 months. Location Location Details Encounter Type Encounter Number Reason For Visit Attending Provider ADM Date DC Date Status Disposition Source [facility] OFFICE O/P NEW MOD 45 MIN [id number] Diagnos is: ICD-10- CM M06.9 Rheumat oid arthrit is, unspeci MICHEAL Scott 10/31 [facility] Outpatient Encounter [id number] 12[facility]14 [facility] PHONE CALL 5-10 MIN [id number] Diagnos is: ICD-10- CM Z76.0 Encount er for issue of repeat prescri ptTMAIKO Aguilar IE A 12/20 [facility] Outpatient Encounter [id number] 12/21 [facility] HC PRO PHONE CALL 5-10 MIN [id number] Diagnos is: ICD-10- CM Z71.89 Other specifi ed recreational counselor ing LINAMORRISON IE A 12/26 [facility] THER/PROPH /DIAG INJ SC/IM [id number] Diagnos is: ICD-10- CM M25.561 Pain in right knee EMILY CHOW M 01/14 [place] [facility] [place] [facility] OFF[facility] O/P EST LOW 20 MIN [id number] Diagnos is: ICD-10- CM M25.561 Pain in right knee JAH FIGUEREDO G 01/14 [place] [facility] HC PRO PHONE CALL 5-10 MIN [id number] Diagnos is: ICD-10- CM Z71.89 Other specifi ed recreational counselor ing LINAMORRISON IE A 01/14 [facility] OFFICE O/P EST MOD 30 MIN [id number] Diagnos is: ICD-10- CM M06.9 Rheumat oid arthrit is, unspeci fied LIVAN,A MY C 01/29 [facility] Outpatient Encounter [id number] 01/30 [facility] OFF[facility] O/P EST MOD 30 MIN [id number] Diagnos is: ICD-10- CM Z01.810 Encount er for preproc edural cardiov ascular examina CALI Lott 01/30 [facility], [facility] OFFICE O/P EST MOD 30 MIN [id number] Diagnos is: ICD-10- CM M06.9 Rheumat oid arthrit is, unspeci rené LICONA,See MY C 03/12 [facility] Outpatient Encounter [id number] 04/08 [facility] ORTHOTIC MGMT&TRAIN G 1ST ENC [id number] Diagnos is: ICD-10- CM M25.561 Pain in right knee NEYDA TOURE 04/15 [facility] HC PRO PHONE CALL 5-10 MIN [id number] Diagnos is: ICD-10- CM Z76.0 Encount er for issue of repeat prescri ption CROPP,MORRISON IE A 04/19 [facility] OFFICE O/P EST LOW 20 MIN [id number] Diagnos is: ICD-10- CM C44.311 Basal cell carcino ma of skin of nose SABRINA MCBRIDE S 04/24 [facility] OFFICE O/P EST MOD 30 MIN [id number] Diagnos is: ICD-10- CM M06.9 Rheumat oid arthrit is, unspeci fied LIVAN,A MY C 07/15 [facility] Outpatient Encounter [id number] 07/24 [facility] Outpatient Encounter [id number] CROPP,MORRISON IE A 08/29 [facility] [place] [facility] HC PRO PHONE CALL 5-10 MIN [id number] Diagnos is: ICD-10- CM Z12.2 Encntr screen for maligna nt neoplas m of respira tory organs YOAST,MATTIE AN E 09/17 [place] [facility] Outpatient Encounter [id number] COURTNEY HARGROVE R 09/19 [facility] OFFICE O/P NEW MOD 45 MIN [id number] Diagnos is: ICD-10- CM F43.12 Post-tr aumatic stress disorde r, chronic COURTNEY HARGROVE THERINE R 09/19 [facility] Outpatient Encounter [id number] 09/22 [facility] En[facility] [id number] 09/30 [facility] Encounter [id number] 10/03 [facility] [id number] 10/03 [facility] Encounter [id number] 10/03 [facility] Outpatient Encounter [id number] 10/08 [facility] Outpatient Encounter [id number] 10/10 [facility] Outpatient Encounter [id number] SHANITA MATTHEWS C 10/11 [facility] Outpatient Encounter [id number] 10/14 [facility] OFFICE O/P EST MOD 30 MIN [id number] Diagnos is: ICD-10- CM M06.9 Rheumat oid arthrit is, unspeci fied LIVAN,See MY C 10/14 [facility] Outpatient Encounter [id number] 10/18 [facility] Outpatient Encounter [id number] 10/18 [facility] [place] [id number] Diagnos is: ICD-10- CM K02.52 Dental caries on pit and fissure surfc penetra t into dentin BAYLEE TALBOT 10/21 [facility] Outpatient Encounter [id number] 10/24 [facility] Outpatient Encounter [id number] 10/30 [facility] En[facility] [id number] KETURAH SOMERS J 10/31 [facility] Encounter [id number] 11/05 [facility] Outpatient Encounter [id number] 11/05 [facility] Outpatient Encounter [id number] 11/06 [facility] Outpatient Encounter [id number] 11/06 [facility] Outpatient Encounter [id number] BABS VOGEL F 11/11 [facility] Outpatient Encounter [id number] 11/14 [facility] Outpatient Encounter [id number] 11/18 [facility] Outpatient Encounter [id number] Erin LUCIANO 11/20 [facility] Outpatient Encounter [id number] Diana PARKINSON 12/03 [facility] Outpatient Encounter [id number] 12/05 [facility] Outpatient Encounter [id number] 12/27 [facility] Outpatient Encounter [id number] 12/31 [facility] MTMS BY PHARM GENERAL [place] 15 MIN [id number] Diagnos is: ICD-10- CM M06.9 Rheumat oid arthrit is, unspeci ROSA Gentile V 01/01 [facility] Outpatient Encounter [id number] 01/15 [facility] Outpatient Encounter [id number] 01/16 [facility] Outpatient Encounter [id number] 01/21 [facility] Outpatient Encounter [id number] Erin LUCIANO 02/11 [facility] OFFICE O/P EST MOD 30 MIN [id number] Diagnos is: ICD-10- CM M06.9 Rheumat oid arthrit is, unspeci COURTNEY Smiley 03/20 [facility] Outpatient Encounter [id number] 03/20 [facility] Outpatient Encounter [id number] 04/02 [place] [facility] Outpatient Encounter [id number] GAILLOPEZ CARSON D 04/02 [facility] Outpatient Encounter [id number] 04/04 [facility] Outpatient Encounter [id number] 04/23 [facility] Procedures Combined list of: 1) Procedures from 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 Procedure Procedure Type Code Date Perfomer Comments Sourc e ANTHRAX VACCINE, FOR SUBCUTANEOUS OR INTRAMUSCULAR USE 01/06/2004 [facility] PURE TONE AUDIOMETRY (THRESHOLD); AIR ONLY 07/13/2004 [facility] GONIOSCOPY (SEPARATE PROCEDURE) 07/13/2004 [facility] Social History Combined list of available smoking, tobacco, and other social history from Department of Defense and Veterans Affairs facilities. Social History Type Response Date Comment Sourc e Tobacco smoking status NHIS VA-TOBACCO USE FORMER CIGARETTES 09/19/2024 [facility] History of tobacco use VA-TOBACCO NEVER USED OTHER TYPE 09/19/2024 [facility] History of tobacco use VA-TOBACCO FORMER USER 01/31/2024 [facility] History of tobacco use VA-TOBACCO FORMER USER 02/14/2023 [facility] History of tobacco use VA-TOBACCO FORMER USER 02/21/2022 [facility] History of tobacco use VA-TOBACCO FORMER USER 02/16/2021 [facility] History of tobacco use MI-TOBACCO QUIT 5 TO < 15 YRS 12/24/2019 [facility] History of tobacco use VA-TOBACCO FORMER USER 11/22/2018 [facility] History of tobacco use FORMER TOBACCO USER 7Y OR GREATER 03/20/2014 [facility] History of tobacco use FORMER TOBACCO USE >1Y <7Y 06/15/2012 [facility] History of tobacco use FORMER TOBACCO USE >1Y <7Y 08/09/2011 [facility] History of tobacco use FORMER TOBACCO USE >1Y <7Y 07/28/2009 [facility] History of tobacco use CURRENT NON-SMOKER 04/27/2006 [facility] History of tobacco use CURRENT SMOKER 01/13/2005 1 ppd [facility] History of tobacco use CURRENT SMOKER 09/09/2004 1 ppd [facility] This section is an empty social history section. DoD Plan of Care List of future care activities from Department of Veterans Affairs facilities. Additional future care activities may be listed in the Assessment and Plan section. Date/Time Care Activity Care Activity Detail Byroni jurgen 09/23/2025 AMBULATORY - MEDICINE AMBULATORY - MEDICI [facility]
--- OUTSIDE RECORDS SUMMARY | 2025-04-25 08:13 | XMS_ITS | Clinical Summary ---
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 Mushroom Growing Supervisor Name Role Phone Unavailable Primary Care Provider Unavailabl e Encounters Date Type Department Care Team Description 04/23/2025 External Device Data [facility] Provider, Abstract 03/25/2025 External Device Data [facility] Provider, Abstract 03/04/2025 External Device Data [facility] Provider, Abstract 02/26/2025 External Device Data [facility] Provider, Abstract 02/25/2025 External Device Data [facility] Provider, Abstract 02/11/2025 External Device Data [facility] Provider, Abstract from Last 3 Months Social History Tobacco Use Types Packs/Day Years Used Date Smoking Tobacco: Never Assessed Comments Unknown Sex and Gender Information Value Date Recorded Sex Assigned at Not on file 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
--- OUTSIDE RECORDS SUMMARY | 2025-04-25 08:13 | XMS_ITS | Encounter Summary ---
Author Organization [facility] Address 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
[2025-04-25 08:18] VITALS: BP 132/79; PULSE 78; RESP 18; TEMP 36.6; O2SAT 99; BMI 28.3
--- NOTE | 2025-04-25 08:59 | W.ED.EXTPRO ---
HPI - Extremity Problem General: Chief complaint: Extremity Injury, Lower Stated complaint: left knee pain Time Seen by Provider: 04/25/25 08:04 History of Present Illness: 60-year-old female she twisted her left knee while walking is pain on the lateral portion. No other injury. She has only been able to partially bear weight using crutches she had at home previously. Related Data Home Medications ?Medication ?Instructions ?Recorded ?Confirmed amitriptyline 50 mg tablet 50 mg PO DAILY 10/30/24 12/31/24 bupropion HCl 150 mg 24 hr tablet, 150 mg PO QPM 10/30/24 12/31/24 extended release calcium 315 mg (as 1 tab PO BID 10/30/24 12/31/24 citrate)-vitamin D3 5 mcg (200 unit) tablet diclofenac sodium 1 % topical gel 2 g topical QID 10/30/24 12/31/24 (Arthritis Pain (diclofenac)) Held on 04/25/25. Instructions: Resume on 05/02/25. docusate sodium 50 mg capsule 50 mg PO BID 10/30/24 12/31/24 loratadine 10 mg tablet 10 mg PO DAILY 10/30/24 12/31/24 pantoprazole 40 mg granules 40 mg PO DAILY 10/30/24 12/31/24 delayed-release for susp in packet sennosides 8.6 mg-docusate sodium 1 tab-cap PO DAILY 10/30/24 12/31/24 50 mg tablet syringe with needle 1 mL 27 gauge 10/30/24 12/31/24 x 3/8 (BD Tuberculin Slip-Tip) zolpidem 5 mg tablet 5 mg PO DAILY 10/30/24 12/31/24 Previous Rx's ?Medication ?Instructions ?Recorded adalimumab 40 mg/0.8 mL 40 mg (0.8 mL) SUBCUT .[id number] #2 12/31/24 subcutaneous pen kit ea folic acid 1 mg tablet 4 mg (4 x 1 mg) PO DAILY #360 tabs 12/31/24 hydroxychloroquine 300 mg tablet 300 mg PO DAILY #90 tabs 12/31/24 prednisone 20 mg tablet See Rx Instructions PO .COMPLEX 12/31/24 PRN joint pain flare #30 tabs syringe with needle, safety 1 mL #50 ea 03/13/25 28 gauge x 1/2 (Monoject TB Safety Syringe) methotrexate sodium 25 mg/mL 17.5 mg (0.7 mL) SUBCUT .Q7days 04/07/25 injection solution #10 mL diclofenac sodium 75 mg 75 mg PO Q12H PRN pain #20 tabs 04/25/25 tablet,delayed release Allergies Allergy/AdvReac Type Severity Reaction Status Date / Time Latex, Natural Rubber Allergy Intermediate hives Verified 12/31/24 09:25 small pox vaccine Allergy Intermediate swelling Uncoded 12/31/24 09:25 Review of Systems Musc: Reports: joint pain PFSH ED PFSH: Medical History Immunization counseling High risk medication use Seropositive rheumatoid arthritis of multiple sites Rheumatoid arthritis diag 2014 NAYAN aBrry Basal cell carcinoma (BCC) Depression with anxiety PTSD (post-traumatic stress disorder) GERD (gastroesophageal reflux disease) Allergies History of skin cancer Surgical History History of colonoscopy with polypectomy Hx of arthroscopic knee surgery History of carpal tunnel surgery Family History Other Cancer Chronic kidney disease (CKD) Crohn's disease Denies family history of Lupus (systemic lupus erythematosus) Rheumatoid arthritis Migraines Hypertension Stroke Social History Smoking and tobacco/nicotine status: former use of tobacco/nicotine (quit 2004) Physical Exam Const: COMMON NORMALS: no acute distress GENERAL APPEARANCE: cooperative and comfortable ORIENTATION/CONSCIOUSNESS: Yes awake, Yes oriented to person, Yes oriented to place and Yes oriented to time HENMT: COMMON NORMALS: normocephalic, atraumatic and hearing grossly normal bilaterally HEAD & SCALP: normocephalic and atraumatic Extremity: OTHER: Examination left knee no joint instability or laxity pain with palpation over the lateral collateral ligament no joint effusion Neuro: SENSORIUM/ORIENTATION: Yes oriented to person, Yes oriented to place and Yes oriented to time Skin: COMMON NORMALS: no rashes or lesions noted GENERAL SKIN EXAM: no rashes or lesions noted Course Vital Signs: Vital signs: Vital Signs Temperature 97.9 F 04/25/25 08:18 Pulse Rate 71 04/25/25 09:00 Respiratory Rate 18 04/25/25 08:18 Blood Pressure 109/73 04/25/25 09:00 Pulse Oximetry 91 04/25/25 09:00 Oxygen Delivery Me thod Room Air 04/25/25 08:18 MDM - Extremity (Nontraumatic) Medical Decision Making X-ray left knee unremarkable. Discharged home crutches knee immobilizer anti-inflammatories and follow-up with orthopedic clinic Lab Data Radiology Impressions Knee X-Ray 04/25/25 08:05 IMPRESSION: Stable knee with no acute abnormality. All radiology interpretation(s) finalized by discharge Discharge Plan Discharge Patient Disposition: Home Clinical Impression: Left knee sprain Condition: Stable Prescriptions: New diclofenac sodium 75 mg tablet,delayed release (DR/EC) 75 mg PO Q12H PRN (Reason: pain) Qty: 20 0RF Held diclofenac sodium [Arthritis Pain (diclofenac)] 1 % gel 2 g topical QID Hold Instructions: Resume on 05/02/25. Rx Instructions: apply to single elbow, wrist or hand; for hand includes palm/fingers/back of hand No Action amitriptyline 50 mg tablet 50 mg PO DAILY docusate sodium 50 mg capsule 50 mg PO BID zolpidem 5 mg tablet 5 mg PO DAILY calcium citrate-vitamin D3 315 mg-5 mcg (200 unit) tablet 1 tab PO BID pantoprazole [address] for susp in packet 40 mg PO DAILY sennosides-docusate sodium 8.6-50 mg tablet 1 tab-cap PO DAILY (DME) BD Tuberculin Slip-Tip 1 mL 27 gauge x 3/8 syringe See Rx Instructions .Route Rx Instructions: As directed bupropion HCl 150 mg tablet extended release 24 hr 150 mg PO QPM loratadine 10 mg tablet 10 mg PO DAILY prednisone 20 mg tablet See Rx Instructions PO .COMPLEX PRN (Reason: joint pain flare) Qty: 30 1RF Rx Instructions: take 1 or 2 tab daily for up to 7 days as needed for arthritis flare PO PRN; adalimumab 40 mg/0.8 mL pen injector kit 40 mg SUBCUT .W22athk Qty: 2 5RF folic acid 1 mg tablet 4 mg PO DAILY Qty: 360 3RF hydroxychloroquine 300 mg tablet 300 mg PO DAILY Qty: 90 1RF (DME) Monoject TB Safety Syringe 1 mL 28 gauge x 1/2 syringe See Rx Instructions .[facility] 0RF Rx Instructions: As directed methotrexate sodium 25 mg/mL solution 17.5 mg SUBCUT .Q7days Qty: 10 1RF Discharge Orders: Discharge ED (Routine); Ordered 04/25/25 Ordered By: Anibal Porter Discharge Diet: Usual diet Discharge Activity: Limit activity as instructed Patient Instructions: Opioid Safety, Pain Management, Patient Portal & Karlee Instructions Activity Restrictions/Additional Instructions: Thank you for choosing [facility] for your healthcare needs today. It is very important that you follow up as instructed or that you return to the Emergency Department should you have concerns or if your condition changes or worsens in any way. You are seen today with left knee sprain injury description of the injury sounds like you did sprain to the lateral collateral ligament. Will let you use crutches partial weightbearing on the left leg also gave you a knee immobilizer you can use heat oral diclofenac as needed case management make arrangements for her to follow-up with orthopedics. Print Language: Azeri Coding Level of Care Code ED Shift Mechanic for Emma Walters
[2025-04-25 09:00] VITALS: BP 109/73; PULSE 71; O2SAT 91
--- NOTE | 2025-04-28 07:21 | DCPLANNER ---
Message sent to Ortho for follow up.
== END 2025-04-25 09:07 | disposition home or self-care (01) ==
PROVIDERS: Emergency Provider Family Medicine
DX: S83.92XA Sprain of unspecified site of left knee, initial encounter (principal); Z87.891 Personal history of nicotine dependence; Z85.828 Personal history of other malignant neoplasm of skin; X58.XXXA Exposure to other specified factors, initial encounter
CPT/HCPCS: 29530; 73562; 99283

== ENCOUNTER → 2025-05-21 07:58 | Outpatient (BNVA) | payer OTHER, SELFPAY | PROVIDERS: PCP Nurse Practitioner; Visit Provider Specialist | DX: S83.92XA Sprain of unspecified site of left knee, initial encounter (principal); X58.XXXA Exposure to other specified factors, initial encounter; Z46.89 Encounter for fitting and adjustment of other specified devices | CPT/HCPCS: 73560; 73565 ==

== ENCOUNTER 2025-05-21 10:39 | Outpatient (CLI) | payer OTHER, SELFPAY | END 2025-05-21 10:40 | disposition home or self-care (01) | LOC: SPT 10:44 | PROVIDERS: PCP Nurse Practitioner; Visit Provider Specialist | DX: Z46.89 Encounter for fitting and adjustment of other specified devices (principal); M25.562 Pain in left knee | CPT/HCPCS: 99214; L1812 ==

== ENCOUNTER 2025-05-26 07:45 | Outpatient (CLI) | payer OTHER, SELFPAY ==
--- NOTE | 2025-05-26 08:00 | MR_ITS ---
WS: [id number] MRI LEFT KNEE NONCONTRAST TECHNIQUE: Axial PD, coronal PD fat sat, coronal PD, sagittal PD, and sagittal PD fat-sat images obtained. CLINICAL INFORMATION: left knee pain COMPARISON: None. FINDINGS: Distal quadriceps and patella tendons are intact. Hypertrophic patella. Large suprapatellar effusion. High-grade tear of the ACL. Few normal fibers visualized on the coronal imaging. PCL appears intact. Small amount of contusion involving the medial tibial plateau. Moderate chondromalacia patella. Chronic thinning of the medial and lateral meniscus. No definite acute appearing meniscal tears. Medial and lateral collateral ligaments appear intact. Popliteus appears intact with diffuse increased signal along the origin. Normal fibula head. Moderate tricompartmental arthritis. This is worse in the medial joint compartment. Soft tissue edema about the joint line. MR/MR knee LT wo con* [id number] IMPRESSION: 1. High-grade tear of the ACL with diffuse irregularity. A few normal fibers a re visualized on the coronal imaging. 2. PCL appears intact. 3. Chronic thinning of the medial and lateral meniscus although no definite ac dinora appearing meniscal tears. Some images degraded by motion. 4. Moderate tricompartment arthritis with grade III chondromalacia. 5. Large suprapatellar effusion. 6. Edema within the medial tibial plateau. 7. Medial and lateral collateral ligaments appear grossly intact. 8. Small amount of increased signal along the popliteus origin suspicious for partial tear or tendinosis. Outbridge grading: grade III: partial-thickness cartilage loss with focal ulcer ation
== END 2025-05-26 07:46 | disposition home or self-care (01) ==
LOC: RAD 07:46
PROVIDERS: PCP Nurse Practitioner; Visit Provider Specialist
DX: M13.862 Other specified arthritis, left knee (principal); M94.262 Chondromalacia, left knee; S83.422A Sprain of lateral collateral ligament of left knee, initial encounter; X58.XXXA Exposure to other specified factors, initial encounter
CPT/HCPCS: 73721

== ENCOUNTER → 2025-06-02 10:18 | Outpatient (BNVA) | payer OTHER, SELFPAY | PROVIDERS: PCP Nurse Practitioner; Visit Provider Specialist | DX: M17.12 Unilateral primary osteoarthritis, left knee (principal); M05.79 Rheumatoid arthritis with rheumatoid factor of multiple sites without organ or systems involvement | CPT/HCPCS: 20610; 80503; 89050; 99214; J7318 ==

== ENCOUNTER → 2025-06-17 09:28 | Outpatient (BNVA) | payer OTHER, SELFPAY | PROVIDERS: PCP Nurse Practitioner; Visit Provider Internal Medicine Rheumatology | DX: M05.79 Rheumatoid arthritis with rheumatoid factor of multiple sites without organ or systems involvement (principal); Z79.899 Other long term (current) drug therapy; Z71.85 Encounter for immunization safety counseling | CPT/HCPCS: 36415; 80076; 82565; 85025; 85651; 86140; 99214 ==

== ENCOUNTER 2025-10-06 08:50 | Outpatient (CLI) | payer OTHER, SELFPAY ==
--- NOTE | 2025-10-06 08:52 | MM_ITS ---
WS: [id number] BILATERAL SCREENING DIGITAL TOMOSYNTHESIS MAMMOGRAM WITH CAD HISTORY: ANNUAL SCREENINNG COMPARISON: 10/03/2024 Bilateral CC and MLO views with tomosynthesis and synthetic mammography submitted. Computer aided detection analyzed. Breast composition: The breasts are heterogeneously dense, which may obscure small masses. No suspicious masses, microcalcifications or architectural distortion. No change in appearance the breast parenchyma. 4 mm mass in the central breast was present on the prior study but better visualized on today's imaging. Benign calcifications. MM/MM scr tomosynthesis [id number] IMPRESSION: BI-RADS: 2 - Benign FOLLOW UP: 1 Year Follow-up
== END 2025-10-06 08:51 | disposition home or self-care (01) ==
LOC: RAD 08:50
PROVIDERS: PCP Nurse Practitioner; Visit Provider Nurse Practitioner
DX: Z12.31 Encounter for screening mammogram for malignant neoplasm of breast (principal); R92.333 Mammographic heterogeneous density, bilateral breasts; R92.1 Mammographic calcification found on diagnostic imaging of breast; R92.8 Other abnormal and inconclusive findings on diagnostic imaging of breast
CPT/HCPCS: 77063; 77067